=== PATIENT | female | born 1935 | race Caucasian/White ===

== ENCOUNTER 2016-05-26 21:18 | Emergency (ER) | payer MEDICARE, OTHER ==
--- NOTE | 2016-05-26 21:56 | ERPHSYRPT ---
- History of Present Illness Time Seen by Provider: 05/26/16 21:48 Exam Limitations: no limitations Patient Subjective Stated Complaint: pt states she has had a chest cold for a few ddays but has brgun feeling short of breath today. Triage Nursing Assessment: pt alert and oriented, answers questions approp. pt ambulatory with steady gait noted. respirations nonlaboed with lungscta. skin pink warm and dry Physician History: The patient is an 80-year-old female with her complaining of a cough for "some time now". Yesterday she was chilled. The cough brings up white and clear sputum. Today she has a "funny feeling in her chest" when she takes a deep breath. Her said she's had a cough for 3 or 4 years. She denies lightheadedness. She denies chest pain. Her past medical history is significant for hypertension. She denies tobacco use. Timing/Duration: yesterday Activities at Onset: none Severity of Dyspnea-Max: mild Severity of Dyspnea-Current: mild Possible Cause: occasional episodes Modifying Factors: Improves With: nothing Associated Symptoms: cough, productive cough Allergies/Adverse Reactions: No Known Drug Allergies Allergy (Verified 05/26/16 21:35) Home Medications: Verapamil HCl [Verapamil ER] 240 mg PO DAILY 07/27/13 [History] Hx Tetanus, Diphtheria Vaccination/Date Given: No Hx Influenza Vaccination/Date Given: Yes (2015) Hx Pneumococcal Vaccination/Date Given: No - Review of Systems Constitutional: Chills Eyes: No Symptoms Ears, Nose, & Throat: No Symptoms Respiratory: Cough Cardiac: No Chest Pain, No Edema, No Syncope Abdominal/Gastrointestinal: No Abdominal Pain, No Nausea, No Vomiting, No Diarrhea Genitourinary Symptoms: No Dysuria Musculoskeletal: No Back Pain, No Neck Pain Skin: No Rash Neurological: No Dizziness, No Focal Weakness, No Sensory Changes Psychological: No Symptoms Endocrine: No Symptoms Hematologic/Lymphatic: No Symptoms Immunological/Allergic: No Symptoms All Other Systems: Reviewed and Negative - Past Medical History Pertinent Past Medical History: Yes Neurological History: No Pertinent History ENT History: No Pertinent History Cardiac History: Hypertension Respiratory History: No Pertinent History Endocrine Medical History: No Pertinent History Musculoskeletal History: Degenerative Disk Disease, Osteoarthritis GI Medical History: No Pertinent History History: No Pertinent History Psycho-Social History: No Pertinent History Female Reproductive Disorders: No Pertinent History Other Medical History: LB FUSION ~6 YEARS AGO. - Past Surgical History Past Surgical History: Yes Neuro Surgical History: No Pertinent History Cardiac: No Pertinent History Respiratory: No Pertinent History Gastrointestinal: No Pertinent History Genitourinary: No Pertinent History Musculoskeletal: No Pertinent History Female Surgical History: No Pertinent History Other Surgical History: BACK SURGERY--LUMBAR - Social History Smoking Status: Never smoker Exposure to second hand smoke: No Drug Use: none Patient Lives Alone: No Significant Family History: heart disease - Female History Hx Last Menstrual Period: post Hx Now: No - Nursing Vital Signs Nursing Vital Signs: Initial Vital Signs Temperature 97.5 F Temperature Source Oral Pulse Rate 72 Respiratory Rate 22 Blood Pressure [Left Arm] 148/65 Pain Intensity 0 - Physical Exam General Appearance: no apparent distress, alert Eye Exam: PERRL/EOMI Ears, Nose, Throat Exam: hearing grossly normal Neck Exam: normal inspection, supple Respiratory Exam: normal breath sounds Cardiovascular/Chest Exam: normal heart sounds, regular rate/rhythm Abdominal/Gastrointestinal Exam: soft, No tenderness, No distention, No mass Rectal Exam: not done Extremity Exam: non-tender, normal range of motion, normal inspection, no calf tenderness, no pedal edema Neurologic Exam: alert, oriented x 3, cooperative, slipper maker II-XII nml as tested, sensation nml, No motor deficits Skin Exam: normal color, warm, No dry SpO2 Interpretation: normal SpO2: 99 Oxygen Delivery: Room Air - Course EKG Interpreted by Me: Sinus Rhythm, NORMAL INTERVALS, Right Bundle Branch Block , NORMAL ST-T - Radiology Exams Chest X-ray Interpretation: Interpreted by me, Negative, Other (multiple granulomas) Ordered Tests: Active Orders 24 hr Category Date Time Status CHEST 2 VIEWS (PA AND LAT) Stat Exams 05/26/16 22:00 Taken CBC W DIFF Stat Lab 05/26/16 22:01 Completed CMP Stat Lab 05/26/16 22:01 Completed NT PRO BNP Stat Lab 05/26/16 22:01 Completed Lab/Rad Data: Laboratory Result Diagrams 05/26/16 22:01 05/26/16 22:01 Laboratory Results 05/26/16 05/26/16 Range/Units 22:01 22:01 WBC 10.1 (4.0-10.5) K/mm3 RBC 4.16 (4.1-5.4) M/mm3 Hgb 13.3 (12.0-16.0) gm/dl Hct 40.1 (35-47) % MCV 96.4 (78-100) fl MCH 32.0 (26-32) pg MCHC 33.2 (32-36) g/dl RDW 13.4 (11.5-14.0) % Plt Count 210 (150-450) K/mm3 MPV 11.1 H (6-9.5) fl Gran % 61.4 (36.0-66.0) % Lymphocytes % 27.0 (24.0-44.0) % Monocytes % 10.5 (0.0-12.0) % Eosinophils % 1.0 (0.00-5.0) % Basophils % 0.1 (0.0-0.4) % Basophils # 0.01 (0-0.4) Sodium 142 (136-145) mEq/L Potassium 3.6 (3.5-5.1) mEq/L Chloride 104 (98-107) mEq/L Carbon Dioxide 26.8 (21-32) mEq/L Anion Gap 15.1 H (5-15) MEQ/L BUN 10 (9-20) mg/dL Creatinine 0.81 (0.55-1.30) mg/dl Estimated GFR > 60 ML/MIN Glucose 101 (70-110) MG/DL Calcium 8.8 (8.5-10.1) mg/dL Total Bilirubin 0.4 (0.2-1.0) mg/dL AST 13 L (15-37) U/L ALT 7 L (12-78) U/L Alkaline Phosphatase 77 (46-116) U/L NT-Pro-B Natriuret Pep 304 (0-450) pg/ml Serum Total Protein 6.5 (6.4-8.2) gm/dL Albumin 3.1 L (3.4-5.0) g/dL - Progress Progress: improved Air Movement: good Blood Culture(s) Obtained: No Antibiotics given: No Counseled pt/family regarding: lab results, diagnosis, rad results - Departure Time of Disposition: 22:58 Departure Disposition: Home Clinical Impression: Cough Condition: Stable Critical Care Time: No Additional Instructions: Take the azithromycin as directed. Tylenol and Ibuprofen as needed. Follow up in 2 to 3 days if no improvement. Prescriptions: Azithromycin [Azithromycin 250 mg Pack] 250 mg PO UD #6 tablet
[2016-05-26 22:12] LABS: BASOPHIL % 0.1 % (0.0-0.4); Granulocytes % 61.4 % (36.0-66.0); Mean Cell Volume 96.4 fl (78-100); Mean Platelet Volume 11.1 fl (6-9.5); Monocytes % 10.5 % (0.0-12.0); Platelet Count 210 K/mm3 (150-450); Red Blood Count 4.16 M/mm3 (4.1-5.4); Red Cell Distribution Width 13.4 % (11.5-14.0); White Blood Count 10.1 K/mm3 (4.0-10.5)
[2016-05-26 22:22] LABS: ALBUMIN 3.1 g/dL (3.4-5.0); ALKALINE PHOSPHATASE 77 U/L (46-116); ANION GAP 15.1 MEQ/L (5-15); BILIRUBIN,TOTAL 0.4 mg/dL (0.2-1.0); BLOOD UREA NITROGEN 10 mg/dL (9-20); CHLORIDE 104 mEq/L (98-107); Carbon Dioxide 26.8 mEq/L (21-32); Glucose 101 MG/DL (70-110); Potassium 3.6 mEq/L (3.5-5.1); SGOT/AST 13 U/L (15-37); SGPT/ALT 7 U/L (12-78); SODIUM 142 mEq/L (136-145); Total Protein 6.5 gm/dL (6.4-8.2)
[2016-05-26 23:17] VITALS: BP 145/68; PULSE 62; O2SAT 96
--- NOTE | 2016-05-27 08:34 | XRAY ---
Indication: Cough, congestion, chest pressure, fever, and chills. Comparison: May 15, 2012. AP/lateral chest again demonstrates normal heart and lungs with calcified granulomas. Bony thorax intact again with mild osteopenia and degenerative changes. No new/acute findings. Impression: Stable nonacute chest again with chronic features.
== END 2016-05-26 23:16 | disposition home or self-care (01) ==
LOC: ED 21:18
DX: R05 Cough (principal); I10 Essential (primary) hypertension
CPT/HCPCS: 36000; 36415; 71020; 80053; 83880; 85025; 93005; 99283

== ENCOUNTER 2016-11-26 09:15 | Day surgery (SDC) | payer MEDICARE, OTHER ==
[~2016-11-26 09:15] MED LIST: ACETAZOLAMIDE 250 MG TABLET PO ONE; Ak-Dilate OPHTHALMIC*** 0.71 ML, Cyclogyl 1% OPHTH SOL 5 ML 0.71 ML, GATIFLOXACIN 0.5% ... OP ONE; BETADINE 5% OPHTHALMIC 30 ML OP ONE; BSS 500 ML, Fortaz/Tazicef 1 GM** 0.2 G IO ONE; Epinephrine Preservative Free 1 MG/ML INTRAOP ONE; LIDOCAINE HCL 1% AMPUL 5 ML IJ ONE; Lactated Ringers 1,000 ML IV ONE; Lactated Ringers 1,000 ML IV SCH; TETRACAINE 0.5% STERI-UNIT SOL OP ONE; Zofran 4 MG/2 ML VIAL IV PRN
[2016-11-26] MEDS ORDERED: GARAMYCIN 0.3% OPHTH SOL OP ONE (09:16)
[2016-11-26] MEDS ORDERED: DIPRIVAN 200 MG/20 ML IV ONE (09:16)
--- NOTE | 2016-11-26 13:39 | OP ---
DATE/TIME OF OPERATION: 11/26/2016 1156 TIME DICTATED: 1312 PREOPERATIVE DIAGNOSIS: Senile cataract of right eye. POSTOPERATIVE DIAGNOSIS: Senile cataract of right eye. SURGEON: Cooper Penaloza MD LION TRAINER: None. OPERATION: Cataract extraction of right eye with an intraocular lens implant. STANDARD __X___ COMPLEX ANESTHESIA: MAC. ___X___ Monitored anesthesia care in combination with topical and intra-cameral anesthesia (because of the established specific risk of reflux, arrhythmias, or an anxiety attack associated with ocular manipulation as well as difficulty of the hair spinning machine operator to manage such potentially catastrophic events while simultaneously attempting to complete the surgical procedure, it was deemed necessary for the patient's safety to have an anesthesiologist or a nurse youth worker present during the procedure whenever possible. The anesthesiologist or the nurse youth worker was utilized to monitor and regulate the intravenous sedation of the patient, so the patient was cooperative, relaxed, and comfortable). Topical anesthesia using Tetracaine eye drops together with intra cameral anesthesia using Lidocaine 1% MPF. The nurse was utilized to monitor the patient. ANESTHESIA PROVIDER: Kvng Coburn CRNA. COMPLICATIONS: None. BLOOD LOSS: None. INDICATIONS: The patient is undergoing cataract surgery in the hopes of eliminating the visual complaints and difficulty. PROCEDURE: After arriving at the facility's outpatient surgery area, an IV was started; the patient was given 5 mg of p.o. Versed. (If an anesthesia provider was not monitoring the patient) The patient was then given topical anesthetic Tetracaine eye drops. A cotton pellet was soaked into a solution of a combination of Zymaxid 0.5%, Sharan-Synephrine 2.5% and Ocufen (other drops might have been substituted referenced in the patient's record). The pellet was inserted by the RN into the lower conjunctival cul-de-sac with a sterile forceps and left for 20 minutes. The pellet was then removed by the RN with a sterile forceps before taking the patient to the operating room. The preoperative area nurse identified the patient and marked the correct eye to be operated on. I identified the correct eye to be operated on and marked it appropriately in the outpatient surgery area. The patient was then taken into the operating room. Tetracaine eye drops were installed again in the correct eye. The eyelids and the lashes and the lid margins were scrubbed with Betadine solution. One drop of the diluted Betadine solution was placed in the conjunctival cul-de-sac for 45 seconds and then was irrigated. A drop of Tetracaine Gel was placed in the conjunctival cul-de-sac. The patient's forehead was taped to secure it during the procedure. The patient was monitored. The patient was then draped in the usual way for this procedure. An eye speculum was used to separate the eyelids. The eye was then fixated and a temporal 2.5 mm incision was made in the clear cornea temporally at the limbus. Through the incision, 0.25 cc of 1% non-preserved lidocaine was injected into the anterior chamber for intracameral anesthesia. The anterior chamber was then filled with viscoelastic. The pupil was small. I felt that it would be safer to mechanically dilate the pupil. A Malyugin ring was used at this point which dilated the pupil. That was removed at the end of the procedure prior to aspiration of the viscoelastic from the anterior chamber and posterior to the intraocular lens implant. The cataract had a great amount of cortical changes. That rendered seeing the anterior capsule difficult for a safe performance of an anterior capsulotomy. I injected an air bubble into the anterior chamber. I then injected 1 ML of vision blue solution into the anterior chamber. The vision blue solution was irrigated from the anterior chamber after 30 seconds. The anterior capsule was stained which facilitated performing the anterior capsulotomy safely. After that was completed, a cystotome was introduced into the anterior chamber and a round anterior capsulotomy was performed. The capsule was removed by a forceps. Hydrodissection was next carried utilizing a 25-gauge cannula and balanced salt solution to delineate the cortical material from the capsule and the nucleus from the cortical material. The nucleus was rotated freely into the capsular bag with no difficulty. The phaco tip of the Reese [employer] Phacoemulsifier was introduced into the anterior chamber and two grooves were made into the nucleus 90 degrees apart. Using two spatulas resulted into the nucleus being fractured into four quadrants. The phaco tip was then used to remove each quadrant of the nucleus. Viscoelastic was used during this process to protect the corneal endothelium. Once the entire nucleus was removed, the phaco tip then was removed and the irrigation tip was introduced into the eye and the cortex was removed. The posterior capsule was polished. It was noticed that there was a tear into the posterior capsule with few vitreous strands into the pupil plan. An anterior vitrectomy was performed. A 21.50 diopter, [id number] Symfony implant, was inspected and found to be grossly normal. The implant was inserted into the implant injector cartridge; Viscoelastic again was introduced into the anterior chamber, which filled the capsular bag. The implant injector's cartridge tip was placed at the limbal wound and the posterior chamber implant was released into the capsular bag and rotated appropriately. The implant was found to be into the capsular bag and it was centered. __X__ 0.2 ml of Tri-Moxi was introduced via 27 gauge cannula into the vitreous cavity through the ciliary processes. Viscoelastic was aspirated from the anterior chamber and posterior to the intraocular lens implant from the capsular bag using the irrigating tip. The anterior chamber was irrigated and filled with 5 cc antibiotic solution (500 cc of BSS plus 2 ml of Fortaz 100 mg/ml) ( if patient was not allergic to the medication). The lips of the corneal incision were hydrated using BSS solution. The anterior chamber was checked and found to be water tight. One drop each of antibiotic, steroid and NSAID drops (refer to chart for drops used) were placed in the conjunctival cul-de-sac of the operated eye. Patient tolerated the procedure quite well and left the operating room in satisfactory condition. NOTES: 1) Gentamicin eye solution was placed into the conjunctival cul-de-sac and for the patient to use four times a day for one week. 2) Two limbal relaxing incisions were made at the 177 degree meridian at the beginning of the procedure. DISCHARGE SUMMARY: The patient was released in stable condition. The patient and those with the patient were given an instruction sheet as of how to care for the eye after surgery as well as counseling on any abnormal laboratory studies by the postoperative RN. The patient was also given an appointment card for follow-up in the office and is to call immediately for any difficulties including but not limited to pain in the eye, decreased vision, discharge from the eye, headache and or fever. DISCHARGE DIAGNOSIS: Pseudophakia of right eye.
[2016-11-26 14:08] VITALS: O2SAT 97
[2016-11-26 14:09] VITALS: BP 122/59; PULSE 57
== END 2016-11-26 13:20 | disposition home or self-care (01) ==
LOC: SDC 09:15
PROVIDERS: ATTEND Ophthalmology
PROC: 08RJ3JZ Replacement of Right Lens with Synthetic Substitute, Percutaneous Approach (ICD-10-PCS; principal; 2016-11-26)
PROC: 08B43ZZ Excision of Right Vitreous, Percutaneous Approach (ICD-10-PCS; 2016-11-26)
DX: H25.9 Unspecified age-related cataract (principal); F03.90 Unspecified dementia, unspecified severity, without behavioral disturbance, psychotic disturbance, mood disturbance, and anxiety; F32.9 Major depressive disorder, single episode, unspecified; I10 Essential (primary) hypertension; H04.129 Dry eye syndrome of unspecified lacrimal gland
CPT/HCPCS: 00142; 99100; C1780; J0171; J2704; S0581; A9270-GY

== ENCOUNTER 2016-12-31 11:20 | Day surgery (SDC) | payer MEDICARE, OTHER ==
[~2016-12-31 11:20] MED LIST changes: -BETADINE 5% OPHTHALMIC 30 ML OP ONE; -BSS 500 ML, Fortaz/Tazicef 1 GM** 0.2 G IO ONE; -Epinephrine Preservative Free 1 MG/ML INTRAOP ONE; -LIDOCAINE HCL 1% AMPUL 5 ML IJ ONE
[2016-12-31] MEDS ORDERED: DIPRIVAN 200 MG/20 ML IV ONE (11:21)
[2016-12-31] MEDS ORDERED: LIDOCAINE HCL 1% AMPUL 5 ML IJ ONE (13:30)
[2016-12-31] MEDS ORDERED: BSS 500 ML, Fortaz/Tazicef 1 GM** 0.2 G IO ONE ×2 (13:30)
[2016-12-31] MEDS ORDERED: Epinephrine Preservative Free 1 MG/ML INTRAOP ONE (13:30)
[2016-12-31] MEDS ORDERED: BETADINE 5% OPHTHALMIC 30 ML OP ONE (13:30)
[2016-12-31 13:56] VITALS: PULSE 48
[2016-12-31 14:07] VITALS: BP 157/82; O2SAT 98
--- NOTE | 2017-01-01 08:31 | OP ---
DATE/TIME OF OPERATION: 12/31/2016 1257 TIME DICTATED: 1522 PREOPERATIVE DIAGNOSIS: Cataract left eye. POSTOPERATIVE DIAGNOSIS: Cataract left eye. SURGEON: Cooper Penaloza MD ELASTIC TAPE INSERTER: None. OPERATION: Cataract extraction of left eye with an intraocular lens implant. STANDARD __X___ COMPLEX ANESTHESIA: MAC. ___X___ Monitored anesthesia care in combination with topical and intra-cameral anesthesia (because of the established specific risk of reflux, arrhythmias, or an anxiety attack associated with ocular manipulation as well as difficulty of the balcony worker to manage such potentially catastrophic events while simultaneously attempting to complete the surgical procedure, it was deemed necessary for the patient's safety to have an anesthesiologist or a nurse piercing mill operator present during the procedure whenever possible. The anesthesiologist or the nurse piercing mill operator was utilized to monitor and regulate the intravenous sedation of the patient, so the patient was cooperative, relaxed, and comfortable). Topical anesthesia using Tetracaine eye drops together with intra cameral anesthesia using Lidocaine 1% MPF. The nurse was utilized to monitor the patient. ANESTHESIA PROVIDER: Kvng Coburn CRNA. COMPLICATIONS: None. BLOOD LOSS: None. INDICATIONS: The patient is undergoing cataract surgery in the hopes of eliminating the visual complaints and difficulty. PROCEDURE: After arriving at the facility's outpatient surgery area, an IV was started; the patient was given 5 mg of p.o. Versed. (If an anesthesia provider was not monitoring the patient) The patient was then given topical anesthetic Tetracaine eye drops. A cotton pellet was soaked into a solution of a combination of Zymaxid 0.5%, Sharan-Synephrine 2.5% and Ocufen (other drops might have been substituted referenced in the patient's record). The pellet was inserted by the RN into the lower conjunctival cul-de-sac with a sterile forceps and left for 20 minutes. The pellet was then removed by the RN with a sterile forceps before taking the patient to the operating room. The preoperative area nurse identified the patient and marked the correct eye to be operated on. I identified the correct eye to be operated on and marked it appropriately in the outpatient surgery area. The patient was then taken into the operating room. Tetracaine eye drops were installed again in the correct eye. The eyelids and the lashes and the lid margins were scrubbed with Betadine solution. One drop of the diluted Betadine solution was placed in the conjunctival cul-de-sac for 45 seconds and then was irrigated. A drop of Tetracaine Gel was placed in the conjunctival cul-de-sac. The patient's forehead was taped to secure it during the procedure. The patient was monitored. The patient was then draped in the usual way for this procedure. An eye speculum was used to separate the eyelids. The eye was then fixated and a temporal 2.5 mm incision was made in the clear cornea temporally at the limbus. Through the incision, 0.25 cc of 1% non-preserved lidocaine was injected into the anterior chamber for intracameral anesthesia. The anterior chamber was then filled with viscoelastic. The pupil was small. I felt that it would be safer to mechanically dilate the pupil. A Malyugin ring was used at this point which dilated the pupil. That was removed at the end of the procedure prior to aspiration of the viscoelastic from the anterior chamber and posterior to the intraocular lens implant. The cataract had a great amount of cortical changes. That rendered seeing the anterior capsule difficult for a safe performance of an anterior capsulotomy. I injected an air bubble into the anterior chamber. I then injected 1 ML of vision blue solution into the anterior chamber. The vision blue solution was irrigated from the anterior chamber after 30 seconds. The anterior capsule was stained which facilitated performing the anterior capsulotomy safely. After that was completed, a cystotome was introduced into the anterior chamber and a round anterior capsulotomy was performed. The capsule was removed by a forceps. Hydrodissection was next carried utilizing a 25-gauge cannula and balanced salt solution to delineate the cortical material from the capsule and the nucleus from the cortical material. The nucleus was rotated freely into the capsular bag with no difficulty. The phaco tip of the Reese [employer] Phacoemulsifier was introduced into the anterior chamber and two grooves were made into the nucleus 90 degrees apart. Using two spatulas resulted into the nucleus being fractured into four quadrants. The phaco tip was then used to remove each quadrant of the nucleus. Viscoelastic was used during this process to protect the corneal endothelium. Once the entire nucleus was removed, the phaco tip then was removed and the irrigation tip was introduced into the eye and the cortex was removed. The posterior capsule was polished. It was noticed that there was a tear into the posterior capsule with few vitreous strands into the pupil plan. An anterior vitrectomy was performed. A 22.00 diopter, [id number], Toric posterior chamber lens implant, was inspected and found to be grossly normal. The implant was inserted into the implant injector cartridge; Viscoelastic again was introduced into the anterior chamber, which filled the capsular bag. The implant injector's cartridge tip was placed at the limbal wound and the posterior chamber implant was released into the capsular bag and rotated appropriately. The implant was found to be into the capsular bag and it was centered. __X__ 0.2 ml of Tri-Moxi was introduced via 27 gauge cannula into the vitreous cavity through the ciliary processes. Viscoelastic was aspirated from the anterior chamber and posterior to the intraocular lens implant from the capsular bag using the irrigating tip. The anterior chamber was irrigated and filled with 5 cc antibiotic solution (500 cc of BSS plus 2 ml of Fortaz 100 mg/ml) ( if patient was not allergic to the medication). The lips of the corneal incision were hydrated using BSS solution. The anterior chamber was checked and found to be water tight. One drop each of antibiotic, steroid and NSAID drops (refer to chart for drops used) were placed in the conjunctival cul-de-sac of the operated eye. Patient tolerated the procedure quite well and left the operating room in satisfactory condition. NOTE: The axis of the Toric intraocular implant was lined up at 175 degrees meridian. DISCHARGE SUMMARY: The patient was released in stable condition. The patient and those with the patient were given an instruction sheet as of how to care for the eye after surgery as well as counseling on any abnormal laboratory studies by the postoperative RN. The patient was also given an appointment card for follow-up in the office and is to call immediately for any difficulties including but not limited to pain in the eye, decreased vision, discharge from the eye, headache and or fever. DISCHARGE DIAGNOSIS: Pseudophakia of left eye.
== END 2016-12-31 14:23 | disposition home or self-care (01) ==
LOC: SDC 11:20
PROVIDERS: ATTEND Ophthalmology
PROC: 08RK3JZ Replacement of Left Lens with Synthetic Substitute, Percutaneous Approach (ICD-10-PCS; principal; 2016-12-31)
PROC: 08B53ZZ Excision of Left Vitreous, Percutaneous Approach (ICD-10-PCS; 2016-12-31)
DX: H26.9 Unspecified cataract (principal); I10 Essential (primary) hypertension; H04.129 Dry eye syndrome of unspecified lacrimal gland; F03.90 Unspecified dementia, unspecified severity, without behavioral disturbance, psychotic disturbance, mood disturbance, and anxiety; F32.9 Major depressive disorder, single episode, unspecified; J45.909 Unspecified asthma, uncomplicated; Z79.899 Other long term (current) drug therapy
CPT/HCPCS: 66984; 67005; V2788; 00142; 66982; 99100; J0171; J2704; A9270-GY

== ENCOUNTER 2017-06-04 19:21 | Inpatient (IN) | payer MEDICARE, OTHER ==
[2017-06-04] MEDS ORDERED: TYLENOL 325 MG PO STA (19:35)
[2017-06-04] MEDS ORDERED: Sodium Chloride 0.9% 1000 ML 1,000 ML IV STA (19:35)
[2017-06-04] MEDS ORDERED: Sodium Chloride 0.9% 1000 ML 1,000 ML ONE ×2 (19:38→21:09)
[2017-06-04] MEDS ORDERED: TYLENOL 325 MG ONE (19:42)
--- NOTE | 2017-06-04 19:44 | ERPHSYRPT ---
- History of Present Illness Time Seen by Provider: 06/04/17 19:35 Source: patient, EMS Exam Limitations: no limitations Patient Subjective Stated Complaint: DROWSY. STATES HAS DIARRHEA AND VOMITING TODAY.. STARTED AND ANTIBIOTIC BUT UNSURE WHEN. IS ISCK AT HOME. Triage Nursing Assessment: AWAKE AND DROWSY. WARM TO TOUCH. SHE STATES NUASEA, VOMITING AND DIARRHEA TODAY.. UNSURE IF SHE HAS FEVER.SKIN WARM TO TOUCH. Physician History: Pt started c/o vomiting, diarrhea, generalized weakness today. Her was diagnosed with influenza,and she was given Tamiflu for prevention. She took one last night. She was given Zofran iv and fluids by EMS, denies pain, only generalized discomfort and weakness, chills. No abdominal pain, chest pain or SOB, she has been coughing for few days. Timing/Duration: today Fever Severity: moderate Fever Therapy DRYWALLER: none Associated Symptoms: cough, muscle aches, nausea/vomiting Allergies/Adverse Reactions: No Known Drug Allergies Allergy (Verified 12/25/16 13:38) Home Medications: Verapamil HCl [Verapamil ER] 240 mg PO DAILY 07/27/13 [History] Ibuprofen 200 mg [Motrin 200 mg] 200 mg PO UD 12/31/16 [History] Hx Tetanus, Diphtheria Vaccination/Date Given: No Hx Influenza Vaccination/Date Given: Yes (2015) Hx Pneumococcal Vaccination/Date Given: No - Review of Systems Constitutional: Fever, Chills, Fatigue Respiratory: Cough Abdominal/Gastrointestinal: Nausea, Vomiting, Diarrhea All Other Systems: Reviewed and Negative - Past Medical History Pertinent Past Medical History: Yes Neurological History: No Pertinent History ENT History: Cataracts Cardiac History: Hypertension Respiratory History: No Pertinent History Endocrine Medical History: No Pertinent History Musculoskeletal History: Degenerative Disk Disease, Osteoarthritis GI Medical History: No Pertinent History History: No Pertinent History Psycho-Social History: No Pertinent History Female Reproductive Disorders: No Pertinent History Other Medical History: LB FUSION ~6 YEARS AGO. - Past Surgical History Past Surgical History: Yes Neuro Surgical History: No Pertinent History Cardiac: No Pertinent History Respiratory: No Pertinent History Gastrointestinal: No Pertinent History Genitourinary: No Pertinent History Musculoskeletal: No Pertinent History Female Surgical History: No Pertinent History Other Surgical History: BACK SURGERY--LUMBAR - Social History Smoking Status: Never smoker Exposure to second hand smoke: No Drug Use: none Patient Lives Alone: No Significant Family History: heart disease - Nursing Vital Signs Nursing Vital Signs: Initial Vital Signs Temperature 102.4 F 06/04/17 19:30 Pulse Rate 116 H 06/04/17 19:30 Respiratory Rate 18 06/04/17 19:30 Blood Pressure 172/86 06/04/17 19:30 O2 Sat by Pulse Oximetry 93 L 06/04/17 19:30 Pain Scale Pain Intensity 0 - Physical Exam General Appearance: no apparent distress Eye Exam: PERRL/EOMI ENT Exam: normal ENT inspection, pharynx normal Neck Exam: normal inspection, non-tender, supple, trachea midline, No JVD, No lymphadenopathy (R), No lymphadenopathy (L) Respiratory Exam: normal breath sounds, chest non-tender, lungs clear, no respiratory distress, no accessory muscle use Cardiovascular/Chest Exam: normal heart sounds, normal peripheral pulses, tachycardia, No murmur, No edema, No JVD Gastrointestinal/Abdominal Exam: soft, non tender, no distention, no mass, no guarding, no organomegaly Extremity Exam: non-tender, no pedal edema, No no calf tenderness Neurologic Exam: alert, oriented x 3, cooperative, normal mood/affect Skin Exam: normal color, warm, dry, No rash Lymphatic: No adenopathy SpO2 Interpretation: normal SpO2: 93 Oxygen Delivery: Room Air - Course Nursing assessment & vital signs reviewed: Yes EKG Interpreted by Me: RATE, Sinus Tach, Left [place] Deviation, Right Bundle Branch Block, Non-specific ST Changes Ordered Tests: Active Orders 24 hr Category Date Time Status [place] Manager STAT Care 06/04/17 19:37 Active Catheter-[place] STAT Care 06/04/17 19:35 Active EKG-ER Only STAT Care 06/04/17 19:35 Active IV Insertion-2nd Peripheral STAT Care 06/04/17 19:35 Active Pulse Oximetry (ED) STAT Care 06/04/17 19:35 Active CHEST 1 VIEW (PORTABLE) Stat Exams 06/04/17 19:36 Taken BLOOD CULTURE Stat Lab 06/04/17 20:20 Received CBC W DIFF Stat Lab 06/04/17 19:45 Completed CMP Stat Lab 06/04/17 19:45 Completed CULTURE, THROAT Stat Lab 06/04/17 20:20 Received CULTURE,URINE Stat Lab 06/04/17 20:20 Received Lactic Acid Stat Lab 06/04/17 19:59 Results PROTIME WITH INR Stat Lab 06/04/17 19:45 Completed PTT Stat Lab 06/04/17 19:45 Completed STREP SCREEN-BETA A Stat Lab 06/04/17 20:20 Completed TROPONIN Q3H Lab 06/04/17 19:45 Completed TROPONIN Q3H Lab 06/04/17 22:45 Ordered UA W/ MICROSCOPIC Stat Lab 06/04/17 20:20 Results Medication Summary Discontinued Medications Generic Name Dose Route Start Last Admin Trade Name Joey PRN Reason Stop Dose Admin Acetaminophen 650 mg 06/04/17 19:35 06/04/17 19:43 Tylenol 325 Mg PO 06/04/17 19:36 650 mg STAT STA Administration Acetaminophen Confirm 06/04/17 19:42 Tylenol 325 Mg Administered 06/04/17 19:43 Dose 650 mg .ROUTE .STK-MED ONE Sodium Chloride 1,000 mls @ 999 mls/hr 06/04/17 19:35 06/04/17 19:41 Sodium Chloride 0.9% 1000 Ml IV 06/04/17 20:35 999 mls/hr .Q1H1M STA Administration Sodium Chloride Confirm 06/04/17 19:38 Sodium Chloride 0.9% 1000 Ml Administered 06/04/17 19:39 Dose 1,000 mls @ ud .ROUTE .STK-MED ONE Sodium Chloride Confirm 06/04/17 21:09 Sodium Chloride 0.9% 1000 Ml Administered 06/04/17 21:10 Dose 1,000 mls @ ud .ROUTE .STK-MED ONE Lab/Rad Data: Laboratory Result Diagrams 06/04/17 19:45 06/04/17 19:45 Laboratory Results 06/04/17 06/04/17 06/04/17 Range/Units 20:20 20:20 20:20 WBC (4.0-10.5) K/mm3 RBC (4.1-5.4) M/mm3 Hgb (12.0-16.0) gm/dl Hct (35-47) % MCV (78-100) fl MCH (26-32) pg MCHC (32-36) g/dl RDW (11.5-14.0) % Plt Count (150-450) K/mm3 MPV (6-9.5) fl Gran % (36.0-66.0) % Lymphocytes % (24.0-44.0) % Monocytes % (0.0-12.0) % Eosinophils % (0.00-5.0) % Basophils % (0.0-0.4) % Basophils # (0-0.4) INR (0.8-3.0) APTT (25.3-37.0) SECONDS Sodium (136-145) mEq/L Potassium (3.5-5.1) mEq/L Chloride (98-107) mEq/L Carbon Dioxide (21-32) mEq/L Anion Gap (5-15) MEQ/L BUN (9-20) mg/dL Creatinine (0.55-1.30) mg/dl Estimated GFR ML/MIN Glucose (70-110) MG/DL Lactic Acid (0.4-2.0) Calcium (8.5-10.1) mg/dL Total Bilirubin (0.2-1.0) mg/dL AST (15-37) U/L ALT (12-78) U/L Alkaline Phosphatase (46-116) U/L Troponin I (0.000-0.056) ng/ml Serum Total Protein (6.4-8.2) gm/dL Albumin (3.4-5.0) g/dL Ur Collection Type Pending Urine Color Pending Urine Appearance Pending Urine pH Pending Ur Specific [place] Pending Urine Protein Pending Urine Ketones Pending Urine Blood Pending Urine Nitrite Pending Urine Bilirubin Pending Urine Urobilinogen Pending Ur Leukocyte Esterase Pending Urine Glucose Pending Influenza Type A Ag NEGATIVE (NEGATIVE) Influenza Type B Ag NEGATIVE (NEGATIVE) RSV (PCR) NEGATIVE (Negative) Streptococcus Screen NEGATIVE (Negative) Specimen Received Pending 06/04/17 06/04/17 06/04/17 Range/Units 19:59 19:45 19:45 WBC (4.0-10.5) K/mm3 RBC (4.1-5.4) M/mm3 Hgb (12.0-16.0) gm/dl Hct (35-47) % MCV (78-100) fl MCH (26-32) pg MCHC (32-36) g/dl RDW (11.5-14.0) % Plt Count (150-450) K/mm3 MPV (6-9.5) fl Gran % (36.0-66.0) % Lymphocytes % (24.0-44.0) % Monocytes % (0.0-12.0) % Eosinophils % (0.00-5.0) % Basophils % (0.0-0.4) % Basophils # (0-0.4) INR 1.00 (0.8-3.0) APTT 29.1 (25.3-37.0) SECONDS Sodium (136-145) mEq/L Potassium (3.5-5.1) mEq/L Chloride (98-107) mEq/L Carbon Dioxide (21-32) mEq/L Anion Gap (5-15) MEQ/L BUN (9-20) mg/dL Creatinine (0.55-1.30) mg/dl Estimated GFR ML/MIN Glucose (70-110) MG/DL Lactic Acid 2.2 H (0.4-2.0) Calcium (8.5-10.1) mg/dL Total Bilirubin (0.2-1.0) mg/dL AST (15-37) U/L ALT (12-78) U/L Alkaline Phosphatase (46-116) U/L Troponin I < 0.017 (0.000-0.056) ng/ml Serum Total Protein (6.4-8.2) gm/dL Albumin (3.4-5.0) g/dL Ur Collection Type Urine Color Urine Appearance Urine pH Ur Specific [place] Urine Protein Urine Ketones Urine Blood Urine Nitrite Urine Bilirubin Urine Urobilinogen Ur Leukocyte Esterase Urine Glucose Influenza Type A Ag (NEGATIVE) Influenza Type B Ag (NEGATIVE) RSV (PCR) (Negative) Streptococcus Screen (Negative) Specimen Received 06/04/17 06/04/17 Range/Units 19:45 19:45 WBC 11.9 H (4.0-10.5) K/mm3 RBC 4.63 (4.1-5.4) M/mm3 Hgb 14.7 (12.0-16.0) gm/dl Hct 44.6 (35-47) % MCV 96.3 (78-100) fl MCH 31.7 (26-32) pg MCHC 33.0 (32-36) g/dl RDW 13.9 (11.5-14.0) % Plt Count 241 (150-450) K/mm3 MPV 11.0 H (6-9.5) fl Gran % 88.1 H (36.0-66.0) % Lymphocytes % 10.7 L (24.0-44.0) % Monocytes % 0.8 (0.0-12.0) % Eosinophils % 0.3 (0.00-5.0) % Basophils % 0.1 (0.0-0.4) % Basophils # 0.01 (0-0.4) INR (0.8-3.0) APTT (25.3-37.0) SECONDS Sodium 137 (136-145) mEq/L Potassium 3.5 (3.5-5.1) mEq/L Chloride 99 (98-107) mEq/L Carbon Dioxide 24.4 (21-32) mEq/L Anion Gap 16.6 H (5-15) MEQ/L BUN 11 (9-20) mg/dL Creatinine 1.16 (0.55-1.30) mg/dl Estimated GFR 47 ML/MIN Glucose 123 H (70-110) MG/DL Lactic Acid (0.4-2.0) Calcium 9.0 (8.5-10.1) mg/dL Total Bilirubin 0.40 (0.2-1.0) mg/dL AST 22 (15-37) U/L ALT 15 (12-78) U/L Alkaline Phosphatase 110 (46-116) U/L Troponin I (0.000-0.056) ng/ml Serum Total Protein 7.5 (6.4-8.2) gm/dL Albumin 3.8 (3.4-5.0) g/dL Ur Collection Type Urine Color Urine Appearance Urine pH Ur Specific [place] Urine Protein Urine Ketones Urine Blood Urine Nitrite Urine Bilirubin Urine Urobilinogen Ur Leukocyte Esterase Urine Glucose Influenza Type A Ag (NEGATIVE) Influenza Type B Ag (NEGATIVE) RSV (PCR) (Negative) Streptococcus Screen (Negative) Specimen Received - Progress Progress: improved Progress Note: 06/04/17 21:40 Pt and her family was informed about results, influenza negative, lactic acid 2.2, chest X ray: negative. She improved after iv fluids, not nauseated, afebrile, deneis chest pain or abdominal pain, abdomen is soft, nontender. I called Dr Sands, discussed her results and currebt condition, he agreed to admit her for further care, as regular admission to Telemetry, patient and her family informed, they agreed. Discussed with : Imelda Will see patient in: hospital (full admit) Counseled pt/family regarding: lab results, diagnosis - Departure Time of Disposition: 21:42 Departure Disposition: In-patient Admission Clinical Impression: Vomiting Qualifiers: Vomiting type: unspecified Vomiting Intractability: non-intractable Nausea presence: with nausea Qualified Code(s): R11.2 - Nausea with vomiting, unspecified Fever Qualifiers: Fever type: due to other condition Qualified Code(s): R50.81 - Fever presenting with conditions classified elsewhere Condition: Good Critical Care Time: No Referrals: CIRO SY [Primary Care Provider] -
[2017-06-04 20:06] LABS: BASOPHIL % 0.1 % (0.0-0.4); Basophil (Absolute #) 0.01 (0-0.4); Eosinophil % 0.3 % (0.00-5.0); Eosinophil (Absolute #) 0.03 (0-0.5); Granulocyte Absolute (ANC) 10.46 (1.4-6.9); Granulocytes % 88.1 % (36.0-66.0); Hematocrit 44.6 % (35-47); Hemoglobin 14.7 gm/dl (12.0-16.0); Lymphocyte (Absolute #) 1.27 (1.0-4.6); Lymphocytes % 10.7 % (24.0-44.0); Mean Cell Volume 96.3 fl (78-100); Mean Corpuscular Hemoglobin 31.7 pg (26-32); Monocyte (Absolute #) 0.09 (0.0-1.3); Monocytes % 0.8 % (0.0-12.0); Platelet Count 241 K/mm3 (150-450); Red Blood Count 4.63 M/mm3 (4.1-5.4); Red Cell Distribution Width 13.9 % (11.5-14.0); White Blood Count 11.9 K/mm3 (4.0-10.5)
[2017-06-04 20:10] LABS: Lactic Acid 2.2 (0.4-2.0)
[2017-06-04 20:21] LABS: PTT 29.1 SECONDS (25.3-37.0)
[2017-06-04 20:42] LABS: ALBUMIN 3.8 g/dL (3.4-5.0); ANION GAP 16.6 MEQ/L (5-15); BILIRUBIN,TOTAL 0.4 mg/dL (0.2-1.0); Carbon Dioxide 24.4 mEq/L (21-32); Creatinine 1 1.16 mg/dl (0.55-1.30); Potassium 3.5 mEq/L (3.5-5.1); Total Protein 7.5 gm/dL (6.4-8.2)
[2017-06-04 21:08] LABS: INFLUENZA A NEGATIVE (NEGATIVE); INFLUENZA B NEGATIVE (NEGATIVE); RESPIRATORY SYNCTIAL VIRUS NEGATIVE (Negative)
[2017-06-04 21:34] LABS: Appearance CLEAR (CLEAR); Bilirubin NEGATIVE (NEGATIVE); Blood 50 Ery/ul (0-5); Glucose NEGATIVE (NEGATIVE); Ketones SMALL (NEGATIVE); Leukocyte Esterase NEGATIVE (NEGATIVE); Nitrite NEGATIVE (NEGATIVE); Protein,Urine Dip NEGATIVE (Negative); Urobilinogen NORMAL mg/dL (0-1)
[2017-06-04] MEDS ORDERED: ROCEPHIN 1 Gm-D5w 50 ml Bag** 1 G/50 ML IVPB IV STA (21:36)
[2017-06-04] MEDS ORDERED: ROCEPHIN 1 Gm-D5w 50 ml Bag** 1 G/50 ML IVPB IV ONE (21:38)
[2017-06-04] MEDS ORDERED: Zofran 4 MG/2 ML VIAL IV ONE (21:43)
[2017-06-04] MEDS ORDERED: DUONEB 0.5-3 MG/3 ml Neb IH PRN (21:44)
[2017-06-04] MEDS ORDERED: TYLENOL 325 MG PO PRN (21:44)
[2017-06-04] MEDS ORDERED: Zofran 4 MG/2 ML VIAL ONE (21:46)
[2017-06-04] MEDS ORDERED: Zofran 4 MG/2 ML VIAL IV PRN (21:47)
[2017-06-04] MEDS ORDERED: Zithromax 500 MG/ 250 ML NaCl Premix 500 MG/250 ML IVPB IV ONE (21:52)
[2017-06-04 22:22] LABS: Mucus SLIGHT /HPF (NEGATIVE); WBC 0-2 /HPF (0-5)
[2017-06-05] MEDS: Pepcid 20 MG VIAL IV SCH ×3 (00:35→21:05)
[2017-06-05] MEDS: Sodium Chloride 0.9% 1000 ML 1,000 ML IV SCH ×2 (04:27→14:55)
[2017-06-05 06:24] LABS: BASOPHIL % 0.1 % (0.0-0.4); Basophil (Absolute #) 0.01 (0-0.4); Eosinophil % 0.1 % (0.00-5.0); Eosinophil (Absolute #) 0.01 (0-0.5); Granulocyte Absolute (ANC) 6.09 (1.4-6.9); Granulocytes % 77.4 % (36.0-66.0); Hematocrit 34.6 % (35-47); Hemoglobin 11.5 gm/dl (12.0-16.0); Lymphocyte (Absolute #) 1.03 (1.0-4.6); Lymphocytes % 13.1 % (24.0-44.0); Mean Cell Volume 96.1 fl (78-100); Mean Corpuscular Hemoglobin 31.9 pg (26-32); Mean Corpuscular Hgb Concent. 33.2 g/dl (32-36); Mean Platelet Volume 10.5 fl (6-9.5); Monocyte (Absolute #) 0.73 (0.0-1.3); Monocytes % 9.3 % (0.0-12.0); Platelet Count 190 K/mm3 (150-450); Red Cell Distribution Width 13.9 % (11.5-14.0); White Blood Count 7.9 K/mm3 (4.0-10.5)
[2017-06-05 06:28] LABS: ANION GAP 11.1 MEQ/L (5-15); BLOOD UREA NITROGEN 7 mg/dL (9-20); CHLORIDE 105 mEq/L (98-107); Carbon Dioxide 24.2 mEq/L (21-32); Creatinine 1 0.75 mg/dl (0.55-1.30); EST GLOMERULAR FILTRATION RATE > 60 ML/MIN; Glucose 105 MG/DL (70-110); Potassium 3.5 mEq/L (3.5-5.1); SODIUM 137 mEq/L (136-145)
[2017-06-05] MEDS ORDERED: NORCO 5/325 MG PO PRN (08:20)
--- NOTE | 2017-06-05 08:44 | XRAY ---
Indication: Possible sepsis. Comparison: May 26, 2016. Portable chest demonstrates new left base infiltrate/atelectasis without consolidation or large effusion. Stable right lung calcified granulomas. Heart is not enlarged. Bony thorax intact. Comment: Left lung findings not reported on preliminary interpretation by interpreting ER clinician. Telephone report given to Dr. Thapa in the ER at 0840 hrs. on June 05, 2017.
--- NOTE | 2017-06-05 08:49 | PCM.HP ---
History of Present Illness - Chief Complaint Chief Complaint: Fever, Vomiting, Nausea Date: 06/05/17 History of Present Illness: is a 81 year old female. Her recently had influenza B and she had some soup delivered in the morning but then developed mucous bloody diarrhea and vomiting that was severe and after several hours her family had her taken to the ED. She was found to be febrile and with bloody mucous like stools and the vomiting was relieved with iv zofran. This am she is feeling better no abdominal pain right now no vomiting tolerating clears was afebrile since original fever. She is feeling weak and tired. She does have mild dementia her daughter helps supplement the history. - Review of Systems Constitutional: Fever, Chills, Fatigue Eyes: No Symptoms Ears, Nose, & Throat: No Symptoms Respiratory: No Cough, No Short Of Breath Cardiac: No Chest Pain, No Edema, No Syncope Abdominal/Gastrointestinal: Nausea, Vomiting, Diarrhea, No Abdominal Pain Genitourinary Symptoms: No Dysuria Musculoskeletal: No Back Pain, No Neck Pain Skin: No Rash Neurological: No Dizziness, No Focal Weakness, No Sensory Changes Psychological: No Symptoms Endocrine: No Symptoms Hematologic/Lymphatic: No Symptoms Immunological/Allergic: No Symptoms Medications & Allergies Home Medications: Home Medication List Lisinopril 10 mg [Zestril 10 MG] 10 mg PO DAILY 06/04/17 [History Confirmed 06/04/17] Omeprazole 20 MG [Prilosec 20 mg] 20 mg PO DAILY 06/04/17 [History Confirmed ] Oseltamivir Phosphate 75 mg PO DAILY 06/04/17 [History Confirmed 06/04/17] Allergies/Adverse Reactions: Allergies Allergy/AdvReac Type Severity Reaction Status Date / Time No Known Drug Allergies Allergy Verified 12/25/16 13:38 - Past Medical History Past Medical History: Yes Neurological History: No Pertinent History ENT History: Cataracts Cardiac History: Hypertension Respiratory History: No Pertinent History Endocrine Medical History: No Pertinent History Musculoskelatal History: Degenerative Disk Disease, Osteoarthritis GI Medical History: No Pertinent History History: No Pertinent History Pyscho-Social History: No Pertinent History Reproductive Disorders: No Pertinent History Comment: LB FUSION ~6 YEARS AGO. - Female History Are you now?: No - Past Surgical History Past Surgical History: Yes Neuro Surgical History: No Pertinent History Cardiac History: No Pertinent History Respiratory Surgery: No Pertinent History GI Surgical History: No Pertinent History Genitourinary Surgical Hx: No Pertinent History Musculskeletal Surgical Hx: No Pertinent History Female Surgical History: No Pertinent History Other Surgical History: BACK SURGERY--LUMBAR - Social History Smoking Status: Never smoker Exposure to second hand smoke: No Alcohol: None Drug Use: none Significant Family History: heart disease - Physical Exam Vital Signs: Vital Signs - 24 hr Temp Pulse Resp BP Pulse Ox 06/05/17 07:32 98.1 F 80 18 130/62 97 06/05/17 04:00 98.4 F 67 20 132/58 98 06/04/17 22:46 99.4 F 104 H 18 130/61 06/04/17 22:29 113 H 18 141/66 95 06/04/17 21:43 93 L 06/04/17 21:43 115 H 18 152/60 95 06/04/17 20:58 107 H 18 159/67 96 06/04/17 20:07 102.4 F 105 H 18 159/67 95 06/04/17 20:06 95 06/04/17 19:30 102.4 F 116 H 18 172/86 93 L General Appearance: no apparent distress, alert Neurologic Exam: alert, cooperative, normal mood/affect, nml cerebellar function , nml station & gait, sensation nml, No motor deficits Eye Exam: PERRL/EOMI, eyes nml inspection, No scleral icterus Ears, Nose, Throat Exam: normal ENT inspection, pharynx normal, moist mucous membranes Neck Exam: normal inspection, non-tender, supple, full range of motion Respiratory Exam: normal breath sounds, lungs clear, No respiratory distress Cardiovascular Exam: regular rate/rhythm, normal heart sounds, normal peripheral pulses Gastrointestinal/Abdomen Exam: soft, normal bowel sounds, No tenderness, No mass Back Exam: normal inspection, normal range of motion, No CVA tenderness, No vertebral tenderness Extremity Exam: normal inspection, normal range of motion, pelvis stable Skin Exam: normal color, warm, dry, No rash Lymphatic Exam: No adenopathy Results - Labs Lab/Micro Results: Lab Results-Last 24 Hours 06/04/17 06/05/17 06/05/17 Range/Units 22:55 05:40 05:40 WBC 7.9 (4.0-10.5) K/mm3 RBC 3.60 L (4.1-5.4) M/mm3 Hgb 11.5 L (12.0-16.0) gm/dl Hct 34.6 L (35-47) % MCV 96.1 (78-100) fl MCH 31.9 (26-32) pg MCHC 33.2 (32-36) g/dl RDW 13.9 (11.5-14.0) % Plt Count 190 (150-450) K/mm3 MPV 10.5 H (6-9.5) fl Gran % 77.4 H (36.0-66.0) % Lymphocytes % 13.1 L (24.0-44.0) % Monocytes % 9.3 (0.0-12.0) % Eosinophils % 0.1 (0.00-5.0) % Basophils % 0.1 (0.0-0.4) % Basophils # 0.01 (0-0.4) Sodium 137 (136-145) mEq/L Potassium 3.5 (3.5-5.1) mEq/L Chloride 105 (98-107) mEq/L Carbon Dioxide 24.2 (21-32) mEq/L Anion Gap 11.1 (5-15) MEQ/L BUN 7 L (9-20) mg/dL Creatinine 0.75 (0.55-1.30) mg/dl Estimated GFR > 60 ML/MIN Glucose 105 (70-110) MG/DL Calcium 8.0 L (8.5-10.1) mg/dL Troponin I 0.053 (0.000-0.056) ng/ml Assessment/Plan (1) Pneumonia Current Visit: Yes Status: Acute Qualifiers: Laterality: left Lung location: lower lobe of lung Assessment & Plan: on rocephin and azithromycin improving Code(s): J18.9 - PNEUMONIA, UNSPECIFIED ORGANISM (2) Bloody diarrhea Current Visit: Yes Status: Acute Assessment & Plan: checking stool culture / c. diff continue slow iv fluids advance diet as tolerated Code(s): R19.7 - DIARRHEA, UNSPECIFIED (3) Gastroenteritis Current Visit: Yes Status: Acute Code(s): K52.9 - NONINFECTIVE GASTROENTERITIS AND COLITIS, UNSPECIFIED (4) Mild dementia Current Visit: Yes Status: Chronic Code(s): F03.90 - UNSPECIFIED DEMENTIA WITHOUT BEHAVIORAL DISTURBANCE (5) Essential hypertension Current Visit: Yes Status: Chronic Code(s): I10 - ESSENTIAL (PRIMARY) HYPERTENSION (6) GERD (gastroesophageal reflux disease) Current Visit: Yes Status: Chronic Code(s): K21.9 - GASTRO-ESOPHAGEAL REFLUX DISEASE WITHOUT ESOPHAGITIS
[2017-06-05] MEDS ORDERED: Zithromax 500 MG/ 250 ML NaCl Premix 500 MG/250 ML IVPB IV SCH ×3 (10:00→22:00)
[2017-06-05] MEDS: Zestril 10 MG PO SCH (10:22)
[2017-06-05] MEDS: Protonix 40MG Tablet PO SCH (10:22)
[2017-06-05] MEDS ORDERED: ROCEPHIN 1 Gm-D5w 50 ml Bag** 1 G/50 ML IVPB IV SCH (22:00)
[2017-06-06 05:40] LABS: BASOPHIL % 0.2 % (0.0-0.4); Basophil (Absolute #) 0.01 (0-0.4); Eosinophil % 0.6 % (0.00-5.0); Eosinophil (Absolute #) 0.04 (0-0.5); Granulocyte Absolute (ANC) 4.27 (1.4-6.9); Granulocytes % 65.2 % (36.0-66.0); Hematocrit 37.9 % (35-47); Hemoglobin 12.3 gm/dl (12.0-16.0); Lymphocyte (Absolute #) 1.56 (1.0-4.6); Lymphocytes % 23.9 % (24.0-44.0); Mean Cell Volume 96.4 fl (78-100); Mean Corpuscular Hgb Concent. 32.5 g/dl (32-36); Mean Platelet Volume 10.4 fl (6-9.5); Monocyte (Absolute #) 0.66 (0.0-1.3); Monocytes % 10.1 % (0.0-12.0); Platelet Count 180 K/mm3 (150-450); Red Blood Count 3.93 M/mm3 (4.1-5.4); Red Cell Distribution Width 14.1 % (11.5-14.0); White Blood Count 6.5 K/mm3 (4.0-10.5)
[2017-06-06 05:50] LABS: Mean Corpuscular Hemoglobin 31.2 pg (26-32)
[2017-06-06 05:55] LABS: ANION GAP 10.3 MEQ/L (5-15); BLOOD UREA NITROGEN 6 mg/dL (9-20); CHLORIDE 106 mEq/L (98-107); Carbon Dioxide 26.5 mEq/L (21-32); Creatinine 1 0.77 mg/dl (0.55-1.30); EST GLOMERULAR FILTRATION RATE > 60 ML/MIN; Glucose 89 MG/DL (70-110); Potassium 3.3 mEq/L (3.5-5.1); SODIUM 140 mEq/L (136-145)
--- NOTE | 2017-06-06 07:55 | PCM.NOTE ---
Date and Time: 06/06/17 0752 Subjective Assessment: some mild cramping across the low abdomen no vomiting tolerating po diarrhea has slowed down significantly but every time she urinates she passes a very small amount of bloody mucous stool. She is not coughing. Objective Exam General Appearance: no apparent distress, alert Neurologic Exam: alert, cooperative, normal mood/affect, nml cerebellar function , sensation nml, No motor deficits Skin Exam: normal color, warm, dry Eye Exam: PERRL, EOMI, eyes nml inspection Ears, Nose, Throat Exam: normal ENT inspection, pharynx normal, moist mucous membranes Neck Exam: normal inspection, non-tender, supple, full range of motion Respiratory Exam: normal breath sounds, lungs clear, No respiratory distress Cardiovascular Exam: regular rate/rhythm, normal heart sounds Gastrointestinal/Abdomen Exam: soft, normal bowel sounds, tenderness (mild worst in left lower quadrant), No mass Extremity Exam: normal inspection, normal range of motion Back Exam: normal inspection, normal range of motion, No CVA tenderness, No vertebral tenderness Pelvic Exam: deferred Rectal Exam: deferred OBJECTIVE DATA Vital Signs: Vital Signs - 24 hr Temp Pulse Resp BP Pulse Ox 06/06/17 07:17 98.2 F 72 18 144/70 97 06/06/17 04:00 98.7 F 67 18 156/69 95 06/06/17 00:00 18 06/05/17 20:00 98.3 F 63 18 163/74 96 06/05/17 15:55 18 06/05/17 11:29 98.2 F 63 18 153/67 96 Pain Assessment - Last Documented Pain Intensity 3 Pain Scale Used 0-10 Pain Scale Intake and Output: Intake & Output 06/03/17 06/04/17 06/05/17 06/06/17 11:59 11:59 11:59 11:59 Intake Total 1185 2637 Output Total 1100 1100 Balance 85 1537 Weight 58.4 kg 58.4 kg Lab Results: Lab Results-Last 24 Hours 06/06/17 06/06/17 Range/Units 05:22 05:31 WBC 6.5 (4.0-10.5) K/mm3 RBC 3.93 L (4.1-5.4) M/mm3 Hgb 12.3 (12.0-16.0) gm/dl Hct 37.9 (35-47) % MCV 96.4 (78-100) fl MCH 31.2 (26-32) pg MCHC 32.5 (32-36) g/dl RDW 14.1 H (11.5-14.0) % Plt Count 180 (150-450) K/mm3 MPV 10.4 H (6-9.5) fl Gran % 65.2 (36.0-66.0) % Lymphocytes % 23.9 L (24.0-44.0) % Monocytes % 10.1 (0.0-12.0) % Eosinophils % 0.6 (0.00-5.0) % Basophils % 0.2 (0.0-0.4) % Basophils # 0.01 (0-0.4) Lactic Acid 0.6 (0.4-2.0) Multi-Disciplinary Progress Notes: Multi-Disciplinary Progress Notes 06/06/17 01:37 Respiratory Note by Bhavesh Myers PLACED AN ORDER FOR A LACTIC ACID TEST TO BE DRAWN W/ A.M. LABS SINCE THE REPEAT WAS CANCELLED. Initialized on 06/06/17 01:37 - END OF NOTE Assessment/Plan (1) Bloody diarrhea Current Visit: Yes Status: Acute Assessment & Plan: improved significantly They have not been able to collect a stool sample due to sampling difficulty would really like to check for shigella with stool culture will attempt and monitor a little longer with the bloody stool if improving possibly home this afternoon with outpatient f/u for colonoscopy consideration. Code(s): R19.7 - DIARRHEA, UNSPECIFIED (2) Colitis Current Visit: Yes Status: Acute Code(s): K52.9 - NONINFECTIVE GASTROENTERITIS AND COLITIS, UNSPECIFIED (3) Pneumonia Current Visit: Yes Status: Acute Qualifiers: Laterality: left Lung location: lower lobe of lung Assessment & Plan: on rocephin and azithromycin Code(s): J18.9 - PNEUMONIA, UNSPECIFIED ORGANISM (4) Gastroenteritis Current Visit: Yes Status: Acute Code(s): K52.9 - NONINFECTIVE GASTROENTERITIS AND COLITIS, UNSPECIFIED (5) Mild dementia Current Visit: Yes Status: Chronic Code(s): F03.90 - UNSPECIFIED DEMENTIA WITHOUT BEHAVIORAL DISTURBANCE (6) Essential hypertension Current Visit: Yes Status: Chronic Code(s): I10 - ESSENTIAL (PRIMARY) HYPERTENSION (7) GERD (gastroesophageal reflux disease) Current Visit: Yes Status: Chronic Code(s): K21.9 - GASTRO-ESOPHAGEAL REFLUX DISEASE WITHOUT ESOPHAGITIS
[2017-06-06] MEDS: Pepcid 20 MG VIAL IV SCH (09:19)
[2017-06-06] MEDS: Protonix 40MG Tablet PO SCH (09:19)
[2017-06-06] MEDS: Zestril 10 MG PO SCH (09:19)
[2017-06-06] MEDS: Sodium Chloride 0.9% 1000 ML 1,000 ML IV SCH (11:32)
[2017-06-06 16:25] VITALS: BP 158/67; PULSE 66; O2SAT 96
[2017-06-06] MEDS ORDERED: Zithromax 250 MG TABLET PO ONE (17:54)
--- NOTE | 2017-06-06 17:57 | PCM.DS ---
Discharge Summary Date of Admission: 06/04/17 22:15 Date of Discharge: 06/06/2017 Admitting Physician: CIRO SY Primary Care Provider: CIRO SY Allergies Allergies No Known Drug Allergies Allergy (Verified 12/25/16 13:38) Hospital Summary - Hospital Course Hospital Course: She presented with fever and chill, vomiting and bloody diarrhea. She was found to have evidence of pneumonia and was treated with ceftriaxone and azithromycin and zofran with fluid bolus the vomiting subsided but was having some small bloody mucous stools but was not able to collect stool sample after missing multiple times. This stopped on and she did not have any further bleeding and the abdominal pain was significantly improved. She was not having any further bleeding and her vital signs were stable and she was tolerating po well. There was no significant change in her hemoglobin and she was discharged to complete the coarse of azithromycin at home. - Vitals & Intake/Output Vital Signs: Vital Signs Temperature 98 F 06/06/17 16:24 Pulse Rate 66 06/06/17 16:24 Respiratory Rate 18 06/06/17 16:24 Blood Pressure 158/67 06/06/17 16:24 O2 Sat by Pulse Oximetry 96 06/06/17 16:24 Intake & Output: Intake & Output 06/04/17 06/05/17 06/06/17 06/07/17 11:59 11:59 11:59 11:59 Intake Total 1185 2637 879 Output Total 1100 1300 550 Balance 85 1337 329 Weight 58.4 kg 58.4 kg - Lab Result Diagrams: 06/06/17 05:22 06/06/17 05:22 Lab Results-Last 24 Hrs: Lab Results-Last 24 Hours 06/06/17 06/06/17 06/06/17 Range/Units 05:22 05:22 05:31 WBC 6.5 (4.0-10.5) K/mm3 RBC 3.93 L (4.1-5.4) M/mm3 Hgb 12.3 (12.0-16.0) gm/dl Hct 37.9 (35-47) % MCV 96.4 (78-100) fl MCH 31.2 (26-32) pg MCHC 32.5 (32-36) g/dl RDW 14.1 H (11.5-14.0) % Plt Count 180 (150-450) K/mm3 MPV 10.4 H (6-9.5) fl Gran % 65.2 (36.0-66.0) % Lymphocytes % 23.9 L (24.0-44.0) % Monocytes % 10.1 (0.0-12.0) % Eosinophils % 0.6 (0.00-5.0) % Basophils % 0.2 (0.0-0.4) % Basophils # 0.01 (0-0.4) Sodium 140 (136-145) mEq/L Potassium 3.3 L (3.5-5.1) mEq/L Chloride 106 (98-107) mEq/L Carbon Dioxide 26.5 (21-32) mEq/L Anion Gap 10.3 (5-15) MEQ/L BUN 6 L (9-20) mg/dL Creatinine 0.77 (0.55-1.30) mg/dl Estimated GFR > 60 ML/MIN Glucose 89 (70-110) MG/DL Lactic Acid 0.6 (0.4-2.0) Calcium 8.0 L (8.5-10.1) mg/dL Discharge Exam General Appearance: no apparent distress, alert Neurologic Exam: alert, oriented x 3, cooperative, normal mood/affect, nml cerebellar function, sensation nml, No motor deficits Skin Exam: normal color, warm, dry Eye Exam: PERRL, EOMI, eyes nml inspection Ears, Nose, Throat Exam: normal ENT inspection, pharynx normal, moist mucous membranes Neck Exam: normal inspection, non-tender, supple, full range of motion Respiratory Exam: normal breath sounds, lungs clear, No respiratory distress Cardiovascular Exam: regular rate/rhythm, normal heart sounds Gastrointestinal/Abdomen Exam: soft, No tenderness, No mass Extremity Exam: normal inspection, normal range of motion Back Exam: normal inspection, normal range of motion, No CVA tenderness, No vertebral tenderness Pelvic Exam: deferred Rectal Exam: deferred Final Diagnosis/Problem List - Final Discharge Diagnosis/Problem (1) Pneumonia Status: Acute (2) Bloody diarrhea Status: Acute (3) Colitis Status: Acute Assessment & Plan: with hematochezia resolved (4) Gastroenteritis Status: Acute (5) Mild dementia Status: Chronic (6) Essential hypertension Status: Chronic (7) GERD (gastroesophageal reflux disease) Status: Chronic - Discharge Discharge Date: 06/06/17 Disposition: Home, Self-Care Condition: Good Prescriptions: New Azithromycin 250 mg [Zithromax 250 MG TABLET] 250 mg PO DAILY 2 Days # 2 tablet Ondansetron ODT 4 MG [Zofran Odt 4 mg] 4 mg PO Q6H PRN PRN #10 tab.rapdis PRN Reason: Nausea Continue Omeprazole 20 MG [Prilosec 20 mg] 20 mg PO DAILY Lisinopril 10 mg [Zestril 10 MG] 10 mg PO DAILY Discontinued Oseltamivir Phosphate 75 mg PO DAILY Instructions: Pneumonia, Adult (DC) Follow up with: CIRO SY [Primary Care Provider] - 1 Week Forms: Discharge Instructions
[2017-06-06] MEDS ORDERED: Zithromax 250 MG TABLET ONE (18:05)
== END 2017-06-06 18:30 | disposition home or self-care (01) | DRG 195 ==
LOC: ED 19:21 → MED SURG 22:15
PROVIDERS: ADMIT Family Medicine; ATTEND Family Medicine
DX: R11.2 Nausea with vomiting, unspecified (principal); R50.81 Fever presenting with conditions classified elsewhere; J18.9 Pneumonia, unspecified organism; R19.7 Diarrhea, unspecified; K52.9 Noninfective gastroenteritis and colitis, unspecified; F03.90 Unspecified dementia, unspecified severity, without behavioral disturbance, psychotic disturbance, mood disturbance, and anxiety; I10 Essential (primary) hypertension; M19.90 Unspecified osteoarthritis, unspecified site; K21.9 Gastro-esophageal reflux disease without esophagitis; Z79.899 Other long term (current) drug therapy
CPT/HCPCS: 36000; 36415; 51702; 71045; 80048; 80053; 81000; 82270; 83605; 84484; 85025; 85610; 85730; 87040; 87045; 87046; 87070; 87086; 87335; 87430; 87631; 93005; 93041; 96360; 96361; 96366; 96367; 96374; 99285; J0456; J0696; J2405; A9270-GY

== ENCOUNTER 2019-12-16 14:05 | Observation (INO) | payer MEDICARE, OTHER ==
[2019-12-16 15:07] LABS: Absolute Neutrophil Ct (ANC) 4.28 (1.4-6.9); BASOPHIL % 0.2 % (0.0-0.4); Basophil (Absolute #) 0.01 (0-0.4); Eosinophil % 1.1 % (0.00-5.0); Eosinophil (Absolute #) 0.07 (0-0.5); Hematocrit 35.2 % (35-47); Hemoglobin 11.6 gm/dl (12.0-16.0); Lymphocyte (Absolute #) 1.27 (1.0-4.6); Lymphocytes % 20.4 % (24.0-44.0); Mean Cell Volume 97.2 fl (78-100); Mean Platelet Volume 9.9 fl (7.5-11.0); Monocyte (Absolute #) 0.61 (0.0-1.3); Monocytes % 9.8 % (0.0-12.0); Neutrophil % 68.5 % (36.0-66.0); Platelet Count 258 K/mm3 (150-450); Red Blood Count 3.62 M/mm3 (4.1-5.4); Red Cell Distribution Width 13.3 % (11.5-14.0); White Blood Count 6.2 K/mm3 (4.0-10.5)
[2019-12-16 15:28] LABS: ALBUMIN 3.5 g/dL (3.5-5.0); ALKALINE PHOSPHATASE 68 U/L (38-126); ANION GAP 8.9 MEQ/L (5-15); BLOOD UREA NITROGEN 14 mg/dL (7-17); CHLORIDE 95 mmol/L (98-107); Calcium 8.9 mg/dL (8.4-10.2); Carbon Dioxide 27 mmol/L (22-30); Creatinine 1 0.75 mg/dL (0.52-1.04); EST GLOMERULAR FILTRATION RATE > 60.0 ML/MIN; Glucose 128 mg/dL (74-106); LIPASE 134 U/L (23-300); MAGNESIUM 2.1 mg/dL (1.6-2.3); NT PRO BNP 307 pg/mL (0-1800); Potassium 3.5 mmol/L (3.5-5.1); SGOT/AST 22 U/L (14-36); SGPT/ALT 11 U/L (0-35); SODIUM 127 mmol/L (137-145); Total Protein 6.7 g/dL (6.3-8.2)
--- NOTE | 2019-12-16 15:59 | ERPHSYRPT ---
- History of Present Illness Time Seen by Provider: 12/16/19 14:20 Source: patient Exam Limitations: other Patient Subjective Stated Complaint: N&V, diarrhea, generalized weakness for the past couple of days Triage Nursing Assessment: Pt brought in by EMS, bradycardic, hypertensive, denies pain at this time, edema to veronica lower ext, pulses normal, denies pain to abdomen with palpatation, skin normal, cool and dry Physician History: Patient is an 84-year-old female presents to our ED via EMS for evaluation of nausea vomiting and diarrhea. Family reports that patient was found unresponsive. They report issues regarding control of patient's blood pressure. Patient has history of dementia and is a poor historian. The details surrounding situation prior to arrival is sketchy. Patient denies pain at this time. No chest pain or shortness of breath. No nausea or vomiting at this time. Patient voices no other complaints concerns at this time. Timing/Duration: today Severity: moderate Modifying Factors: Improves With: nothing Associated Symptoms: nausea, vomiting, syncope, No abdominal pain, No shortness of breath, No heartburn, No diaphoresis, No cough, No chills, No chest pain, No fever, No headaches, No loss of appetite, No malaise Allergies/Adverse Reactions: No Known Drug Allergies Allergy (Verified 12/16/19 14:18) Home Medications: No Reportable Medications [No Reported Medications] 12/16/19 [History] Hx Tetanus, Diphtheria Vaccination/Date Given: No Hx Influenza Vaccination/Date Given: Yes (2015) Hx Pneumococcal Vaccination/Date Given: No Travel Risk - International Travel Have you traveled outside of the country in past 3 weeks: No - Coronavirus Screening Are you exhibiting any of the following symptoms?: Yes Symptoms: Vomiting/Diarrhea Close contact with a COVID-19 positive Pt in past 14-21 Days: No - Review of Systems All Other Systems: Unable due to dementia - Past Medical History Pertinent Past Medical History: Yes Neurological History: Migraines ENT History: Cataracts Cardiac History: Hypertension Respiratory History: No Pertinent History Endocrine Medical History: No Pertinent History Musculoskeletal History: Osteoarthritis GI Medical History: No Pertinent History History: No Pertinent History Psycho-Social History: No Pertinent History Female Reproductive Disorders: No Pertinent History Other Medical History: Pt had back surgery, possible fusion, 6-7 years ago. - Past Surgical History Past Surgical History: Yes Neuro Surgical History: No Pertinent History Cardiac: No Pertinent History Respiratory: No Pertinent History Gastrointestinal: No Pertinent History Genitourinary: No Pertinent History Musculoskeletal: No Pertinent History Female Surgical History: No Pertinent History Other Surgical History: BACK SURGERY--LUMBAR - Social History Smoking Status: Never smoker Exposure to second hand smoke: No Drug Use: none Patient Lives Alone: No Significant Family History: heart disease - Nursing Vital Signs Nursing Vital Signs: Initial Vital Signs Temperature 97.7 F 12/16/19 14:07 Pulse Rate 50 L 12/16/19 14:07 Respiratory Rate 18 12/16/19 14:07 Blood Pressure 179/107 12/16/19 14:07 O2 Sat by Pulse Oximetry 95 12/16/19 14:07 Pain Scale Pain Intensity 0 - Physical Exam General Appearance: no apparent distress, alert Eye Exam: PERRL/EOMI, eyes nml inspection Ears, Nose, Throat Exam: normal ENT inspection, TMs normal, pharynx normal, moist mucous membranes Neck Exam: normal inspection, non-tender, supple, full range of motion Respiratory Exam: normal breath sounds, lungs clear, No respiratory distress Cardiovascular Exam: regular rate/rhythm, normal heart sounds, normal peripheral pulses Gastrointestinal/Abdomen Exam: soft, normal bowel sounds, No tenderness, No mass Back Exam: normal inspection, normal range of motion, No CVA tenderness, No vertebral tenderness Extremity Exam: normal inspection, normal range of motion, pelvis stable Neurologic Exam: alert, oriented x 3, cooperative, normal mood/affect, nml cerebellar function, sensation nml, No motor deficits Skin Exam: normal color, warm, dry, No rash Lymphatic Exam: No adenopathy SpO2 Interpretation: normal SpO2: 98 O2 Delivery: Room Air - Course Nursing assessment & vital signs reviewed: Yes - CT Exams Head CT Interpretation: Tele-radiologist Report (Senile brain, hyperostosis frontalis, chronic sinusitis old lacunar infarct) Ordered Tests: Active Orders 24 hr Category Date Time Status Greaser Operator STAT Care 12/16/19 14:20 Active EKG-ER Only STAT Care 12/16/19 14:19 Active IV Insertion STAT Care 12/16/19 14:19 Active Pulse Oximetry (ED) STAT Care 12/16/19 14:19 Active HEAD WITHOUT CONTRAST [CT] Stat Exams 12/16/19 15:50 Completed CBC W DIFF Stat Lab 12/16/19 14:30 Completed CMP Stat Lab 12/16/19 14:30 Completed LIPASE Stat Lab 12/16/19 14:30 Completed MAGNESIUM Stat Lab 12/16/19 14:30 Completed NT PRO BNP Stat Lab 12/16/19 14:30 Completed TROPONIN Q3H Lab 12/16/19 14:30 Completed TROPONIN Q3H Lab 12/16/19 17:46 Completed TROPONIN Q3H Lab 12/16/19 20:30 Ordered TROPONIN Q3H Lab 12/16/19 23:30 Ordered TROPONIN Q3H Lab 12/17/19 02:30 Ordered UA W/RFX UR CULTURE Stat Lab 12/16/19 Completed Lab/Rad Data: Laboratory Result Diagrams 12/16/19 14:30 12/16/19 14:30 Laboratory Results 12/16/19 12/16/19 12/16/19 Range/Units Unknown 18:25 17:46 WBC (4.0-10.5) K/mm3 RBC (4.1-5.4) M/mm3 Hgb (12.0-16.0) gm/dl Hct (35-47) % MCV (78-100) fl MCH (26-32) pg MCHC (32-36) g/dl RDW (11.5-14.0) % Plt Count (150-450) K/mm3 MPV (7.5-11.0) fl Gran % (36.0-66.0) % Eos # (Auto) (0-0.5) Absolute Lymphs (auto) (1.0-4.6) Absolute Monos (auto) (0.0-1.3) Lymphocytes % (24.0-44.0) % Monocytes % (0.0-12.0) % Eosinophils % (0.00-5.0) % Basophils % (0.0-0.4) % Absolute Granulocytes (1.4-6.9) Basophils # (0-0.4) Sodium (137-145) mmol/L Potassium (3.5-5.1) mmol/L Chloride (98-107) mmol/L Carbon Dioxide (22-30) mmol/L Anion Gap (5-15) MEQ/L BUN (7-17) mg/dL Creatinine (0.52-1.04) mg/dL Estimated GFR ML/MIN Glucose (74-106) mg/dL Calcium (8.4-10.2) mg/dL Magnesium (1.6-2.3) mg/dL Total Bilirubin (0.2-1.3) mg/dL AST (14-36) U/L ALT (0-35) U/L Alkaline Phosphatase (38-126) U/L Troponin I < 0.012 (0.000-0.034) ng/mL NT-Pro-B Natriuret Pep (0-1800) pg/mL Serum Total Protein (6.3-8.2) g/dL Albumin (3.5-5.0) g/dL Lipase (23-300) U/L Urine Color STRAW (YELLOW) Urine Appearance CLEAR (CLEAR) Urine pH 7.0 (5-6) Ur Specific [place] 1.003 (1.005-1.025) Urine Protein NEGATIVE (Negative) Urine Ketones NEGATIVE (NEGATIVE) Urine Blood LARGE (0-5) Lee/ul Urine Nitrite NEGATIVE (NEGATIVE) Urine Bilirubin NEGATIVE (NEGATIVE) Urine Urobilinogen NEGATIVE (0-1) mg/dL Ur Leukocyte Esterase TRACE (NEGATIVE) Urine WBC (Auto) 0-2 (0-5) /HPF Urine RBC (Auto) 0-2 (0-2) /HPF U Hyaline Cast (Auto) 0-2 (0-2) /LPF U Epithel Cells (Auto) NONE (FEW) /HPF Urine Bacteria (Auto) NONE (NEGATIVE) /HPF Urine Mucus (Auto) SLIGHT (NEGATIVE) /HPF Urine Culture Reflexed NO (NO) Urine Glucose NEGATIVE (NEGATIVE) mg/dL SARS-CoV-2 (PCR) NEGATIVE (NEGATIVE) 12/16/19 12/16/19 12/16/19 Range/Units 14:30 14:30 14:30 WBC 6.2 (4.0-10.5) K/mm3 RBC 3.62 L (4.1-5.4) M/mm3 Hgb 11.6 L (12.0-16.0) gm/dl Hct 35.2 (35-47) % MCV 97.2 (78-100) fl MCH 32.0 (26-32) pg MCHC 33.0 (32-36) g/dl RDW 13.3 (11.5-14.0) % Plt Count 258 (150-450) K/mm3 MPV 9.9 (7.5-11.0) fl Gran % 68.5 H (36.0-66.0) % Eos # (Auto) 0.07 (0-0.5) Absolute Lymphs (auto) 1.27 (1.0-4.6) Absolute Monos (auto) 0.61 (0.0-1.3) Lymphocytes % 20.4 L (24.0-44.0) % Monocytes % 9.8 (0.0-12.0) % Eosinophils % 1.1 (0.00-5.0) % Basophils % 0.2 (0.0-0.4) % Absolute Granulocytes 4.28 (1.4-6.9) Basophils # 0.01 (0-0.4) Sodium 127 L (137-145) mmol/L Potassium 3.5 (3.5-5.1) mmol/L Chloride 95 L (98-107) mmol/L Carbon Dioxide 27 (22-30) mmol/L Anion Gap 8.9 (5-15) MEQ/L BUN 14 (7-17) mg/dL Creatinine 0.75 (0.52-1.04) mg/dL Estimated GFR > 60.0 ML/MIN Glucose 128 H (74-106) mg/dL Calcium 8.9 (8.4-10.2) mg/dL Magnesium 2.1 (1.6-2.3) mg/dL Total Bilirubin 0.40 (0.2-1.3) mg/dL AST 22 (14-36) U/L ALT 11 (0-35) U/L Alkaline Phosphatase 68 (38-126) U/L Troponin I < 0.012 (0.000-0.034) ng/mL NT-Pro-B Natriuret Pep 307 (0-1800) pg/mL Serum Total Protein 6.7 (6.3-8.2) g/dL Albumin 3.5 (3.5-5.0) g/dL Lipase 134 (23-300) U/L Urine Color (YELLOW) Urine Appearance (CLEAR) Urine pH (5-6) Ur Specific [place] (1.005-1.025) Urine Protein (Negative) Urine Ketones (NEGATIVE) Urine Blood (0-5) Lee/ul Urine Nitrite (NEGATIVE) Urine Bilirubin (NEGATIVE) Urine Urobilinogen (0-1) mg/dL Ur Leukocyte Esterase (NEGATIVE) Urine WBC (Auto) (0-5) /HPF Urine RBC (Auto) (0-2) /HPF U Hyaline Cast (Auto) (0-2) /LPF U Epithel Cells (Auto) (FEW) /HPF Urine Bacteria (Auto) (NEGATIVE) /HPF Urine Mucus (Auto) (NEGATIVE) /HPF Urine Culture Reflexed (NO) Urine Glucose (NEGATIVE) mg/dL SARS-CoV-2 (PCR) (NEGATIVE) - Progress Progress: improved Progress Note: 12/16/19 19:38 Patient reassessed. Symptoms improved. Case discussed with Dr. Kohler who accepts admission to observation. COVID negative. Order for stool pathogen panel entered however patient has not had a bowel movement in our ED. Discussed with : Bonifacio Will see patient in: hospital (observation) Counseled pt/family regarding: lab results, diagnosis, rad results - Departure Departure Disposition: Observation Clinical Impression: Syncope, Nausea & vomiting, Diarrhea, Hyponatremia, Chronic sinusitis, Hyperostosis frontalis interna Condition: Stable Critical Care Time: No Referrals: SOO KOHLER [Primary Care Provider] -
--- NOTE | 2019-12-16 16:53 | XRAY ---
Exam: CT of the head without IV contrast from 12/16/2019. CTDI: 53.92 mGy Comparison: MRI of the brain without IV contrast from 05/09/2017. Indication: Syncope. Technique: Non-IV contrast axial images were obtained through the brain. Reconstructed coronal and sagittal images were created and reviewed. Findings: The ventricles are within normal limits of size for age. No focal mass effect or midline shift is seen. Subtle bilateral periventricular and subcortical white matter changes are seen consistent with chronic small vessel ischemic disease. There is a 5.5 mm low-attenuation density just to the left of the anterior aspect of the third ventricle on axial image #26 which may represent a lacunar infarct. This may be seen on the prior MRI study, but is better seen on today's CT study than that noted on 05/09/2017. No peripheral low attenuation cortical infarct is seen. The cortical sulci and basilar cisterns appear unremarkable. Hyperostosis frontalis interna is again seen. The visualized portion of the left maxillary sinus is again noted be small with some chronic partial opacification suggesting findings of chronic sinusitis. I also note some mild mucoperiosteal thickening within the anterior left ethmoid sinus representing no change. However, there is some apparent new focal parenchymal density at the posterior lateral aspect of the right ethmoid sinus, and to a lesser extent, the posterior aspect of the left ethmoid sinus. This could be due to worsening chronic sinus disease, or acute ethmoid sinus disease. I see no air-fluid levels. The mastoids are clear without effusion. The middle ear cavities appear grossly unremarkable. Impression: 1. I see no acute intracranial bleed, focal mass effect, or midline shift. 2. I again see mild degenerative periventricular microvascular ischemia. There may be a small lacunar infarct just to the left of the anterior aspect of the third ventricle. 3. Paranasal sinus disease, as described above. 4. Hyperostosis frontalis interna.
[2019-12-16 17:55] LABS: Appearance CLEAR (CLEAR); Bilirubin NEGATIVE (NEGATIVE); Blood LARGE Ery/ul (0-5); Glucose NEGATIVE (NEGATIVE); Hyaline Casts 0-2 /LPF (0-2); Ketones NEGATIVE (NEGATIVE); Leukocyte Esterase TRACE (NEGATIVE); Mucus SLIGHT /HPF (NEGATIVE); Nitrite NEGATIVE (NEGATIVE); Protein,Urine Dip NEGATIVE (Negative); RBC 0-2 /HPF (0-2); Specific Gravity 1.003 (1.005-1.025); Urobilinogen NEGATIVE mg/dL (0-1); WBC 0-2 /HPF (0-5)
[2019-12-16] MEDS ORDERED: MORPHINE SULFATE 2 MG INJ IV PRN (20:54)
[2019-12-16] MEDS: Sodium Chloride 0.9% 1000 ML 1,000 ML IV SCH (22:22)
[2019-12-17 06:56] LABS: Absolute Neutrophil Ct (ANC) 4.92 (1.4-6.9); BASOPHIL % 0.1 % (0.0-0.4); Basophil (Absolute #) 0.01 (0-0.4); Eosinophil % 0.4 % (0.00-5.0); Eosinophil (Absolute #) 0.03 (0-0.5); Hematocrit 40.4 % (35-47); Hemoglobin 12.9 gm/dl (12.0-16.0); Lymphocyte (Absolute #) 1.57 (1.0-4.6); Lymphocytes % 21.6 % (24.0-44.0); Mean Corpuscular Hemoglobin 31.6 pg (26-32); Mean Corpuscular Hgb Concent. 31.9 g/dl (32-36); Mean Platelet Volume 10.4 fl (7.5-11.0); Monocyte (Absolute #) 0.73 (0.0-1.3); Monocytes % 10.1 % (0.0-12.0); Neutrophil % 67.8 % (36.0-66.0); Platelet Count 272 K/mm3 (150-450); Red Blood Count 4.08 M/mm3 (4.1-5.4); Red Cell Distribution Width 13.7 % (11.5-14.0); White Blood Count 7.3 K/mm3 (4.0-10.5)
[2019-12-17 07:17] VITALS: BP 189/78; PULSE 85; O2SAT 95
[2019-12-17] MEDS: Sodium Chloride 0.9% 1000 ML 1,000 ML IV SCH (07:26)
[2019-12-17] MEDS ORDERED: APRESOLINE 20 MG/ML INJ IV PRN (07:36)
--- NOTE | 2019-12-17 09:00 | PCM.SSS ---
History of Present Illness - Chief Complaint Chief Complaint: syncope History of Present Illness: is a 84 year old female pt of mine from [facility] with mild dementia who came in to ER with syncope. She was found to have HR in the 30s and 40s overnight. I spoke with pt's [id number], who helps her with her meds at home (pt lives at home with ); pt has been quite weak for the past few weeks. Yesterday she was doing well, had gone to pain management for an injection. When daughter in law left her at home, pt's called about 10 minutes later and pt was unresponsive. Was a bit confused when she awoke. Pt had some nausea and diarrhea at home but Pt's BP has been elevated at home over the past few weeks, into the 170s/90s. She has never seen a reducing salon attendant. Apparently she got a low score on her MMSE four years ago with Dr. Keena Cosme. Discussed with Dr. Luna who recommended calling Dr. Thrasher for pacemaker placement and transfer. I am awaiting a call back. Family agrees with transfer and pacemaker. - Review of Systems Neurological: Other (syncope) All Other Systems: Unable due to dementia (per [id number], D yesterday, back pain, decreased appetite, fatigue) Medications & Allergies Home Medications: Home Medication List Lisinopril 5 mg [Zestril 5 MG] 2.5 mg PO BID 12/17/19 [History Confirmed 12/17/19] Allergies/Adverse Reactions: Allergies Allergy/AdvReac Type Severity Reaction Status Date / Time No Known Drug Allergies Allergy Verified 12/16/19 14:18 - Past Medical History Past Medical History: Yes Neurological History: Migraines ENT History: Cataracts Cardiac History: Hypertension Respiratory History: No Pertinent History Endocrine Medical History: No Pertinent History Musculoskelatal History: Osteoarthritis GI Medical History: No Pertinent History History: No Pertinent History Pyscho-Social History: No Pertinent History Reproductive Disorders: No Pertinent History Comment: Pt had back surgery, possible fusion, 6-7 years ago. - Female History Are you now?: No - Past Surgical History Past Surgical History: Yes Neuro Surgical History: No Pertinent History Cardiac History: No Pertinent History Respiratory Surgery: No Pertinent History GI Surgical History: No Pertinent History Genitourinary Surgical Hx: No Pertinent History Musculskeletal Surgical Hx: No Pertinent History Female Surgical History: No Pertinent History Other Surgical History: BACK SURGERY--LUMBAR - Social History Smoking Status: Never smoker Exposure to second hand smoke: No Alcohol: None Drug Use: none Significant Family History: heart disease - Physical Exam Vital Signs: Vital Signs - 24 hr Temp Pulse Resp BP Pulse Ox 12/17/19 07:45 14 12/17/19 07:16 98.6 F 85 13 189/78 95 12/17/19 04:00 99.1 F 39 L 16 182/75 96 12/16/19 23:48 98.2 F 40 L 16 115/60 97 12/16/19 23:47 18 12/16/19 21:02 99.3 F 41 L 18 198/81 96 12/16/19 21:00 98 12/16/19 20:00 68 16 176/62 95 12/16/19 19:39 98 12/16/19 16:58 67 18 191/76 98 12/16/19 16:17 67 18 191/76 98 12/16/19 15:40 57 L 194/102 98 12/16/19 15:39 98 12/16/19 14:07 97.7 F 50 L 18 179/107 95 General Appearance: no apparent distress, alert Neurologic Exam: cooperative, disoriented (year is "19....") Eye Exam: eyes nml inspection Ears, Nose, Throat Exam: moist mucous membranes Neck Exam: normal inspection, non-tender, No lymphadenopathy Respiratory Exam: normal breath sounds, lungs clear, No crackles/rales, No rhonchi, No wheezing Cardiovascular Exam: regular rate/rhythm, normal heart sounds, No murmur Gastrointestinal/Abdomen Exam: soft, normal bowel sounds, No tenderness, No distention, No mass, No guarding, No rebound Back Exam: normal inspection, No rash Extremity Exam: normal inspection, No pedal edema, No swelling Skin Exam: normal color, warm, dry, No rash Results - Labs Lab/Micro Results: Accuchecks Date 12/17/19 Time 07:30 Accucheck Value: 91 Lab Results-Last 24 Hours 12/16/19 12/16/19 12/16/19 Range/Units 00:00 14:30 14:30 WBC 6.2 (4.0-10.5) K/mm3 RBC 3.62 L (4.1-5.4) M/mm3 Hgb 11.6 L (12.0-16.0) gm/dl Hct 35.2 (35-47) % MCV 97.2 (78-100) fl MCH 32.0 (26-32) pg MCHC 33.0 (32-36) g/dl RDW 13.3 (11.5-14.0) % Plt Count 258 (150-450) K/mm3 MPV 9.9 (7.5-11.0) fl Gran % 68.5 H (36.0-66.0) % Eos # (Auto) 0.07 (0-0.5) Absolute Lymphs (auto) 1.27 (1.0-4.6) Absolute Monos (auto) 0.61 (0.0-1.3) Lymphocytes % 20.4 L (24.0-44.0) % Monocytes % 9.8 (0.0-12.0) % Eosinophils % 1.1 (0.00-5.0) % Basophils % 0.2 (0.0-0.4) % Absolute Granulocytes 4.28 (1.4-6.9) Basophils # 0.01 (0-0.4) Sodium 127 L (137-145) mmol/L Potassium 3.5 (3.5-5.1) mmol/L Chloride 95 L (98-107) mmol/L Carbon Dioxide 27 (22-30) mmol/L Anion Gap 8.9 (5-15) MEQ/L BUN 14 (7-17) mg/dL Creatinine 0.75 (0.52-1.04) mg/dL Estimated GFR > 60.0 ML/MIN Glucose 128 H (74-106) mg/dL POC Glucometer (74 to 106) mg/dL Calcium 8.9 (8.4-10.2) mg/dL Magnesium 2.1 (1.6-2.3) mg/dL Total Bilirubin 0.40 (0.2-1.3) mg/dL AST 22 (14-36) U/L ALT 11 (0-35) U/L Alkaline Phosphatase 68 (38-126) U/L Troponin I < 0.012 (0.000-0.034) ng/mL NT-Pro-B Natriuret Pep 307 (0-1800) pg/mL Serum Total Protein 6.7 (6.3-8.2) g/dL Albumin 3.5 (3.5-5.0) g/dL Lipase 134 (23-300) U/L Urine Color (YELLOW) Urine Appearance (CLEAR) Urine pH (5-6) Ur Specific [place] (1.005-1.025) Urine Protein (Negative) Urine Ketones (NEGATIVE) Urine Blood (0-5) Lee/ul Urine Nitrite (NEGATIVE) Urine Bilirubin (NEGATIVE) Urine Urobilinogen (0-1) mg/dL Ur Leukocyte Esterase (NEGATIVE) Urine WBC (Auto) (0-5) /HPF Urine RBC (Auto) (0-2) /HPF U Hyaline Cast (Auto) (0-2) /LPF U Epithel Cells (Auto) (FEW) /HPF Urine Bacteria (Auto) (NEGATIVE) /HPF Urine Mucus (Auto) (NEGATIVE) /HPF Urine Culture Reflexed (NO) Urine Glucose (NEGATIVE) mg/dL SARS-CoV-2 (PCR) (NEGATIVE) 12/16/19 12/16/19 12/16/19 Range/Units 14:30 17:46 18:25 WBC (4.0-10.5) K/mm3 RBC (4.1-5.4) M/mm3 Hgb (12.0-16.0) gm/dl Hct (35-47) % MCV (78-100) fl MCH (26-32) pg MCHC (32-36) g/dl RDW (11.5-14.0) % Plt Count (150-450) K/mm3 MPV (7.5-11.0) fl Gran % (36.0-66.0) % Eos # (Auto) (0-0.5) Absolute Lymphs (auto) (1.0-4.6) Absolute Monos (auto) (0.0-1.3) Lymphocytes % (24.0-44.0) % Monocytes % (0.0-12.0) % Eosinophils % (0.00-5.0) % Basophils % (0.0-0.4) % Absolute Granulocytes (1.4-6.9) Basophils # (0-0.4) Sodium (137-145) mmol/L Potassium (3.5-5.1) mmol/L Chloride (98-107) mmol/L Carbon Dioxide (22-30) mmol/L Anion Gap (5-15) MEQ/L BUN (7-17) mg/dL Creatinine (0.52-1.04) mg/dL Estimated GFR ML/MIN Glucose (74-106) mg/dL POC Glucometer (74 to 106) mg/dL Calcium (8.4-10.2) mg/dL Magnesium (1.6-2.3) mg/dL Total Bilirubin (0.2-1.3) mg/dL AST (14-36) U/L ALT (0-35) U/L Alkaline Phosphatase (38-126) U/L Troponin I < 0.012 < 0.012 (0.000-0.034) ng/mL NT-Pro-B Natriuret Pep (0-1800) pg/mL Serum Total Protein (6.3-8.2) g/dL Albumin (3.5-5.0) g/dL Lipase (23-300) U/L Urine Color (YELLOW) Urine Appearance (CLEAR) Urine pH (5-6) Ur Specific [place] (1.005-1.025) Urine Protein (Negative) Urine Ketones (NEGATIVE) Urine Blood (0-5) Lee/ul Urine Nitrite (NEGATIVE) Urine Bilirubin (NEGATIVE) Urine Urobilinogen (0-1) mg/dL Ur Leukocyte Esterase (NEGATIVE) Urine WBC (Auto) (0-5) /HPF Urine RBC (Auto) (0-2) /HPF U Hyaline Cast (Auto) (0-2) /LPF U Epithel Cells (Auto) (FEW) /HPF Urine Bacteria (Auto) (NEGATIVE) /HPF Urine Mucus (Auto) (NEGATIVE) /HPF Urine Culture Reflexed (NO) Urine Glucose (NEGATIVE) mg/dL SARS-CoV-2 (PCR) NEGATIVE (NEGATIVE) 12/16/19 12/16/19 12/17/19 Range/Units 21:10 Unknown 04:15 WBC 7.3 (4.0-10.5) K/mm3 RBC 4.08 L (4.1-5.4) M/mm3 Hgb 12.9 (12.0-16.0) gm/dl Hct 40.4 (35-47) % MCV 99.0 (78-100) fl MCH 31.6 (26-32) pg MCHC 31.9 L (32-36) g/dl RDW 13.7 (11.5-14.0) % Plt Count 272 (150-450) K/mm3 MPV 10.4 (7.5-11.0) fl Gran % 67.8 H (36.0-66.0) % Eos # (Auto) 0.03 (0-0.5) Absolute Lymphs (auto) 1.57 (1.0-4.6) Absolute Monos (auto) 0.73 (0.0-1.3) Lymphocytes % 21.6 L (24.0-44.0) % Monocytes % 10.1 (0.0-12.0) % Eosinophils % 0.4 (0.00-5.0) % Basophils % 0.1 (0.0-0.4) % Absolute Granulocytes 4.92 (1.4-6.9) Basophils # 0.01 (0-0.4) Sodium (137-145) mmol/L Potassium (3.5-5.1) mmol/L Chloride (98-107) mmol/L Carbon Dioxide (22-30) mmol/L Anion Gap (5-15) MEQ/L BUN (7-17) mg/dL Creatinine (0.52-1.04) mg/dL Estimated GFR ML/MIN Glucose (74-106) mg/dL POC Glucometer (74 to 106) mg/dL Calcium (8.4-10.2) mg/dL Magnesium (1.6-2.3) mg/dL Total Bilirubin (0.2-1.3) mg/dL AST (14-36) U/L ALT (0-35) U/L Alkaline Phosphatase (38-126) U/L Troponin I < 0.012 (0.000-0.034) ng/mL NT-Pro-B Natriuret Pep (0-1800) pg/mL Serum Total Protein (6.3-8.2) g/dL Albumin (3.5-5.0) g/dL Lipase (23-300) U/L Urine Color STRAW (YELLOW) Urine Appearance CLEAR (CLEAR) Urine pH 7.0 (5-6) Ur Specific [place] 1.003 (1.005-1.025) Urine Protein NEGATIVE (Negative) Urine Ketones NEGATIVE (NEGATIVE) Urine Blood LARGE (0-5) Lee/ul Urine Nitrite NEGATIVE (NEGATIVE) Urine Bilirubin NEGATIVE (NEGATIVE) Urine Urobilinogen NEGATIVE (0-1) mg/dL Ur Leukocyte Esterase TRACE (NEGATIVE) Urine WBC (Auto) 0-2 (0-5) /HPF Urine RBC (Auto) 0-2 (0-2) /HPF U Hyaline Cast (Auto) 0-2 (0-2) /LPF U Epithel Cells (Auto) NONE (FEW) /HPF Urine Bacteria (Auto) NONE (NEGATIVE) /HPF Urine Mucus (Auto) SLIGHT (NEGATIVE) /HPF Urine Culture Reflexed NO (NO) Urine Glucose NEGATIVE (NEGATIVE) mg/dL SARS-CoV-2 (PCR) (NEGATIVE) 12/17/19 12/17/19 Range/Units 06:00 07:28 WBC (4.0-10.5) K/mm3 RBC (4.1-5.4) M/mm3 Hgb (12.0-16.0) gm/dl Hct (35-47) % MCV (78-100) fl MCH (26-32) pg MCHC (32-36) g/dl RDW (11.5-14.0) % Plt Count (150-450) K/mm3 MPV (7.5-11.0) fl Gran % (36.0-66.0) % Eos # (Auto) (0-0.5) Absolute Lymphs (auto) (1.0-4.6) Absolute Monos (auto) (0.0-1.3) Lymphocytes % (24.0-44.0) % Monocytes % (0.0-12.0) % Eosinophils % (0.00-5.0) % Basophils % (0.0-0.4) % Absolute Granulocytes (1.4-6.9) Basophils # (0-0.4) Sodium (137-145) mmol/L Potassium (3.5-5.1) mmol/L Chloride (98-107) mmol/L Carbon Dioxide (22-30) mmol/L Anion Gap (5-15) MEQ/L BUN (7-17) mg/dL Creatinine (0.52-1.04) mg/dL Estimated GFR ML/MIN Glucose (74-106) mg/dL POC Glucometer 91 (74 to 106) mg/dL Calcium (8.4-10.2) mg/dL Magnesium (1.6-2.3) mg/dL Total Bilirubin (0.2-1.3) mg/dL AST (14-36) U/L ALT (0-35) U/L Alkaline Phosphatase (38-126) U/L Troponin I < 0.012 (0.000-0.034) ng/mL NT-Pro-B Natriuret Pep (0-1800) pg/mL Serum Total Protein (6.3-8.2) g/dL Albumin (3.5-5.0) g/dL Lipase (23-300) U/L Urine Color (YELLOW) Urine Appearance (CLEAR) Urine pH (5-6) Ur Specific [place] (1.005-1.025) Urine Protein (Negative) Urine Ketones (NEGATIVE) Urine Blood (0-5) Lee/ul Urine Nitrite (NEGATIVE) Urine Bilirubin (NEGATIVE) Urine Urobilinogen (0-1) mg/dL Ur Leukocyte Esterase (NEGATIVE) Urine WBC (Auto) (0-5) /HPF Urine RBC (Auto) (0-2) /HPF U Hyaline Cast (Auto) (0-2) /LPF U Epithel Cells (Auto) (FEW) /HPF Urine Bacteria (Auto) (NEGATIVE) /HPF Urine Mucus (Auto) (NEGATIVE) /HPF Urine Culture Reflexed (NO) Urine Glucose (NEGATIVE) mg/dL SARS-CoV-2 (PCR) (NEGATIVE) Accuchecks Date 12/17/19 Time 07:30 Accucheck Value: 91 - Radiology Impressions Radiology Exams & Impressions: Radiology Procedures Category Date Time Status HEAD WITHOUT CONTRAST [CT] Stat Exams 12/16/19 15:50 Completed Assessment/Plan (1) Syncope Current Visit: Yes Status: Acute Qualifiers: Syncope type: carotid sinus syncope Qualified Code(s): G90.01 - Carotid sinus syncope Code(s): R55 - SYNCOPE AND COLLAPSE (2) Bradycardia Current Visit: Yes Status: Acute Assessment & Plan: Likely transfer for likely pacemaker placement today. Code(s): R00.1 - BRADYCARDIA, UNSPECIFIED (3) Essential hypertension Current Visit: No Status: Chronic Code(s): I10 - ESSENTIAL (PRIMARY) HY PERTENSION (4) Mild dementia Current Visit: No Status: Chronic Code(s): F03.90 - UNSPECIFIED DEMENTIA WI THOUT BEHAVIORAL DISTURBANCE Hospital Summary - Hospital Course Hospital Course: Pt is 84 yo female with mild dementia and HTN admitted with syncope and diarrhea; no diarrhea today. HR in the 30s overnight, so call is pending to cardiology for pacemaker placement and transfer. - Vitals & Intake/Output Vital Signs: Vital Signs Temperature 98.6 F 12/17/19 07:16 Pulse Rate 85 12/17/19 07:16 Respiratory Rate 14 12/17/19 07:45 Blood Pressure 189/78 12/17/19 07:16 O2 Sat by Pulse Oximetry 95 12/17/19 07:16 Intake & Output: Intake & Output 12/14/19 12/15/19 12/16/19 12/17/19 11:59 11:59 11:59 11:59 Intake Total 833 Output Total 300 Balance 533 Weight 57.2 kg - Lab Result Diagrams: 12/17/19 04:15 12/16/19 14:30 Lab Results-Last 24 Hrs: Accuchecks Date 12/17/19 Time 07:30 Accucheck Value: 91 Lab Results-Last 24 Hours 12/16/19 12/16/19 12/16/19 Range/Units 00:00 14:30 14:30 WBC 6.2 (4.0-10.5) K/mm3 RBC 3.62 L (4.1-5.4) M/mm3 Hgb 11.6 L (12.0-16.0) gm/dl Hct 35.2 (35-47) % MCV 97.2 (78-100) fl MCH 32.0 (26-32) pg MCHC 33.0 (32-36) g/dl RDW 13.3 (11.5-14.0) % Plt Count 258 (150-450) K/mm3 MPV 9.9 (7.5-11.0) fl Gran % 68.5 H (36.0-66.0) % Eos # (Auto) 0.07 (0-0.5) Absolute Lymphs (auto) 1.27 (1.0-4.6) Absolute Monos (auto) 0.61 (0.0-1.3) Lymphocytes % 20.4 L (24.0-44.0) % Monocytes % 9.8 (0.0-12.0) % Eosinophils % 1.1 (0.00-5.0) % Basophils % 0.2 (0.0-0.4) % Absolute Granulocytes 4.28 (1.4-6.9) Basophils # 0.01 (0-0.4) Sodium 127 L (137-145) mmol/L Potassium 3.5 (3.5-5.1) mmol/L Chloride 95 L (98-107) mmol/L Carbon Dioxide 27 (22-30) mmol/L Anion Gap 8.9 (5-15) MEQ/L BUN 14 (7-17) mg/dL Creatinine 0.75 (0.52-1.04) mg/dL Estimated GFR > 60.0 ML/MIN Glucose 128 H (74-106) mg/dL POC Glucometer (74 to 106) mg/dL Calcium 8.9 (8.4-10.2) mg/dL Magnesium 2.1 (1.6-2.3) mg/dL Total Bilirubin 0.40 (0.2-1.3) mg/dL AST 22 (14-36) U/L ALT 11 (0-35) U/L Alkaline Phosphatase 68 (38-126) U/L Troponin I < 0.012 (0.000-0.034) ng/mL NT-Pro-B Natriuret Pep 307 (0-1800) pg/mL Serum Total Protein 6.7 (6.3-8.2) g/dL Albumin 3.5 (3.5-5.0) g/dL Lipase 134 (23-300) U/L Urine Color (YELLOW) Urine Appearance (CLEAR) Urine pH (5-6) Ur Specific [place] (1.005-1.025) Urine Protein (Negative) Urine Ketones (NEGATIVE) Urine Blood (0-5) Lee/ul Urine Nitrite (NEGATIVE) Urine Bilirubin (NEGATIVE) Urine Urobilinogen (0-1) mg/dL Ur Leukocyte Esterase (NEGATIVE) Urine WBC (Auto) (0-5) /HPF Urine RBC (Auto) (0-2) /HPF U Hyaline Cast (Auto) (0-2) /LPF U Epithel Cells (Auto) (FEW) /HPF Urine Bacteria (Auto) (NEGATIVE) /HPF Urine Mucus (Auto) (NEGATIVE) /HPF Urine Culture Reflexed (NO) Urine Glucose (NEGATIVE) mg/dL SARS-CoV-2 (PCR) (NEGATIVE) 12/16/19 12/16/19 12/16/19 Range/Units 14:30 17:46 18:25 WBC (4.0-10.5) K/mm3 RBC (4.1-5.4) M/mm3 Hgb (12.0-16.0) gm/dl Hct (35-47) % MCV (78-100) fl MCH (26-32) pg MCHC (32-36) g/dl RDW (11.5-14.0) % Plt Count (150-450) K/mm3 MPV (7.5-11.0) fl Gran % (36.0-66.0) % Eos # (Auto) (0-0.5) Absolute Lymphs (auto) (1.0-4.6) Absolute Monos (auto) (0.0-1.3) Lymphocytes % (24.0-44.0) % Monocytes % (0.0-12.0) % Eosinophils % (0.00-5.0) % Basophils % (0.0-0.4) % Absolute Granulocytes (1.4-6.9) Basophils # (0-0.4) Sodium (137-145) mmol/L Potassium (3.5-5.1) mmol/L Chloride (98-107) mmol/L Carbon Dioxide (22-30) mmol/L Anion Gap (5-15) MEQ/L BUN (7-17) mg/dL Creatinine (0.52-1.04) mg/dL Estimated GFR ML/MIN Glucose (74-106) mg/dL POC Glucometer (74 to 106) mg/dL Calcium (8.4-10.2) mg/dL Magnesium (1.6-2.3) mg/dL Total Bilirubin (0.2-1.3) mg/dL AST (14-36) U/L ALT (0-35) U/L Alkaline Phosphatase (38-126) U/L Troponin I < 0.012 < 0.012 (0.000-0.034) ng/mL NT-Pro-B Natriuret Pep (0-1800) pg/mL Serum Total Protein (6.3-8.2) g/dL Albumin (3.5-5.0) g/dL Lipase (23-300) U/L Urine Color (YELLOW) Urine Appearance (CLEAR) Urine pH (5-6) Ur Specific [place] (1.005-1.025) Urine Protein (Negative) Urine Ketones (NEGATIVE) Urine Blood (0-5) Lee/ul Urine Nitrite (NEGATIVE) Urine Bilirubin (NEGATIVE) Urine Urobilinogen (0-1) mg/dL Ur Leukocyte Esterase (NEGATIVE) Urine WBC (Auto) (0-5) /HPF Urine RBC (Auto) (0-2) /HPF U Hyaline Cast (Auto) (0-2) /LPF U Epithel Cells (Auto) (FEW) /HPF Urine Bacteria (Auto) (NEGATIVE) /HPF Urine Mucus (Auto) (NEGATIVE) /HPF Urine Culture Reflexed (NO) Urine Glucose (NEGATIVE) mg/dL SARS-CoV-2 (PCR) NEGATIVE (NEGATIVE) 12/16/19 12/16/19 12/17/19 Range/Units 21:10 Unknown 04:15 WBC 7.3 (4.0-10.5) K/mm3 RBC 4.08 L (4.1-5.4) M/mm3 Hgb 12.9 (12.0-16.0) gm/dl Hct 40.4 (35-47) % MCV 99.0 (78-100) fl MCH 31.6 (26-32) pg MCHC 31.9 L (32-36) g/dl RDW 13.7 (11.5-14.0) % Plt Count 272 (150-450) K/mm3 MPV 10.4 (7.5-11.0) fl Gran % 67.8 H (36.0-66.0) % Eos # (Auto) 0.03 (0-0.5) Absolute Lymphs (auto) 1.57 (1.0-4.6) Absolute Monos (auto) 0.73 (0.0-1.3) Lymphocytes % 21.6 L (24.0-44.0) % Monocytes % 10.1 (0.0-12.0) % Eosinophils % 0.4 (0.00-5.0) % Basophils % 0.1 (0.0-0.4) % Absolute Granulocytes 4.92 (1.4-6.9) Basophils # 0.01 (0-0.4) Sodium (137-145) mmol/L Potassium (3.5-5.1) mmol/L Chloride (98-107) mmol/L Carbon Dioxide (22-30) mmol/L Anion Gap (5-15) MEQ/L BUN (7-17) mg/dL Creatinine (0.52-1.04) mg/dL Estimated GFR ML/MIN Glucose (74-106) mg/dL POC Glucometer (74 to 106) mg/dL Calcium (8.4-10.2) mg/dL Magnesium (1.6-2.3) mg/dL Total Bilirubin (0.2-1.3) mg/dL AST (14-36) U/L ALT (0-35) U/L Alkaline Phosphatase (38-126) U/L Troponin I < 0.012 (0.000-0.034) ng/mL NT-Pro-B Natriuret Pep (0-1800) pg/mL Serum Total Protein (6.3-8.2) g/dL Albumin (3.5-5.0) g/dL Lipase (23-300) U/L Urine Color STRAW (YELLOW) Urine Appearance CLEAR (CLEAR) Urine pH 7.0 (5-6) Ur Specific [place] 1.003 (1.005-1.025) Urine Protein NEGATIVE (Negative) Urine Ketones NEGATIVE (NEGATIVE) Urine Blood LARGE (0-5) Lee/ul Urine Nitrite NEGATIVE (NEGATIVE) Urine Bilirubin NEGATIVE (NEGATIVE) Urine Urobilinogen NEGATIVE (0-1) mg/dL Ur Leukocyte Esterase TRACE (NEGATIVE) Urine WBC (Auto) 0-2 (0-5) /HPF Urine RBC (Auto) 0-2 (0-2) /HPF U Hyaline Cast (Auto) 0-2 (0-2) /LPF U Epithel Cells (Auto) NONE (FEW) /HPF Urine Bacteria (Auto) NONE (NEGATIVE) /HPF Urine Mucus (Auto) SLIGHT (NEGATIVE) /HPF Urine Culture Reflexed NO (NO) Urine Glucose NEGATIVE (NEGATIVE) mg/dL SARS-CoV-2 (PCR) (NEGATIVE) 12/17/19 12/17/19 Range/Units 06:00 07:28 WBC (4.0-10.5) K/mm3 RBC (4.1-5.4) M/mm3 Hgb (12.0-16.0) gm/dl Hct (35-47) % MCV (78-100) fl MCH (26-32) pg MCHC (32-36) g/dl RDW (11.5-14.0) % Plt Count (150-450) K/mm3 MPV (7.5-11.0) fl Gran % (36.0-66.0) % Eos # (Auto) (0-0.5) Absolute Lymphs (auto) (1.0-4.6) Absolute Monos (auto) (0.0-1.3) Lymphocytes % (24.0-44.0) % Monocytes % (0.0-12.0) % Eosinophils % (0.00-5.0) % Basophils % (0.0-0.4) % Absolute Granulocytes (1.4-6.9) Basophils # (0-0.4) Sodium (137-145) mmol/L Potassium (3.5-5.1) mmol/L Chloride (98-107) mmol/L Carbon Dioxide (22-30) mmol/L Anion Gap (5-15) MEQ/L BUN (7-17) mg/dL Creatinine (0.52-1.04) mg/dL Estimated GFR ML/MIN Glucose (74-106) mg/dL POC Glucometer 91 (74 to 106) mg/dL Calcium (8.4-10.2) mg/dL Magnesium (1.6-2.3) mg/dL Total Bilirubin (0.2-1.3) mg/dL AST (14-36) U/L ALT (0-35) U/L Alkaline Phosphatase (38-126) U/L Troponin I < 0.012 (0.000-0.034) ng/mL NT-Pro-B Natriuret Pep (0-1800) pg/mL Serum Total Protein (6.3-8.2) g/dL Albumin (3.5-5.0) g/dL Lipase (23-300) U/L Urine Color (YELLOW) Urine Appearance (CLEAR) Urine pH (5-6) Ur Specific [place] (1.005-1.025) Urine Protein (Negative) Urine Ketones (NEGATIVE) Urine Blood (0-5) Lee/ul Urine Nitrite (NEGATIVE) Urine Bilirubin (NEGATIVE) Urine Urobilinogen (0-1) mg/dL Ur Leukocyte Esterase (NEGATIVE) Urine WBC (Auto) (0-5) /HPF Urine RBC (Auto) (0-2) /HPF U Hyaline Cast (Auto) (0-2) /LPF U Epithel Cells (Auto) (FEW) /HPF Urine Bacteria (Auto) (NEGATIVE) /HPF Urine Mucus (Auto) (NEGATIVE) /HPF Urine Culture Reflexed (NO) Urine Glucose (NEGATIVE) mg/dL SARS-CoV-2 (PCR) (NEGATIVE) Micro Results-Entire Visit: Accuchecks Date 12/17/19 Time 07:30 Accucheck Value: 91 - Radiology Exams Ordered Rad Exams-Entire Visit: Radiology Procedures Category Date Time Status HEAD WITHOUT CONTRAST [CT] Stat Exams 12/16/19 15:50 Completed - Discharge Disposition: Home, Self-Care Condition: Stable Prescriptions: No Action Lisinopril 5 mg [Zestril 5 MG] 2.5 mg PO BID Follow up with: SOO CALERO [Primary Care Provider] - 1 Week
[2019-12-17] MEDS ORDERED: Zestril 5 MG PO SCH (10:45)
[2019-12-17 11:58] LABS: BLOOD UREA NITROGEN 24 mg/dL (7-17); Creatinine 1 0.92 mg/dL (0.52-1.04); EST GLOMERULAR FILTRATION RATE > 60.0 ML/MIN; Glucose 107 mg/dL (74-106)
[2019-12-17 11:59] LABS: ANION GAP 6.6 MEQ/L (5-15); CHLORIDE 104 mmol/L (98-107); Calcium 7.4 mg/dL (8.4-10.2); Carbon Dioxide 28 mmol/L (22-30); Potassium 3.6 mmol/L (3.5-5.1); SODIUM 135 mmol/L (137-145)
--- NOTE | 2019-12-17 22:15 | XRAY ---
Exam: Bilateral duplex Doppler carotid ultrasound examination from 12/17/2019. Comparison: None. Indication: Syncope. Technique: Robb scale images, color flow images, and Doppler tracings were obtained of both carotid arteries. Findings: On the right side, there is a small focal calcified plaque at the anterior margin of the common carotid artery bifurcation. Peak systolic flow velocities in centimeters per second measure 87 and 96 within the proximal and distal common carotid artery, 94 and 106 within the proximal and distal internal carotid artery, and 143 within the external carotid artery. The peak ICA to CCA systolic velocity ratio is 1.1 which is not significantly elevated. The right vertebral artery reveals antegrade flow with a peak systolic flow velocity of 61 cm/s. On the left side, there is a tiny intimal calcification within the posterior aspect of the distal common carotid artery. I also note mild anterior and posterior fibrous plaque at the carotid bifurcation. Peak systolic flow velocities in centimeters per second measure 101 and 95 within the proximal and distal common carotid artery, 82 and 68 within the proximal and distal internal carotid artery, and 127 within the external carotid artery. The peak systolic flow velocity ratio between the ICA and CCA is 0.9 which is not elevated. The left vertebral artery reveals antegrade flow with a peak systolic flow velocity of 52 cm/s. Impression: 1. The Doppler data do not reveal any evidence of a hemodynamically significant stenosis of 50% or greater diameter reduction within either carotid artery. Minor atherosclerosis is seen within both carotid arteries. 2. Both vertebral arteries reveal antegrade flow.
== END 2019-12-17 10:48 | disposition home or self-care (01) ==
LOC: ED 14:05 → MED SURG 20:48
PROVIDERS: ADMIT Family Medicine; ATTEND Family Medicine
DX: R55 Syncope and collapse (principal); R11.0 Nausea; R19.7 Diarrhea, unspecified; I10 Essential (primary) hypertension; R00.1 Bradycardia, unspecified; F03.90 Unspecified dementia, unspecified severity, without behavioral disturbance, psychotic disturbance, mood disturbance, and anxiety; Z79.899 Other long term (current) drug therapy
CPT/HCPCS: 36415; 70450; 80048; 80053; 81001; 82962; 83690; 83735; 83880; 84443; 84484; 85025; 93005; 93041; 93306; 93880; 94760; 99285; U0003; 93268; J0360; G0378

== ENCOUNTER 2019-12-29 09:03 | Day surgery (SDC) | payer MEDICARE, OTHER ==
[~2019-12-29 09:03] MED LIST changes: -ACETAZOLAMIDE 250 MG TABLET PO ONE; -Ak-Dilate OPHTHALMIC*** 0.71 ML, Cyclogyl 1% OPHTH SOL 5 ML 0.71 ML, GATIFLOXACIN 0.5% ... OP ONE; +DIPRIVAN 200 MG/20 ML IV ONE; +Ketamine HCl 50 MG/ML ONE; -Lactated Ringers 1,000 ML IV ONE; -Lactated Ringers 1,000 ML IV SCH; -TETRACAINE 0.5% STERI-UNIT SOL OP ONE; -Zofran 4 MG/2 ML VIAL IV PRN
[2019-12-29] MEDS ORDERED: BUPIVACAINE 0.5% VIAL IJ ONE (09:04)
[2019-12-29] MEDS ORDERED: Depo-Medrol 40 MG/ML IM ONE (09:04)
--- NOTE | 2019-12-29 13:29 | XRAY ---
Indication: Right SI joint injection. Intraoperative fluoroscopy was provided for 13 seconds. 2 digital spot images submitted for interpretation demonstrates posterior needle tip projecting over the inferior right SI joint. Correlate with intraoperative findings/report.
--- NOTE | 2019-12-29 13:32 | XRAY ---
13 seconds of fluoroscopy was used in surgery for a right SI joint injection.
[2019-12-29] MEDS ORDERED: Lactated Ringers 1,000 ML IV ONE (15:49)
== END 2019-12-29 11:10 | disposition home or self-care (01) ==
LOC: SDC-PAIN 09:03
PROVIDERS: ATTEND Psychiatry & Neurology Pain Medicine
DX: M46.1 Sacroiliitis, not elsewhere classified (principal); Z79.899 Other long term (current) drug therapy
CPT/HCPCS: 72020; 77002; J1030; J2704

== ENCOUNTER 2020-01-12 09:07 | Day surgery (SDC) | payer MEDICARE, OTHER ==
[2020-01-12] MEDS ORDERED: Lactated Ringers 1,000 ML IV ONE (09:08)
[2020-01-12] MEDS ORDERED: Depo-Medrol 40 MG/ML IM ONE (09:08)
[2020-01-12] MEDS ORDERED: BUPIVACAINE 0.5% VIAL IJ ONE (09:08)
--- NOTE | 2020-01-12 11:43 | XRAY ---
Indication: Right SI joint injection. Intraoperative fluoroscopy was provided for 10 seconds. 2 digital spot images submitted for interpretation demonstrates posterior needle tip projecting over the inferior right SI joint. Correlate with intraoperative findings/report.
--- NOTE | 2020-01-12 11:43 | XRAY ---
22 seconds fluoroscopy time in surgery for right hip intra-articular injection.
--- NOTE | 2020-01-12 11:53 | XRAY ---
10 seconds fluoroscopy time in surgery for right SI joint injection.
--- NOTE | 2020-01-12 11:53 | XRAY ---
Indication: Right hip injection. Intraoperative fluoroscopy was provided for 9 seconds. Single digital spot image obtained prone demonstrates needle tip projecting just lateral to the right femur neck. Small amount of contrast injected for needle tip placement. Correlate with intraoperative findings/report.
== END 2020-01-12 11:16 | disposition home or self-care (01) ==
LOC: SDC-PAIN 09:07
PROVIDERS: ATTEND Psychiatry & Neurology Pain Medicine
DX: M16.11 Unilateral primary osteoarthritis, right hip (principal); M46.1 Sacroiliitis, not elsewhere classified; Z79.899 Other long term (current) drug therapy; Z95.0 Presence of cardiac pacemaker
CPT/HCPCS: 20610; 64451; 72020; 73501; 77002; J1030; J2704; Q9966

== ENCOUNTER 2020-02-09 11:30 | Day surgery (SDC) | payer MEDICARE, OTHER ==
[2020-02-09] MEDS ORDERED: Depo-Medrol 40 MG/ML IM ONE (11:31)
[2020-02-09] MEDS ORDERED: Sodium Chloride 0.9(Preservative Free) 10 ML IJ ONE (11:31)
--- NOTE | 2020-02-09 13:27 | XRAY ---
47 seconds fluoroscopy time in surgery for right L3-L5 transforaminal ELIEZER.
[2020-02-09] MEDS ORDERED: Lactated Ringers 1,000 ML IV ONE (16:49)
--- NOTE | 2020-02-10 16:35 | XRAY ---
Indication: Right L3-L5 transforaminal ELIEZER. Intraoperative fluoroscopy was provided for 47 seconds. 4 digital spot images submitted for interpretation demonstrates posterior needle tips projecting over the right L3 and L4 nerve roots. Small amount of contrast injected for needle tip placement. Correlate with intraoperative findings/report. Incidental L2-L3 posterior spinous process fusion hardware.
== END 2020-02-09 13:27 | disposition home or self-care (01) ==
LOC: SDC-PAIN 11:30
PROVIDERS: ATTEND Psychiatry & Neurology Pain Medicine
DX: M54.16 Radiculopathy, lumbar region (principal); Z79.899 Other long term (current) drug therapy
CPT/HCPCS: 64483; 64484; 72100; 77003; 99100; J1030; J2704; Q9966

== ENCOUNTER 2020-03-29 12:52 | Day surgery (SDC) | payer MEDICARE, OTHER ==
[2020-03-29] MEDS ORDERED: Depo-Medrol 40 MG/ML IM ONE (12:53)
[2020-03-29] MEDS ORDERED: Sodium Chloride 0.9(Preservative Free) 10 ML IJ ONE (12:53)
[2020-03-29] MEDS ORDERED: Ketamine HCl 50 MG/ML ONE (14:01)
[2020-03-29] MEDS ORDERED: DIPRIVAN 200 MG/20 ML IV ONE (14:01)
--- NOTE | 2020-03-29 15:02 | XRAY ---
Indication: Right L2-L4 transforaminal ELIEZER. Intraoperative fluoroscopy was provided for 28 seconds. 5 digital spot images submitted for interpretation demonstrates posterior needle tips projecting over the expected right L2 and L3 nerve roots. Small amount of contrast injected for needle tip placement. Correlate with intraoperative findings/report. Incidental L2-L3 posterior spinous process fusion hardware.
--- NOTE | 2020-03-29 15:21 | XRAY ---
28 seconds fluoroscopy time in surgery for right L2-L4 transforaminal ELIEZER.
[2020-03-29] MEDS ORDERED: Lactated Ringers 1,000 ML IV ONE (16:06)
== END 2020-03-29 14:34 | disposition home or self-care (01) ==
LOC: SDC-PAIN 12:52
PROVIDERS: ATTEND Psychiatry & Neurology Pain Medicine
DX: M54.16 Radiculopathy, lumbar region (principal); Z79.899 Other long term (current) drug therapy
CPT/HCPCS: 64483; 64484; 72100; 77003; 99100; J1030; J2704; Q9966

== ENCOUNTER 2020-07-17 13:16 | Emergency (ER) | payer MEDICARE, OTHER ==
--- NOTE | 2020-07-17 13:19 | ERPHSYRPT ---
- History of Present Illness Time Seen by Provider: 07/17/20 13:19 Source: patient, family Exam Limitations: no limitations Physician History: This is an 84-year-old white female with history of hypertension who stood up on her porch and slowly fell to the ground hitting her head. Patient is not on any anticoagulation therapy. Patient does state that she has been getting dizzy more frequently. She is taking lisinopril for hypertension. Patient states that she did not lose consciousness. Patient has no other pain complaints. Occurred: just prior to arrival Reason for Fall: fell from standing pos Injuries/Pain Location: head Loss of Consciousness: no loss of consciousness Quality: aching Severity of Pain-Max: mild Severity of Pain-Current: mild Associated Symptoms (Fall): dizziness, headache, No confusion, No chest pain, No extremity injury, No shortness of breath Allergies/Adverse Reactions: No Known Drug Allergies Allergy (Verified 07/17/20 13:30) Home Medications: Lisinopril 5 mg [Zestril 5 MG] 2.5 mg PO BID 12/17/19 [History] Fluoxetine HCl 10 mg [Prozac 10 mg] 1 ea DAILY 07/17/20 [History] Hydrocodone/Acetaminophen [Hydrocodone-Acetamin 5-325 mg ] 1 ea BID 07/17/20 [History] Hx Tetanus, Diphtheria Vaccination/Date Given: No Hx Influenza Vaccination/Date Given: Yes (2015) Hx Pneumococcal Vaccination/Date Given: No Travel Risk - International Travel Have you traveled outside of the country in past 3 weeks: No - Coronavirus Screening Are you exhibiting any of the following symptoms?: No Close contact with a COVID-19 positive Pt in past 14-21 Days: No - Vaccine Status Have you recieved a Covid-19 vaccination: No - Review of Systems Constitutional: No Symptoms Eyes: No Symptoms Ears, Nose, & Throat: No Symptoms Respiratory: No Symptoms Cardiac: No Symptoms Abdominal/Gastrointestinal: No Symptoms Genitourinary Symptoms: No Symptoms Musculoskeletal: No Symptoms Skin: Other (Contusion right forehead) Neurological: Dizziness, Headache Psychological: No Symptoms Endocrine: No Symptoms Hematologic/Lymphatic: No Symptoms Immunological/Allergic: No Symptoms All Other Systems: Reviewed and Negative - Past Medical History Pertinent Past Medical History: Yes Neurological History: No Pertinent History ENT History: Cataracts Cardiac History: Arrhythmia, Hypertension Respiratory History: No Pertinent History Endocrine Medical History: Other Musculoskeletal History: Osteoarthritis GI Medical History: No Pertinent History History: No Pertinent History Psycho-Social History: No Pertinent History Female Reproductive Disorders: No Pertinent History Other Medical History: bradycardia, Pacemaker, UTI, - Past Surgical History Past Surgical History: Yes Neuro Surgical History: No Pertinent History Cardiac: No Pertinent History Respiratory: No Pertinent History Gastrointestinal: No Pertinent History Genitourinary: No Pertinent History Musculoskeletal: No Pertinent History Female Surgical History: No Pertinent History Other Surgical History: BACK SURGERY--LUMBAR - Social History Smoking Status: Never smoker Exposure to second hand smoke: No Drug Use: none Patient Lives Alone: No Significant Family History: heart disease - Nursing Vital Signs Nursing Vital Signs: Initial Vital Signs Temperature 97.2 F 07/17/20 13:33 Pulse Rate 70 07/17/20 13:33 Respiratory Rate 16 07/17/20 13:33 Blood Pressure 195/78 07/17/20 13:33 O2 Sat by Pulse Oximetry 99 07/17/20 13:33 Pain Scale Pain Intensity 8 - [place] Coma Score Best Eye Response ([place]): (4) open spontaneously Best Verbal Response ([place]): (5) oriented Best Motor Response ([place]): (6) obeys commands [place] Total: 15 - Physical Exam General Appearance: no apparent distress, alert, anxiety, thin Head Injury: contusions, swelling, tenderness (Right forehead) Eye Exam: PERRL/EOMI, eyes nml inspection ENT Exam: airway nml, nml ext.inspection, No evidence of ENT injury, No dental injury Neck Exam: supple, trachea midline, full range of motion, normal alignment, normal inspection Respiratory/Chest Exam: normal breath sounds, No chest tenderness, No respira tory distress, No ecchymosis, No crepitus Cardiovascular Exam: normal heart sounds, regular rate/rhythm, No murmur Gastrointestinal Exam: soft, normal bowel sounds, No tenderness Rectal Exam: not done Back Exam: normal inspection, normal range of motion, No CVA tenderness, No vertebral tenderness Extremity Exam: normal inspection, normal range of motion, capillary refill <3 sec, pelvis stable Neurologic Exam: alert, oriented x 3, cooperative, community arts officer II-XII nml as tested, normal mood/affect, nml cerebellar function, nml station & gait, sensation nml Skin Exam: abrasion (Right forehead), ecchymosis (Right forehead) SpO2 Interpretation: normal O2 Delivery: Room Air Ordered Tests: Active Orders 24 hr Category Date Time Status EKG-ER Only STAT Care 07/17/20 13:47 Active IV Insertion STAT Care 07/17/20 13:47 Active Pulse Oximetry (ED) STAT Care 07/17/20 13:47 Active HEAD WITHOUT CONTRAST [CT] Stat Exams 07/17/20 13:48 Completed CBC W DIFF Stat Lab 07/17/20 14:00 Completed CMP Stat Lab 07/17/20 14:00 Completed CULTURE,URINE Stat Lab 07/17/20 13:47 Received UA W/RFX UR CULTURE Stat Lab 07/17/20 13:47 Completed Medication Summary Discontinued Medications Generic Name Dose Route Start Last Admin Trade Name Freq PRN Reason Stop Dose Admin Sodium Chloride 500 mls @ 500 mls/hr 07/17/20 13:49 07/17/20 13:53 Sodium Chloride 0.9% 500 Ml IV 07/17/20 14:48 500 mls/hr .Q1H ONE Administration Sodium Chloride Confirm 07/17/20 13:52 Sodium Chloride 0.9% 500 Ml Administered 07/17/20 13:53 Dose 500 mls @ ud IV .STK-MED ONE Lab/Rad Data: Laboratory Result Diagrams 07/17/20 14:00 07/17/20 14:00 Laboratory Results 07/17/20 07/17/20 07/17/20 Range/Units 14:00 14:00 13:47 WBC 5.8 (4.0-10.5) K/mm3 RBC 3.68 L (4.1-5.4) M/mm3 Hgb 11.7 L (12.0-16.0) gm/dl Hct 36.5 (35-47) % MCV 99.2 (78-100) fl MCH 31.8 (26-32) pg MCHC 32.1 (32-36) g/dl RDW 13.3 (11.5-14.0) % Plt Count 213 (150-450) K/mm3 MPV 9.8 (7.5-11.0) fl Gran % 62.8 (36.0-66.0) % Eos # (Auto) 0.07 (0-0.5) Absolute Lymphs (auto) 1.49 (1.0-4.6) Absolute Monos (auto) 0.60 (0.0-1.3) Lymphocytes % 25.5 (24.0-44.0) % Monocytes % 10.3 (0.0-12.0) % Eosinophils % 1.2 (0.00-5.0) % Basophils % 0.2 (0.0-0.4) % Absolute Granulocytes 3.67 (1.4-6.9) Basophils # 0.01 (0-0.4) Sodium 133 L (137-145) mmol/L Potassium 3.8 (3.5-5.1) mmol/L Chloride 96 L (98-107) mmol/L Carbon Dioxide 29 (22-30) mmol/L Anion Gap 11.6 (5-15) MEQ/L BUN 16 (7-17) mg/dL Creatinine 0.73 (0.52-1.04) mg/dL Estimated GFR > 60.0 ML/MIN Glucose 111 H (74-106) mg/dL Calcium 9.3 (8.4-10.2) mg/dL Total Bilirubin 0.20 (0.2-1.3) mg/dL AST 28 (14-36) U/L ALT 11 (0-35) U/L Alkaline Phosphatase 48 (38-126) U/L Serum Total Protein 6.5 (6.3-8.2) g/dL Albumin 3.7 (3.5-5.0) g/dL Urine Color YELLOW (YELLOW) Urine Appearance CLOUDY (CLEAR) Urine pH 8.0 (5-6) Ur Specific [place] 1.010 (1.005-1.025) Urine Protein NEGATIVE (Negative) Urine Ketones NEGATIVE (NEGATIVE) Urine Blood SMALL (0-5) Lee/ul Urine Nitrite POSITIVE (NEGATIVE) Urine Bilirubin NEGATIVE (NEGATIVE) Urine Urobilinogen NEGATIVE (0-1) mg/dL Ur Leukocyte Esterase LARGE (NEGATIVE) Urine WBC (Auto) >100 (0-5) /HPF Urine RBC (Auto) 6-10 (0-2) /HPF U Hyaline Cast (Auto) 3-5 (0-2) /LPF U Epithel Cells (Auto) RARE (FEW) /HPF Urine Bacteria (Auto) RARE (NEGATIVE) /HPF Urine Culture Reflexed YES (NO) Urine Glucose NEGATIVE (NEGATIVE) mg/dL - Progress Progress: improved, re-examined Progress Note: 07/17/20 15:27 CAT scan of the head without contrast shows a right frontal subcutaneous hematoma. No skull fractures. No intracranial acute process. Counseled pt/family regarding: lab results, diagnosis, need for follow-up, rad results - Departure Departure Disposition: Home Clinical Impression: UTI (urinary tract infection), Fall with injury, Scalp hematoma Condition: Stable Critical Care Time: No Referrals: SOO CALERO [Primary Care Provider] - Additional Instructions: Drink plenty of fluids. Take your medication as prescribed. Follow-up with your primary care physician Prescriptions: Ciprofloxacin [Cipro 500 MG] 500 mg PO BID #14 tablet
[2020-07-17] MEDS ORDERED: Sodium Chloride 0.9% 500 ML 500 ML IV ONE ×2 (13:49→13:52)
[2020-07-17 14:10] LABS: Absolute Neutrophil Ct (ANC) 3.67 (1.4-6.9); BASOPHIL % 0.2 % (0.0-0.4); Basophil (Absolute #) 0.01 (0-0.4); Eosinophil % 1.2 % (0.00-5.0); Eosinophil (Absolute #) 0.07 (0-0.5); Hematocrit 36.5 % (35-47); Hemoglobin 11.7 gm/dl (12.0-16.0); Lymphocyte (Absolute #) 1.49 (1.0-4.6); Lymphocytes % 25.5 % (24.0-44.0); Mean Cell Volume 99.2 fl (78-100); Mean Corpuscular Hemoglobin 31.8 pg (26-32); Mean Corpuscular Hgb Concent. 32.1 g/dl (32-36); Mean Platelet Volume 9.8 fl (7.5-11.0); Monocytes % 10.3 % (0.0-12.0); Neutrophil % 62.8 % (36.0-66.0); Platelet Count 213 K/mm3 (150-450); Red Blood Count 3.68 M/mm3 (4.1-5.4); Red Cell Distribution Width 13.3 % (11.5-14.0); White Blood Count 5.8 K/mm3 (4.0-10.5)
[2020-07-17 14:24] LABS: ALBUMIN 3.7 g/dL (3.5-5.0); ALKALINE PHOSPHATASE 48 U/L (38-126); ANION GAP 11.6 MEQ/L (5-15); BLOOD UREA NITROGEN 16 mg/dL (7-17); CHLORIDE 96 mmol/L (98-107); Calcium 9.3 mg/dL (8.4-10.2); Carbon Dioxide 29 mmol/L (22-30); Creatinine 1 0.73 mg/dL (0.52-1.04); EST GLOMERULAR FILTRATION RATE > 60.0 ML/MIN; Glucose 111 mg/dL (74-106); Potassium 3.8 mmol/L (3.5-5.1); SGOT/AST 28 U/L (14-36); SGPT/ALT 11 U/L (0-35); SODIUM 133 mmol/L (137-145); Total Protein 6.5 g/dL (6.3-8.2)
[2020-07-17 14:30] LABS: Appearance CLOUDY (CLEAR); Bacteria RARE /HPF (NEGATIVE); Bilirubin NEGATIVE (NEGATIVE); Blood SMALL Ery/ul (0-5); Epithelial Cells RARE /HPF (FEW); Glucose NEGATIVE (NEGATIVE); Ketones NEGATIVE (NEGATIVE); Leukocyte Esterase LARGE (NEGATIVE); Nitrite POSITIVE (NEGATIVE); Protein,Urine Dip NEGATIVE (Negative); Urobilinogen NEGATIVE mg/dL (0-1); WBC >100 /HPF (0-5)
--- NOTE | 2020-07-17 14:39 | XRAY ---
Indication: Right frontal temporal bruising and swelling following fall. Headache. Multiple contiguous axial images obtained through the head without contrast. Comparison: December 16, 2019. Stable age-appropriate global atrophy and mild periventricular degenerative micro-ischemia bilaterally. No acute intracranial hemorrhage, abnormal extra-axial fluid collection, or mass effect. Fourth ventricle is midline without hydrocephalus. New large right frontal scalp hematoma. Bony calvarium intact again with hyperostosis frontalis interna. Again chronic left maxillary sinus mucoperiosteal thickening. Remaining visualized paranasal sinuses and mastoid air cells are clear. Impression: 1. New right frontal scalp hematoma. No underlying fracture or acute intracranial abnormalities. 2. Stable aging brain including atrophy and degenerative micro-ischemia. 3. Again incidental chronic left maxillary sinus disease.
[2020-07-17 15:12] VITALS: BP 156/66; PULSE 71; O2SAT 99
[2020-07-17] MEDS ORDERED: ROCEPHIN 1 Gm-D5w 50 ml Bag** 1 G/50 ML IVPB IV STA (15:29)
[2020-07-17] MEDS ORDERED: ROCEPHIN 1 Gm-D5w 50 ml Bag** 1 G/50 ML IVPB IV ONE (15:32)
== END 2020-07-17 16:10 | disposition home or self-care (01) ==
LOC: ED 13:16
DX: N39.0 Urinary tract infection, site not specified (principal); S00.03XA Contusion of scalp, initial encounter; W18.39XA Other fall on same level, initial encounter; R42 Dizziness and giddiness; Y93.89 Activity, other specified; Y92.89 Other specified places as the place of occurrence of the external cause; I10 Essential (primary) hypertension; Z79.899 Other long term (current) drug therapy
CPT/HCPCS: 36000; 36415; 70450; 80053; 81001; 85025; 87077; 87086; 87186; 93005; 94760; 96360; 96361; 96365; 99284; J0696

== ENCOUNTER 2020-12-20 10:24 | Observation (INO) | payer MEDICARE, OTHER ==
[2020-12-20 10:43] LABS: Absolute Neutrophil Ct (ANC) 3.21 (1.4-6.9); BASOPHIL % 0.3 % (0.0-0.4); Basophil (Absolute #) 0.02 (0-0.4); Eosinophil % 0.9 % (0.00-5.0); Eosinophil (Absolute #) 0.06 (0-0.5); Hematocrit 36.4 % (35-47); Hemoglobin 11.6 gm/dl (12.0-16.0); Lymphocyte (Absolute #) 2.53 (1.0-4.6); Mean Cell Volume 99.7 fl (78-100); Mean Corpuscular Hemoglobin 31.8 pg (26-32); Mean Corpuscular Hgb Concent. 31.9 g/dl (32-36); Mean Platelet Volume 9.3 fl (7.5-11.0); Monocyte (Absolute #) 0.67 (0.0-1.3); Monocytes % 10.3 % (0.0-12.0); Neutrophil % 49.5 % (36.0-66.0); Platelet Count 256 K/mm3 (150-450); Red Blood Count 3.65 M/mm3 (4.1-5.4); Red Cell Distribution Width 13.1 % (11.5-14.0); White Blood Count 6.5 K/mm3 (4.0-10.5)
[2020-12-20 10:53] LABS: ALKALINE PHOSPHATASE 60 U/L (38-126); ANION GAP 12.7 MEQ/L (5-15); BLOOD UREA NITROGEN 15 mg/dL (7-17); CHLORIDE 97 mmol/L (98-107); Calcium 9.2 mg/dL (8.4-10.2); Carbon Dioxide 26 mmol/L (22-30); EST GLOMERULAR FILTRATION RATE > 60.0 ML/MIN; Glucose 81 mg/dL (74-106); Potassium 4.2 mmol/L (3.5-5.1); SGOT/AST 26 U/L (14-36); SGPT/ALT 13 U/L (0-35); SODIUM 132 mmol/L (137-145)
--- NOTE | 2020-12-20 10:58 | XRAY ---
Indication: Chest pain. Comparison: July 03, 2017. Portable chest remains hyperinflated and clear with incidental pulmonary/hilar calcified granulomas. Heart not enlarged with new left dual-lead pacemaker. Bony thorax intact again with mild osteopenia and degenerative changes. Impression: Nonacute hyperinflated chest with chronic features.
--- NOTE | 2020-12-20 11:19 | ERPHSYRPT ---
- History of Present Illness Time Seen by Provider: 12/20/20 10:30 Historian: patient Patient Subjective Stated Complaint: " I started having chest pains on my way home from [place] so I figured I would come in to be seen ". Triage Nursing Assessment: Pt presents to ER with complaints of mid sternal chest pains x30 min PHARMACISTS. States pains radiate up the middle of her neck. Rates pain a 4/10 scale, denies shortness of breath. Denies cough. Respirations are unlabored at this time. Pt does have swelling to left lower extremity and slight swelling to right lower extremity. Pt denies dizziness, lightheadness, nausea, vomiting, or diarrhea. Pt skin is pink, warm, and dry. Pt is alert and oriented. Physician History: Patient is a 85-year-old female presents for emergency department with complaints of substernal chest pain. Chest pain started approximately 30 minutes prior to arrival as she was a passenger in her 's vehicle. There was no activity during the onset of pain. Patient states the pain radiates to her neck. No nausea or vomiting. Pain was significant at the time however upon arrival pain improved to 4 out of 10. No associated cough. No trauma. No fever. Patient states her left lower extremity is mildly swollen. No shortness of breath. Symptoms are mild to moderate in intensity no specific worsening or improving factors. Daughter at bedside. They voiced no other complaints or concerns at this time. Timing/Duration: today Activities at Onset: none Quality: aching Location: substernal Chest Pain Radiation: neck Severity of Pain-Max: moderate Severity of Pain-Current: mild Modifying Factors: Improves With: nothing Associated Symptoms: denies symptoms Prior Chest Pain/Cardiac Workup: no prior chest pain Nitro Today/Relief: no nitro taken today Aspirin Treatment Today: no aspirin today Allergies/Adverse Reactions: No Known Drug Allergies Allergy (Verified 07/17/20 13:30) Home Medications: No Reportable Medications [No Reported Medications] 12/20/20 [History] Hx Tetanus, Diphtheria Vaccination/Date Given: No Hx Influenza Vaccination/Date Given: No Hx Pneumococcal Vaccination/Date Given: No Immunizations Up to Date: No Travel Risk - International Travel Have you traveled outside of the country in past 3 weeks: No - Coronavirus Screening Are you exhibiting any of the following symptoms?: No Close contact with a COVID-19 positive Pt in past 14-21 Days: No - Vaccine Status Have you recieved a Covid-19 vaccination: No Spiritual Counselor: Moderna - Vaccination Dates Date of 2cond Vaccination (if applicable): july - Review of Systems Constitutional: No Symptoms, No Fever, No Chills Eyes: No Symptoms Ears, Nose, & Throat: No Symptoms Respiratory: No Symptoms, No Cough, No Dyspnea Cardiac: No Symptoms, No Chest Pain, No Edema, No Syncope Abdominal/Gastrointestinal: No Symptoms, No Abdominal Pain, No Nausea, No Vomiting, No Diarrhea Genitourinary Symptoms: No Symptoms, No Dysuria Musculoskeletal: No Symptoms, No Back Pain, No Neck Pain Skin: No Symptoms, No Rash Neurological: No Symptoms, No Dizziness, No Focal Weakness, No Sensory Changes Psychological: No Symptoms Endocrine: No Symptoms Hematologic/Lymphatic: No Symptoms Immunological/Allergic: No Symptoms All Other Systems: Reviewed and Negative - Past Medical History Pertinent Past Medical History: Yes Neurological History: No Pertinent History ENT History: Cataracts Cardiac History: Arrhythmia, Hypertension Respiratory History: No Pertinent History Endocrine Medical History: Other Musculoskeletal History: Osteoarthritis GI Medical History: No Pertinent History History: No Pertinent History Psycho-Social History: No Pertinent History Female Reproductive Disorders: No Pertinent History Other Medical History: bradycardia, Pacemaker, UTI, - Past Surgical History Past Surgical History: Yes Neuro Surgical History: No Pertinent History Cardiac: Pacemaker Respiratory: No Pertinent History Gastrointestinal: No Pertinent History Genitourinary: No Pertinent History Musculoskeletal: No Pertinent History Female Surgical History: No Pertinent History Other Surgical History: BACK SURGERY--LUMBAR - Social History Smoking Status: Never smoker Exposure to second hand smoke: No Drug Use: none Patient Lives Alone: No Significant Family History: heart disease - Nursing Vital Signs Nursing Vital Signs: Initial Vital Signs Temperature 96.1 F 12/20/20 10:28 Pulse Rate 70 12/20/20 10:28 Respiratory Rate 16 12/20/20 10:28 Blood Pressure 173/83 12/20/20 10:28 O2 Sat by Pulse Oximetry 100 12/20/20 10:28 Pain Scale Pain Intensity 0 - Physical Exam General Appearance: no apparent distress, alert Eye Exam: PERRL/EOMI, eyes nml inspection Ears, Nose, Throat Exam: normal ENT inspection, moist mucous membranes Neck Exam: normal inspection, non-tender, supple, full range of motion Respiratory Exam: normal breath sounds, lungs clear, No respiratory distress Cardiovascular Exam: regular rate/rhythm, normal heart sounds Gastrointestinal/Abdomen Exam: soft, No tenderness, No mass Back Exam: normal inspection, No CVA tenderness, No vertebral tenderness Extremity Exam: normal inspection, normal range of motion, other (Left lower extremity minimally more swollen than the right. Will obtain an ultrasound to rule out DVT.) Neurologic Exam: alert, oriented x 3, cooperative, normal mood/affect, sensation nml, No motor deficits Skin Exam: normal color, warm, dry SpO2: 100 - Course Nursing assessment & vital signs reviewed: Yes EKG Interpreted by Me: RATE (63, paced rhythm. Left ventricular hypertrophy.), NORMAL AXIS, NORMAL INTERVALS - Radiology Exams Chest X-ray Interpretation: Teleradiologist Report (Hyperinflated and clear with incidental pulmonary/hilar calcified granuloma. Heart not enlarged with new left dual-lead pacemaker. Bony thorax intact mild osteopenia degenerative changes.) - Radiology Ultrasound Exam Venous Lower Extremity Ultrasound: tele radiology report (No thrombus seen and examined deep vessels of the left leg. Negative DVT.) Ordered Tests: Active Orders 24 hr Category Date Time Status Publications Manager STAT Care 12/20/20 10:29 Active EKG-ER Only STAT Care 12/20/20 10:29 Active IV Insertion STAT Care 12/20/20 10:29 Active Pulse Oximetry (ED) STAT Care 12/20/20 10:29 Active CHEST 1 VIEW (PORTABLE) Stat Exams 12/20/20 10:29 Completed VENOUS UNILAT/LIMITED EXTREMIT [US] Stat Exams 12/20/20 12:10 Completed BNP [NT PRO BNP] Stat Lab 12/20/20 12:13 Completed CBC W DIFF Stat Lab 12/20/20 10:35 Completed CMP Stat Lab 12/20/20 10:35 Completed CULTURE,URINE Stat Lab 12/20/20 10:44 Received TROPONIN Q3H Lab 12/20/20 10:35 Completed TROPONIN Q3H Lab 12/20/20 13:40 Completed TROPONIN Q3H Lab 12/20/20 16:30 Ordered TROPONIN Q3H Lab 12/20/20 19:30 Ordered TROPONIN Q3H Lab 12/20/20 22:30 Ordered UA W/RFX UR CULTURE Stat Lab 12/20/20 10:44 Completed Medication Summary Discontinued Medications Generic Name Dose Route Start Last Admin Trade Name Freq PRN Reason Stop Dose Admin Aspirin 324 mg 12/20/20 12:08 12/20/20 12:25 Baby Aspirin 81 Mg Chew PO 12/20/20 12:09 324 mg STAT ONE Administration Aspirin Confirm 12/20/20 12:12 Baby Aspirin 81 Mg Chew Administered 12/20/20 12:13 Dose 324 mg .ROUTE .STK-MED ONE Ceftriaxone Sodium/Dextrose 1 g in 50 mls @ 100 mls/hr 12/20/20 11:49 12/20/20 13:38 Rocephin 1 Gm-D5w 50 Ml Bag IV 12/20/20 12:18 Infused STAT ONE Infusion Ceftriaxone Sodium/Dextrose Confirm 12/20/20 12:12 Rocephin 1 Gm-D5w 50 Ml Bag Administered 12/20/20 12:13 Dose 1 g in 50 mls @ ud IV .STK-MED ONE Nitroglycerin 1 gm 12/20/20 12:09 12/20/20 12:25 Nitro-Bid 2% Ud Packets TOP 12/20/20 12:10 1 gm STAT ONE Administration Nitroglycerin Confirm 12/20/20 12:12 Nitro-Bid 2% Ud Packets Administered 12/20/20 12:13 Dose 1 gm .ROUTE .STK-MED ONE Lab/Rad Data: Laboratory Result Diagrams 12/20/20 10:35 12/20/20 10:35 Laboratory Results 12/20/20 12/20/20 12/20/20 Range/Units 13:40 12:50 12:13 WBC (4.0-10.5) K/mm3 RBC (4.1-5.4) M/mm3 Hgb (12.0-16.0) gm/dl Hct (35-47) % MCV (78-100) fl MCH (26-32) pg MCHC (32-36) g/dl RDW (11.5-14.0) % Plt Count (150-450) K/mm3 MPV (7.5-11.0) fl Gran % (36.0-66.0) % Eos # (Auto) (0-0.5) Absolute Lymphs (auto) (1.0-4.6) Absolute Monos (auto) (0.0-1.3) Lymphocytes % (24.0-44.0) % Monocytes % (0.0-12.0) % Eosinophils % (0.00-5.0) % Basophils % (0.0-0.4) % Absolute Granulocytes (1.4-6.9) Basophils # (0-0.4) Sodium (137-145) mmol/L Potassium (3.5-5.1) mmol/L Chloride (98-107) mmol/L Carbon Dioxide (22-30) mmol/L Anion Gap (5-15) MEQ/L BUN (7-17) mg/dL Creatinine (0.52-1.04) mg/dL Estimated GFR ML/MIN Glucose (74-106) mg/dL Calcium (8.4-10.2) mg/dL Total Bilirubin (0.2-1.3) mg/dL AST (14-36) U/L ALT (0-35) U/L Alkaline Phosphatase (38-126) U/L Troponin I < 0.012 (0.000-0.034) ng/mL NT-Pro-B Natriuret Pep 628 (0-1800) pg/mL Serum Total Protein (6.3-8.2) g/dL Albumin (3.5-5.0) g/dL Urine Color (YELLOW) Urine Appearance (CLEAR) Urine pH (5-6) Ur Specific [place] (1.005-1.025) Urine Protein (Negative) Urine Ketones (NEGATIVE) Urine Blood (0-5) Lee/ul Urine Nitrite (NEGATIVE) Urine Bilirubin (NEGATIVE) Urine Urobilinogen (0-1) mg/dL Ur Leukocyte Esterase (NEGATIVE) Urine WBC (Auto) (0-5) /HPF Urine RBC (Auto) (0-2) /HPF U Epithel Cells (Auto) (FEW) /HPF Urine Bacteria (Auto) (NEGATIVE) /HPF Urine Mucus (Auto) (NEGATIVE) /HPF Urine Culture Reflexed (NO) Urine Glucose (NEGATIVE) mg/dL SARS-CoV-2 (PCR) NEGATIVE (NEGATIVE) 12/20/20 12/20/20 12/20/20 Range/Units 10:44 10:35 10:35 WBC (4.0-10.5) K/mm3 RBC (4.1-5.4) M/mm3 Hgb (12.0-16.0) gm/dl Hct (35-47) % MCV (78-100) fl MCH (26-32) pg MCHC (32-36) g/dl RDW (11.5-14.0) % Plt Count (150-450) K/mm3 MPV (7.5-11.0) fl Gran % (36.0-66.0) % Eos # (Auto) (0-0.5) Absolute Lymphs (auto) (1.0-4.6) Absolute Monos (auto) (0.0-1.3) Lymphocytes % (24.0-44.0) % Monocytes % (0.0-12.0) % Eosinophils % (0.00-5.0) % Basophils % (0.0-0.4) % Absolute Granulocytes (1.4-6.9) Basophils # (0-0.4) Sodium 132 L (137-145) mmol/L Potassium 4.2 (3.5-5.1) mmol/L Chloride 97 L (98-107) mmol/L Carbon Dioxide 26 (22-30) mmol/L Anion Gap 12.7 (5-15) MEQ/L BUN 15 (7-17) mg/dL Creatinine 0.70 (0.52-1.04) mg/dL Estimated GFR > 60.0 ML/MIN Glucose 81 (74-106) mg/dL Calcium 9.2 (8.4-10.2) mg/dL Total Bilirubin 0.60 (0.2-1.3) mg/dL AST 26 (14-36) U/L ALT 13 (0-35) U/L Alkaline Phosphatase 60 (38-126) U/L Troponin I < 0.012 (0.000-0.034) ng/mL NT-Pro-B Natriuret Pep (0-1800) pg/mL Serum Total Protein 7.0 (6.3-8.2) g/dL Albumin 4.0 (3.5-5.0) g/dL Urine Color YELLOW (YELLOW) Urine Appearance SLIGHTLY CLOUDY (CLEAR) Urine pH 7.0 (5-6) Ur Specific [place] 1.010 (1.005-1.025) Urine Protein NEGATIVE (Negative) Urine Ketones NEGATIVE (NEGATIVE) Urine Blood SMALL (0-5) Lee/ul Urine Nitrite POSITIVE (NEGATIVE) Urine Bilirubin NEGATIVE (NEGATIVE) Urine Urobilinogen NEGATIVE (0-1) mg/dL Ur Leukocyte Esterase LARGE (NEGATIVE) Urine WBC (Auto) >100 (0-5) /HPF Urine RBC (Auto) 3-5 (0-2) /HPF U Epithel Cells (Auto) NONE (FEW) /HPF Urine Bacteria (Auto) MODERATE (NEGATIVE) /HPF Urine Mucus (Auto) SLIGHT (NEGATIVE) /HPF Urine Culture Reflexed YES (NO) Urine Glucose NEGATIVE (NEGATIVE) mg/dL SARS-CoV-2 (PCR) (NEGATIVE) 12/20/20 Range/Units 10:35 WBC 6.5 (4.0-10.5) K/mm3 RBC 3.65 L (4.1-5.4) M/mm3 Hgb 11.6 L (12.0-16.0) gm/dl Hct 36.4 (35-47) % MCV 99.7 (78-100) fl MCH 31.8 (26-32) pg MCHC 31.9 L (32-36) g/dl RDW 13.1 (11.5-14.0) % Plt Count 256 (150-450) K/mm3 MPV 9.3 (7.5-11.0) fl Gran % 49.5 (36.0-66.0) % Eos # (Auto) 0.06 (0-0.5) Absolute Lymphs (auto) 2.53 (1.0-4.6) Absolute Monos (auto) 0.67 (0.0-1.3) Lymphocytes % 39.0 (24.0-44.0) % Monocytes % 10.3 (0.0-12.0) % Eosinophils % 0.9 (0.00-5.0) % Basophils % 0.3 (0.0-0.4) % Absolute Granulocytes 3.21 (1.4-6.9) Basophils # 0.02 (0-0.4) Sodium (137-145) mmol/L Potassium (3.5-5.1) mmol/L Chloride (98-107) mmol/L Carbon Dioxide (22-30) mmol/L Anion Gap (5-15) MEQ/L BUN (7-17) mg/dL Creatinine (0.52-1.04) mg/dL Estimated GFR ML/MIN Glucose (74-106) mg/dL Calcium (8.4-10.2) mg/dL Total Bilirubin (0.2-1.3) mg/dL AST (14-36) U/L ALT (0-35) U/L Alkaline Phosphatase (38-126) U/L Troponin I (0.000-0.034) ng/mL NT-Pro-B Natriuret Pep (0-1800) pg/mL Serum Total Protein (6.3-8.2) g/dL Albumin (3.5-5.0) g/dL Urine Color (YELLOW) Urine Appearance (CLEAR) Urine pH (5-6) Ur Specific [place] (1.005-1.025) Urine Protein (Negative) Urine Ketones (NEGATIVE) Urine Blood (0-5) Lee/ul Urine Nitrite (NEGATIVE) Urine Bilirubin (NEGATIVE) Urine Urobilinogen (0-1) mg/dL Ur Leukocyte Esterase (NEGATIVE) Urine WBC (Auto) (0-5) /HPF Urine RBC (Auto) (0-2) /HPF U Epithel Cells (Auto) (FEW) /HPF Urine Bacteria (Auto) (NEGATIVE) /HPF Urine Mucus (Auto) (NEGATIVE) /HPF Urine Culture Reflexed (NO) Urine Glucose (NEGATIVE) mg/dL SARS-CoV-2 (PCR) (NEGATIVE) - Progress Progress: improved Air Movement: good Progress Note: Dr. Thrasher review the EKG and states that it is likely artifact and not a true ST elevation. 12/20/20 12:06 12/20/20 14:29 Covid negative. Will admit to Dr. Kohler Blood Culture(s) Obtained: No Antibiotics given: No Discussed with : Jill Will see patient in: hospital (observation) Counseled pt/family regarding: lab results, diagnosis, rad results - Departure Clinical Impression: ACS (acute coronary syndrome), Osteopenia, Arthritis of spine, UTI (urinary tract infection) Condition: Stable Critical Care Time: No Referrals: SOO DOWNEY [Primary Care Provider] -
[2020-12-20 11:34] LABS: Appearance SLIGHTLY CLOUDY (CLEAR); Bacteria MODERATE /HPF (NEGATIVE); Bilirubin NEGATIVE (NEGATIVE); Blood SMALL Ery/ul (0-5); Glucose NEGATIVE (NEGATIVE); Ketones NEGATIVE (NEGATIVE); Leukocyte Esterase LARGE (NEGATIVE); Mucus SLIGHT /HPF (NEGATIVE); Nitrite POSITIVE (NEGATIVE); Protein,Urine Dip NEGATIVE (Negative); Urobilinogen NEGATIVE mg/dL (0-1); WBC >100 /HPF (0-5)
[2020-12-20] MEDS ORDERED: ROCEPHIN 1 Gm-D5w 50 ml Bag** 1 G/50 ML IVPB IV ONE ×2 (11:49→12:12)
[2020-12-20] MEDS ORDERED: BABY ASPIRIN 81 MG CHEW PO ONE (12:08)
[2020-12-20] MEDS ORDERED: NITRO-BID 2% UD PACKETS TOP ONE (12:09)
[2020-12-20] MEDS ORDERED: BABY ASPIRIN 81 MG CHEW ONE (12:12)
[2020-12-20] MEDS ORDERED: NITRO-BID 2% UD PACKETS ONE (12:12)
--- NOTE | 2020-12-20 12:54 | XRAY ---
Indication: Chest pain. DVT. Two-dimensional sonogram and color Doppler imaging of the major venous vessels of the left leg performed. Comparison: None No thrombus seen in the examined deep venous vessels of the left leg including greater saphenous vein. Veins demonstrate normal compressibility. Venous waveforms are normal with and without augmentation. Impression: Left leg negative for DVT.
[2020-12-20] MEDS ORDERED: MAALOX ES 30 ML UNIT DOSE PO PRN (14:45)
[2020-12-20] MEDS ORDERED: MILK OF MAGNESIA 30 ML PO PRN (14:45)
[2020-12-20] MEDS ORDERED: Senokot-S Tablet PO PRN (14:45)
[2020-12-20] MEDS: TYLENOL 325 MG PO PRN (20:43)
[2020-12-21] MEDS: TYLENOL 325 MG PO PRN ×2 (01:01→06:48)
[2020-12-21] MEDS ORDERED: HYDROCODONE-ACETAMIN 10-325 MG PO PRN (05:27)
[2020-12-21 06:01] LABS: Risk Ratio 3.6
[2020-12-21 06:55] VITALS: PULSE 72
--- NOTE | 2020-12-21 08:47 | PCM.SSS ---
History of Present Illness - Chief Complaint Chief Complaint: R/O chest pain History of Present Illness: is a 85 year old female pt of mine from [facility] with GERD, migraines, and Alzheimer's dementia who was admitted through ER with chest pain yesterday. She was in the car as a passenger and c/o substernal cp per ER note (pt does not remember this). In ER the pain had decreased to 4/10. Her EKG had slight ST elevations but nothing new, and Dr. Thrasher agreed that they were nonacute. Pt also found to have UTI with + nitrites on UA. Medications & Allergies Home Medications: Home Medication List Fluoxetine HCl 10 mg [Prozac 10 mg] 10 mg PO DAILY 12/20/20 [History Confirmed 12/20/20] Hydrocodone/Acetaminophen [Hydrocodone-Acetamin 10-325 mg] 0.5 tablet PO Q8HPRN PRN 12/20/20 [History Confirmed 12/20/20] lisinopriL [Zestril] 2.5 mg PO BID 12/20/20 [History Confirmed 12/20/20] Ceftriaxone Sod 1000 mg Inj [Rocephin 1000 MG INJ] 1 g IM DAILY #1 12/21/20 [Rx] Allergies/Adverse Reactions: Allergies Allergy/AdvReac Type Severity Reaction Status Date / Time No Known Drug Allergies Allergy Verified 12/20/20 14:45 - Past Medical History Past Medical History: Yes Neurological History: No Pertinent History ENT History: Cataracts Cardiac History: Arrhythmia, Hypertension Respiratory History: No Pertinent History Endocrine Medical History: Other Musculoskelatal History: Osteoarthritis GI Medical History: No Pertinent History History: No Pertinent History Pyscho-Social History: No Pertinent History Reproductive Disorders: No Pertinent History Comment: bradycardia, Pacemaker, UTI, - Female History Hx Last Menstrual Period: postmenopausal Are you now?: No - Past Surgical History Past Surgical History: Yes Neuro Surgical History: No Pertinent History Cardiac History: Pacemaker Respiratory Surgery: No Pertinent History GI Surgical History: No Pertinent History Genitourinary Surgical Hx: No Pertinent History Musculskeletal Surgical Hx: No Pertinent History Female Surgical History: No Pertinent History Other Surgical History: BACK SURGERY--LUMBAR - Social History Smoking Status: Former smoker Exposure to second hand smoke: No Alcohol: None Drug Use: none Significant Family History: heart disease - Physical Exam Vital Signs: Vital Signs - 24 hr Temp Pulse Pulse Resp BP Pulse Ox 12/21/20 08:29 161/85 12/21/20 06:54 98.4 F 72 16 177/83 98 12/21/20 04:00 98.4 F 65 18 169/77 97 12/21/20 00:00 98.5 F 69 17 169/70 94 L 12/20/20 19:54 98.2 F 71 17 147/61 96 12/20/20 14:54 98.5 F 66 18 161/88 100 12/20/20 14:30 100 12/20/20 14:06 70 16 173/77 99 12/20/20 13:42 62 16 157/61 100 12/20/20 12:14 60 13 169/77 96 12/20/20 11:47 70 18 168/60 98 12/20/20 10:37 100 12/20/20 10:28 96.1 F 65 70 16 173/83 100 General Appearance: no apparent distress, alert Neurologic Exam: cooperative, normal mood/affect Eye Exam: eyes nml inspection Ears, Nose, Throat Exam: moist mucous membranes Neck Exam: normal inspection Respiratory Exam: normal breath sounds, lungs clear, No crackles/rales, No rhonchi, No wheezing Cardiovascular Exam: regular rate/rhythm, normal heart sounds, No murmur Gastrointestinal/Abdomen Exam: soft, normal bowel sounds, tenderness (G eneralized mild ttp), No distention, No mass, No guarding, No rebound Extremity Exam: swelling (1+ edema LLE) Skin Exam: normal color, warm, dry, No rash Results - Labs Lab/Micro Results: Lab Results-Last 24 Hours 12/20/20 12/20/20 12/20/20 Range/Units 10:35 10:35 10:35 WBC 6.5 (4.0-10.5) K/mm3 RBC 3.65 L (4.1-5.4) M/mm3 Hgb 11.6 L (12.0-16.0) gm/dl Hct 36.4 (35-47) % MCV 99.7 (78-100) fl MCH 31.8 (26-32) pg MCHC 31.9 L (32-36) g/dl RDW 13.1 (11.5-14.0) % Plt Count 256 (150-450) K/mm3 MPV 9.3 (7.5-11.0) fl Gran % 49.5 (36.0-66.0) % Eos # (Auto) 0.06 (0-0.5) Absolute Lymphs (auto) 2.53 (1.0-4.6) Absolute Monos (auto) 0.67 (0.0-1.3) Lymphocytes % 39.0 (24.0-44.0) % Monocytes % 10.3 (0.0-12.0) % Eosinophils % 0.9 (0.00-5.0) % Basophils % 0.3 (0.0-0.4) % Absolute Granulocytes 3.21 (1.4-6.9) Basophils # 0.02 (0-0.4) Sodium 132 L (137-145) mmol/L Potassium 4.2 (3.5-5.1) mmol/L Chloride 97 L (98-107) mmol/L Carbon Dioxide 26 (22-30) mmol/L Anion Gap 12.7 (5-15) MEQ/L BUN 15 (7-17) mg/dL Creatinine 0.70 (0.52-1.04) mg/dL Estimated GFR > 60.0 ML/MIN Glucose 81 (74-106) mg/dL Calcium 9.2 (8.4-10.2) mg/dL Total Bilirubin 0.60 (0.2-1.3) mg/dL AST 26 (14-36) U/L ALT 13 (0-35) U/L Alkaline Phosphatase 60 (38-126) U/L Troponin I < 0.012 (0.000-0.034) ng/mL NT-Pro-B Natriuret Pep (0-1800) pg/mL Serum Total Protein 7.0 (6.3-8.2) g/dL Albumin 4.0 (3.5-5.0) g/dL Triglycerides (30-150) mg/dL Cholesterol (50-200) mg/dL LDL Cholesterol (30-100) mg/dL HDL Cholesterol (40-60) mg/dL Heart Disease Risk Ratio Urine Color (YELLOW) Urine Appearance (CLEAR) Urine pH (5-6) Ur Specific [place] (1.005-1.025) Urine Protein (Negative) Urine Ketones (NEGATIVE) Urine Blood (0-5) Lee/ul Urine Nitrite (NEGATIVE) Urine Bilirubin (NEGATIVE) Urine Urobilinogen (0-1) mg/dL Ur Leukocyte Esterase (NEGATIVE) Urine WBC (Auto) (0-5) /HPF Urine RBC (Auto) (0-2) /HPF U Epithel Cells (Auto) (FEW) /HPF Urine Bacteria (Auto) (NEGATIVE) /HPF Urine Mucus (Auto) (NEGATIVE) /HPF Urine Culture Reflexed (NO) Urine Glucose (NEGATIVE) mg/dL SARS-CoV-2 (PCR) (NEGATIVE) 12/20/20 12/20/20 12/20/20 Range/Units 10:44 12:13 12:50 WBC (4.0-10.5) K/mm3 RBC (4.1-5.4) M/mm3 Hgb (12.0-16.0) gm/dl Hct (35-47) % MCV (78-100) fl MCH (26-32) pg MCHC (32-36) g/dl RDW (11.5-14.0) % Plt Count (150-450) K/mm3 MPV (7.5-11.0) fl Gran % (36.0-66.0) % Eos # (Auto) (0-0.5) Absolute Lymphs (auto) (1.0-4.6) Absolute Monos (auto) (0.0-1.3) Lymphocytes % (24.0-44.0) % Monocytes % (0.0-12.0) % Eosinophils % (0.00-5.0) % Basophils % (0.0-0.4) % Absolute Granulocytes (1.4-6.9) Basophils # (0-0.4) Sodium (137-145) mmol/L Potassium (3.5-5.1) mmol/L Chloride (98-107) mmol/L Carbon Dioxide (22-30) mmol/L Anion Gap (5-15) MEQ/L BUN (7-17) mg/dL Creatinine (0.52-1.04) mg/dL Estimated GFR ML/MIN Glucose (74-106) mg/dL Calcium (8.4-10.2) mg/dL Total Bilirubin (0.2-1.3) mg/dL AST (14-36) U/L ALT (0-35) U/L Alkaline Phosphatase (38-126) U/L Troponin I (0.000-0.034) ng/mL NT-Pro-B Natriuret Pep 628 (0-1800) pg/mL Serum Total Protein (6.3-8.2) g/dL Albumin (3.5-5.0) g/dL Triglycerides (30-150) mg/dL Cholesterol (50-200) mg/dL LDL Cholesterol (30-100) mg/dL HDL Cholesterol (40-60) mg/dL Heart Disease Risk Ratio Urine Color YELLOW (YELLOW) Urine Appearance SLIGHTLY CLOUDY (CLEAR) Urine pH 7.0 (5-6) Ur Specific [place] 1.010 (1.005-1.025) Urine Protein NEGATIVE (Negative) Urine Ketones NEGATIVE (NEGATIVE) Urine Blood SMALL (0-5) Lee/ul Urine Nitrite POSITIVE (NEGATIVE) Urine Bilirubin NEGATIVE (NEGATIVE) Urine Urobilinogen NEGATIVE (0-1) mg/dL Ur Leukocyte Esterase LARGE (NEGATIVE) Urine WBC (Auto) >100 (0-5) /HPF Urine RBC (Auto) 3-5 (0-2) /HPF U Epithel Cells (Auto) NONE (FEW) /HPF Urine Bacteria (Auto) MODERATE (NEGATIVE) /HPF Urine Mucus (Auto) SLIGHT (NEGATIVE) /HPF Urine Culture Reflexed YES (NO) Urine Glucose NEGATIVE (NEGATIVE) mg/dL SARS-CoV-2 (PCR) NEGATIVE (NEGATIVE) 12/20/20 12/20/20 12/20/20 Range/Units 13:40 16:30 19:30 WBC (4.0-10.5) K/mm3 RBC (4.1-5.4) M/mm3 Hgb (12.0-16.0) gm/dl Hct (35-47) % MCV (78-100) fl MCH (26-32) pg MCHC (32-36) g/dl RDW (11.5-14.0) % Plt Count (150-450) K/mm3 MPV (7.5-11.0) fl Gran % (36.0-66.0) % Eos # (Auto) (0-0.5) Absolute Lymphs (auto) (1.0-4.6) Absolute Monos (auto) (0.0-1.3) Lymphocytes % (24.0-44.0) % Monocytes % (0.0-12.0) % Eosinophils % (0.00-5.0) % Basophils % (0.0-0.4) % Absolute Granulocytes (1.4-6.9) Basophils # (0-0.4) Sodium (137-145) mmol/L Potassium (3.5-5.1) mmol/L Chloride (98-107) mmol/L Carbon Dioxide (22-30) mmol/L Anion Gap (5-15) MEQ/L BUN (7-17) mg/dL Creatinine (0.52-1.04) mg/dL Estimated GFR ML/MIN Glucose (74-106) mg/dL Calcium (8.4-10.2) mg/dL Total Bilirubin (0.2-1.3) mg/dL AST (14-36) U/L ALT (0-35) U/L Alkaline Phosphatase (38-126) U/L Troponin I < 0.012 < 0.012 < 0.012 (0.000-0.034) ng/mL NT-Pro-B Natriuret Pep (0-1800) pg/mL Serum Total Protein (6.3-8.2) g/dL Albumin (3.5-5.0) g/dL Triglycerides (30-150) mg/dL Cholesterol (50-200) mg/dL LDL Cholesterol (30-100) mg/dL HDL Cholesterol (40-60) mg/dL Heart Disease Risk Ratio Urine Color (YELLOW) Urine Appearance (CLEAR) Urine pH (5-6) Ur Specific [place] (1.005-1.025) Urine Protein (Negative) Urine Ketones (NEGATIVE) Urine Blood (0-5) Lee/ul Urine Nitrite (NEGATIVE) Urine Bilirubin (NEGATIVE) Urine Urobilinogen (0-1) mg/dL Ur Leukocyte Esterase (NEGATIVE) Urine WBC (Auto) (0-5) /HPF Urine RBC (Auto) (0-2) /HPF U Epithel Cells (Auto) (FEW) /HPF Urine Bacteria (Auto) (NEGATIVE) /HPF Urine Mucus (Auto) (NEGATIVE) /HPF Urine Culture Reflexed (NO) Urine Glucose (NEGATIVE) mg/dL SARS-CoV-2 (PCR) (NEGATIVE) 12/20/20 12/21/20 Range/Units 22:45 05:00 WBC (4.0-10.5) K/mm3 RBC (4.1-5.4) M/mm3 Hgb (12.0-16.0) gm/dl Hct (35-47) % MCV (78-100) fl MCH (26-32) pg MCHC (32-36) g/dl RDW (11.5-14.0) % Plt Count (150-450) K/mm3 MPV (7.5-11.0) fl Gran % (36.0-66.0) % Eos # (Auto) (0-0.5) Absolute Lymphs (auto) (1.0-4.6) Absolute Monos (auto) (0.0-1.3) Lymphocytes % (24.0-44.0) % Monocytes % (0.0-12.0) % Eosinophils % (0.00-5.0) % Basophils % (0.0-0.4) % Absolute Granulocytes (1.4-6.9) Basophils # (0-0.4) Sodium (137-145) mmol/L Potassium (3.5-5.1) mmol/L Chloride (98-107) mmol/L Carbon Dioxide (22-30) mmol/L Anion Gap (5-15) MEQ/L BUN (7-17) mg/dL Creatinine (0.52-1.04) mg/dL Estimated GFR ML/MIN Glucose (74-106) mg/dL Calcium (8.4-10.2) mg/dL Total Bilirubin (0.2-1.3) mg/dL AST (14-36) U/L ALT (0-35) U/L Alkaline Phosphatase (38-126) U/L Troponin I < 0.012 (0.000-0.034) ng/mL NT-Pro-B Natriuret Pep (0-1800) pg/mL Serum Total Protein (6.3-8.2) g/dL Albumin (3.5-5.0) g/dL Triglycerides 115 (30-150) mg/dL Cholesterol 241 H (50-200) mg/dL LDL Cholesterol 142 H (30-100) mg/dL HDL Cholesterol 67 H (40-60) mg/dL Heart Disease Risk Ratio 3.6 Urine Color (YELLOW) Urine Appearance (CLEAR) Urine pH (5-6) Ur Specific [place] (1.005-1.025) Urine Protein (Negative) Urine Ketones (NEGATIVE) Urine Blood (0-5) Lee/ul Urine Nitrite (NEGATIVE) Urine Bilirubin (NEGATIVE) Urine Urobilinogen (0-1) mg/dL Ur Leukocyte Esterase (NEGATIVE) Urine WBC (Auto) (0-5) /HPF Urine RBC (Auto) (0-2) /HPF U Epithel Cells (Auto) (FEW) /HPF Urine Bacteria (Auto) (NEGATIVE) /HPF Urine Mucus (Auto) (NEGATIVE) /HPF Urine Culture Reflexed (NO) Urine Glucose (NEGATIVE) mg/dL SARS-CoV-2 (PCR) (NEGATIVE) - Radiology Impressions Radiology Exams & Impressions: Radiology Procedures Category Date Time Status CHEST 1 VIEW (PORTABLE) Stat Exams 12/20/20 10:29 Completed VENOUS UNILAT/LIMITED EXTREMIT [US] Stat Exams 12/20/20 12:10 Completed - Other Procedures and Tests Respiratory Therapy 12/22/20 05:00 EKG ONCE 12/23/20 05:00 EKG ONCE Assessment/Plan (1) Chest pain Current Visit: Yes Status: Acute Qualifiers: Chest pain type: other chest pain Qualified Code(s): R07.89 - Other chest pain; R07.8 - Other chest pain Assessment & Plan: Troponin neg x 5. F/u outpatient. Code(s): R07.9 - CHEST PAIN, UNSPECIFIED (2) HTN (hypertension) Current Visit: Yes Status: Acute Qualifiers: Hypertension type: primary hypertension Qualified Code(s): I10 - Essential (primary) hypertension Assessment & Plan: Elevated here; to 147-169 systolic. Code(s): I10 - ESSENTIAL (PRIMARY) HYPERTENSION (3) UTI (urinary tract infection) Current Visit: Yes Status: Acute Qualifiers: Urinary tract infection type: acute cystitis Hematuria presence: without hematuria Qualified Code(s): N30.00 - Acute cystitis without hematuria Assessment & Plan: Culture is pending. Home today after rocephin; will order 1g IM rocephin in office or infusion tomorrow. Code(s): N39.0 - URINARY TRACT INFECTION, SITE NOT SPECIFIED Hospital Summary - Hospital Course Hospital Course: Pt is 85 yo female with dementia admitted through ER with CP. EKG nonacute and troponins neg x 5. UTI present; received 2 doses of IV rocephin here, and will go to office or infusion for 1 dose of IM rocephin tomorrow. Her UCx is still pending, but due to large amounts of Covid patients in the hospital, will go ahead and discharge to home. - Vitals & Intake/Output Vital Signs: Vital Signs Temperature 98.4 F 12/21/20 06:54 Pulse Rate 72 12/21/20 06:54 Respiratory Rate 16 12/21/20 06:54 Blood Pressure 161/85 12/21/20 08:29 O2 Sat by Pulse Oximetry 98 12/21/20 06:54 Intake & Output: Intake & Output 12/18/20 12/19/20 12/20/20 12/21/20 11:59 11:59 11:59 11:59 Intake Total 440 Balance 440 Weight 57.425 kg 54.6 kg - Lab Result Diagrams: 12/20/20 10:35 12/20/20 10:35 Lab Results-Last 24 Hrs: Lab Results-Last 24 Hours 12/20/20 12/20/20 12/20/20 Range/Units 10:35 10:35 10:35 WBC 6.5 (4.0-10.5) K/mm3 RBC 3.65 L (4.1-5.4) M/mm3 Hgb 11.6 L (12.0-16.0) gm/dl Hct 36.4 (35-47) % MCV 99.7 (78-100) fl MCH 31.8 (26-32) pg MCHC 31.9 L (32-36) g/dl RDW 13.1 (11.5-14.0) % Plt Count 256 (150-450) K/mm3 MPV 9.3 (7.5-11.0) fl Gran % 49.5 (36.0-66.0) % Eos # (Auto) 0.06 (0-0.5) Absolute Lymphs (auto) 2.53 (1.0-4.6) Absolute Monos (auto) 0.67 (0.0-1.3) Lymphocytes % 39.0 (24.0-44.0) % Monocytes % 10.3 (0.0-12.0) % Eosinophils % 0.9 (0.00-5.0) % Basophils % 0.3 (0.0-0.4) % Absolute Granulocytes 3.21 (1.4-6.9) Basophils # 0.02 (0-0.4) Sodium 132 L (137-145) mmol/L Potassium 4.2 (3.5-5.1) mmol/L Chloride 97 L (98-107) mmol/L Carbon Dioxide 26 (22-30) mmol/L Anion Gap 12.7 (5-15) MEQ/L BUN 15 (7-17) mg/dL Creatinine 0.70 (0.52-1.04) mg/dL Estimated GFR > 60.0 ML/MIN Glucose 81 (74-106) mg/dL Calcium 9.2 (8.4-10.2) mg/dL Total Bilirubin 0.60 (0.2-1.3) mg/dL AST 26 (14-36) U/L ALT 13 (0-35) U/L Alkaline Phosphatase 60 (38-126) U/L Troponin I < 0.012 (0.000-0.034) ng/mL NT-Pro-B Natriuret Pep (0-1800) pg/mL Serum Total Protein 7.0 (6.3-8.2) g/dL Albumin 4.0 (3.5-5.0) g/dL Triglycerides (30-150) mg/dL Cholesterol (50-200) mg/dL LDL Cholesterol (30-100) mg/dL HDL Cholesterol (40-60) mg/dL Heart Disease Risk Ratio Urine Color (YELLOW) Urine Appearance (CLEAR) Urine pH (5-6) Ur Specific [place] (1.005-1.025) Urine Protein (Negative) Urine Ketones (NEGATIVE) Urine Blood (0-5) Lee/ul Urine Nitrite (NEGATIVE) Urine Bilirubin (NEGATIVE) Urine Urobilinogen (0-1) mg/dL Ur Leukocyte Esterase (NEGATIVE) Urine WBC (Auto) (0-5) /HPF Urine RBC (Auto) (0-2) /HPF U Epithel Cells (Auto) (FEW) /HPF Urine Bacteria (Auto) (NEGATIVE) /HPF Urine Mucus (Auto) (NEGATIVE) /HPF Urine Culture Reflexed (NO) Urine Glucose (NEGATIVE) mg/dL SARS-CoV-2 (PCR) (NEGATIVE) 09/08/21 09/08/21 09/08/21 Range/Units 10:44 12:13 12:50 WBC (4.0-10.5) K/mm3 RBC (4.1-5.4) M/mm3 Hgb (12.0-16.0) gm/dl Hct (35-47) % MCV (78-100) fl MCH (26-32) pg MCHC (32-36) g/dl RDW (11.5-14.0) % Plt Count (150-450) K/mm3 MPV (7.5-11.0) fl Gran % (36.0-66.0) % Eos # (Auto) (0-0.5) Absolute Lymphs (auto) (1.0-4.6) Absolute Monos (auto) (0.0-1.3) Lymphocytes % (24.0-44.0) % Monocytes % (0.0-12.0) % Eosinophils % (0.00-5.0) % Basophils % (0.0-0.4) % Absolute Granulocytes (1.4-6.9) Basophils # (0-0.4) Sodium (137-145) mmol/L Potassium (3.5-5.1) mmol/L Chloride (98-107) mmol/L Carbon Dioxide (22-30) mmol/L Anion Gap (5-15) MEQ/L BUN (7-17) mg/dL Creatinine (0.52-1.04) mg/dL Estimated GFR ML/MIN Glucose (74-106) mg/dL Calcium (8.4-10.2) mg/dL Total Bilirubin (0.2-1.3) mg/dL AST (14-36) U/L ALT (0-35) U/L Alkaline Phosphatase (38-126) U/L Troponin I (0.000-0.034) ng/mL NT-Pro-B Natriuret Pep 628 (0-1800) pg/mL Serum Total Protein (6.3-8.2) g/dL Albumin (3.5-5.0) g/dL Triglycerides (30-150) mg/dL Cholesterol (50-200) mg/dL LDL Cholesterol (30-100) mg/dL HDL Cholesterol (40-60) mg/dL Heart Disease Risk Ratio Urine Color YELLOW (YELLOW) Urine Appearance SLIGHTLY CLOUDY (CLEAR) Urine pH 7.0 (5-6) Ur Specific [place] 1.010 (1.005-1.025) Urine Protein NEGATIVE (Negative) Urine Ketones NEGATIVE (NEGATIVE) Urine Blood SMALL (0-5) Lee/ul Urine Nitrite POSITIVE (NEGATIVE) Urine Bilirubin NEGATIVE (NEGATIVE) Urine Urobilinogen NEGATIVE (0-1) mg/dL Ur Leukocyte Esterase LARGE (NEGATIVE) Urine WBC (Auto) >100 (0-5) /HPF Urine RBC (Auto) 3-5 (0-2) /HPF U Epithel Cells (Auto) NONE (FEW) /HPF Urine Bacteria (Auto) MODERATE (NEGATIVE) /HPF Urine Mucus (Auto) SLIGHT (NEGATIVE) /HPF Urine Culture Reflexed YES (NO) Urine Glucose NEGATIVE (NEGATIVE) mg/dL SARS-CoV-2 (PCR) NEGATIVE (NEGATIVE) 12/20/20 12/20/20 12/20/20 Range/Units 13:40 16:30 19:30 WBC (4.0-10.5) K/mm3 RBC (4.1-5.4) M/mm3 Hgb (12.0-16.0) gm/dl Hct (35-47) % MCV (78-100) fl MCH (26-32) pg MCHC (32-36) g/dl RDW (11.5-14.0) % Plt Count (150-450) K/mm3 MPV (7.5-11.0) fl Gran % (36.0-66.0) % Eos # (Auto) (0-0.5) Absolute Lymphs (auto) (1.0-4.6) Absolute Monos (auto) (0.0-1.3) Lymphocytes % (24.0-44.0) % Monocytes % (0.0-12.0) % Eosinophils % (0.00-5.0) % Basophils % (0.0-0.4) % Absolute Granulocytes (1.4-6.9) Basophils # (0-0.4) Sodium (137-145) mmol/L Potassium (3.5-5.1) mmol/L Chloride (98-107) mmol/L Carbon Dioxide (22-30) mmol/L Anion Gap (5-15) MEQ/L BUN (7-17) mg/dL Creatinine (0.52-1.04) mg/dL Estimated GFR ML/MIN Glucose (74-106) mg/dL Calcium (8.4-10.2) mg/dL Total Bilirubin (0.2-1.3) mg/dL AST (14-36) U/L ALT (0-35) U/L Alkaline Phosphatase (38-126) U/L Troponin I < 0.012 < 0.012 < 0.012 (0.000-0.034) ng/mL NT-Pro-B Natriuret Pep (0-1800) pg/mL Serum Total Protein (6.3-8.2) g/dL Albumin (3.5-5.0) g/dL Triglycerides (30-150) mg/dL Cholesterol (50-200) mg/dL LDL Cholesterol (30-100) mg/dL HDL Cholesterol (40-60) mg/dL Heart Disease Risk Ratio Urine Color (YELLOW) Urine Appearance (CLEAR) Urine pH (5-6) Ur Specific [place] (1.005-1.025) Urine Protein (Negative) Urine Ketones (NEGATIVE) Urine Blood (0-5) Lee/ul Urine Nitrite (NEGATIVE) Urine Bilirubin (NEGATIVE) Urine Urobilinogen (0-1) mg/dL Ur Leukocyte Esterase (NEGATIVE) Urine WBC (Auto) (0-5) /HPF Urine RBC (Auto) (0-2) /HPF U Epithel Cells (Auto) (FEW) /HPF Urine Bacteria (Auto) (NEGATIVE) /HPF Urine Mucus (Auto) (NEGATIVE) /HPF Urine Culture Reflexed (NO) Urine Glucose (NEGATIVE) mg/dL SARS-CoV-2 (PCR) (NEGATIVE) 12/20/20 12/21/20 Range/Units 22:45 05:00 WBC (4.0-10.5) K/mm3 RBC (4.1-5.4) M/mm3 Hgb (12.0-16.0) gm/dl Hct (35-47) % MCV (78-100) fl MCH (26-32) pg MCHC (32-36) g/dl RDW (11.5-14.0) % Plt Count (150-450) K/mm3 MPV (7.5-11.0) fl Gran % (36.0-66.0) % Eos # (Auto) (0-0.5) Absolute Lymphs (auto) (1.0-4.6) Absolute Monos (auto) (0.0-1.3) Lymphocytes % (24.0-44.0) % Monocytes % (0.0-12.0) % Eosinophils % (0.00-5.0) % Basophils % (0.0-0.4) % Absolute Granulocytes (1.4-6.9) Basophils # (0-0.4) Sodium (137-145) mmol/L Potassium (3.5-5.1) mmol/L Chloride (98-107) mmol/L Carbon Dioxide (22-30) mmol/L Anion Gap (5-15) MEQ/L BUN (7-17) mg/dL Creatinine (0.52-1.04) mg/dL Estimated GFR ML/MIN Glucose (74-106) mg/dL Calcium (8.4-10.2) mg/dL Total Bilirubin (0.2-1.3) mg/dL AST (14-36) U/L ALT (0-35) U/L Alkaline Phosphatase (38-126) U/L Troponin I < 0.012 (0.000-0.034) ng/mL NT-Pro-B Natriuret Pep (0-1800) pg/mL Serum Total Protein (6.3-8.2) g/dL Albumin (3.5-5.0) g/dL Triglycerides 115 (30-150) mg/dL Cholesterol 241 H (50-200) mg/dL LDL Cholesterol 142 H (30-100) mg/dL HDL Cholesterol 67 H (40-60) mg/dL Heart Disease Risk Ratio 3.6 Urine Color (YELLOW) Urine Appearance (CLEAR) Urine pH (5-6) Ur Specific [place] (1.005-1.025) Urine Protein (Negative) Urine Ketones (NEGATIVE) Urine Blood (0-5) Lee/ul Urine Nitrite (NEGATIVE) Urine Bilirubin (NEGATIVE) Urine Urobilinogen (0-1) mg/dL Ur Leukocyte Esterase (NEGATIVE) Urine WBC (Auto) (0-5) /HPF Urine RBC (Auto) (0-2) /HPF U Epithel Cells (Auto) (FEW) /HPF Urine Bacteria (Auto) (NEGATIVE) /HPF Urine Mucus (Auto) (NEGATIVE) /HPF Urine Culture Reflexed (NO) Urine Glucose (NEGATIVE) mg/dL SARS-CoV-2 (PCR) (NEGATIVE) - Radiology Exams Ordered Rad Exams-Entire Visit: Radiology Procedures Category Date Time Status CHEST 1 VIEW (PORTABLE) Stat Exams 12/20/20 10:29 Completed VENOUS UNILAT/LIMITED EXTREMIT [US] Stat Exams 12/20/20 12:10 Completed - Procedures and Test Procedures and Tests throughout Hospitalization: Therapy Orders & Screens 12/20/20 18:31 EKG ONCE Comment: Diagnosis: R/O chest pain 12/21/20 05:00 EKG ONCE Comment: Diagnosis: R/O chest pain 12/22/20 05:00 EKG ONCE Comment: Diagnosis: R/O chest pain 12/23/20 05:00 EKG ONCE Comment: Diagnosis: R/O chest pain EKG Q8HX2,QAMX3,PRN Comment: - Discharge Disposition: Home, Self-Care Condition: Good Prescriptions: New Ceftriaxone Sod 1000 mg Inj [Rocephin 1000 MG INJ] 1 g IM DAILY #1 Continue Fluoxetine HCl 10 mg [Prozac 10 mg] 10 mg PO DAILY Hydrocodone/Acetaminophen [Hydrocodone-Acetamin 10-325 mg] 0.5 tablet PO Q8HPRN PRN PRN Reason: Pain lisinopriL [Zestril] 2.5 mg PO BID Follow up with: SOO DOWNEY [Primary Care Provider] -
[2020-12-21] MEDS ORDERED: Zestril 5 MG PO SCH (10:00)
[2020-12-21] MEDS ORDERED: ROCEPHIN 1 Gm-D5w 50 ml Bag** 1 G/50 ML IVPB IV SCH (10:00)
[2020-12-21] MEDS ORDERED: PROZAC 10 MG PO SCH (10:00)
[2020-12-21 11:48] VITALS: BP 147/66; O2SAT 96
== END 2020-12-21 13:23 | disposition home or self-care (01) ==
LOC: ED 10:24 → MED SURG 14:40
PROVIDERS: ADMIT Family Medicine; ATTEND Family Medicine
DX: R07.9 Chest pain, unspecified (principal); N39.0 Urinary tract infection, site not specified; I10 Essential (primary) hypertension; Z79.899 Other long term (current) drug therapy; Z20.822 Contact with and (suspected) exposure to COVID-19; M79.89 Other specified soft tissue disorders
CPT/HCPCS: 36000; 36415; 71045; 80053; 80061; 81001; 83721; 83880; 84484; 85025; 87077; 87086; 87186; 93005; 93041; 93268; 93971; 94760; 96365; 99285; G0378; U0003; J0696; A9270-GY

== ENCOUNTER 2021-03-07 14:33 | Emergency (ER) | payer MEDICARE, OTHER ==
--- NOTE | 2021-03-07 15:33 | ERPHSYRPT ---
- History of Present Illness Time Seen by Provider: 03/07/21 14:44 Historian: patient Exam Limitations: no limitations Patient Subjective Stated Complaint: Abdominal pain/constipation Triage Nursing Assessment: Patient brought into ED via EMS and transferred to bed per assist of 3. Patient A+O X 2, disoriented to time. Patient's skin pink, warm and dry. Patient states she was riding in the car and had to have a bowel movement and her abdomen hurt. Patient requesting to sit on commode after arrival. Patient currently denies pain or discomfort. Physician History: 85-year-old female with history of multiple medical problems including constipation presented in the ER with sudden onset abdominal discomfort and needs to defecate while she was riding in a car. Complaining of generalized abdominal discomfort with cramping which started to improve prior to arrival in the ER. Daughter reports she stopped taking stool softeners. Patient reports having bowel movements almost every day and last one was yesterday. Patient wanted to sit on the commode on presentation in the ER and had a bowel movement and her abdominal discomfort is relieved and no symptoms during my evaluation. Not a good historian and history is limited secondary to her dementia Timing/Duration: today Quality: cramping Abdominal Pain Onset Location: generalized abdomen Severity of Pain-Max: moderate Severity of Pain-Current: mild Associated Symptoms: denies symptoms Previous symptoms: same symptoms as today Allergies/Adverse Reactions: No Known Drug Allergies Allergy (Verified 03/07/21 14:35) Home Medications: Fluoxetine HCl 10 mg [Prozac 10 mg] 10 mg PO DAILY 12/20/20 [History] Hydrocodone/Acetaminophen [Hydrocodone-Acetamin 10-325 mg] 0.5 tablet PO Q8HPRN PRN 12/20/20 [History] lisinopriL [Zestril] 2.5 mg PO BID 12/20/20 [History] Hx Tetanus, Diphtheria Vaccination/Date Given: No Hx Influenza Vaccination/Date Given: No Hx Pneumococcal Vaccination/Date Given: No Immunizations Up to Date: Yes Travel Risk - International Travel Have you traveled outside of the country in past 3 weeks: No - Coronavirus Screening Are you exhibiting any of the following symptoms?: No Close contact with a COVID-19 positive Pt in past 14-21 Days: No - Vaccine Status Have you recieved a Covid-19 vaccination: Yes Field Representatives Director: Moderna - Vaccination Dates Date of 2cond Vaccination (if applicable): july - Review of Systems Constitutional: No Symptoms Eyes: No Symptoms Ears, Nose, & Throat: No Symptoms Respiratory: No Symptoms Cardiac: No Symptoms Abdominal/Gastrointestinal: Abdominal Pain, Constipation Genitourinary Symptoms: No Symptoms Musculoskeletal: Arthralgias Skin: No Symptoms Neurological: No Symptoms Endocrine: No Symptoms Hematologic/Lymphatic: No Symptoms - Past Medical History Pertinent Past Medical History: Yes Neurological History: No Pertinent History ENT History: Cataracts Cardiac History: Arrhythmia, Hypertension Respiratory History: No Pertinent History Endocrine Medical History: Other Musculoskeletal History: Osteoarthritis GI Medical History: No Pertinent History History: No Pertinent History Psycho-Social History: No Pertinent History Female Reproductive Disorders: No Pertinent History Other Medical History: bradycardia, Pacemaker, UTI, - Past Surgical History Past Surgical History: Yes Neuro Surgical History: No Pertinent History Cardiac: Pacemaker Respiratory: No Pertinent History Gastrointestinal: No Pertinent History Genitourinary: No Pertinent History Musculoskeletal: No Pertinent History Female Surgical History: No Pertinent History Other Surgical History: BACK SURGERY--LUMBAR - Social History Smoking Status: Former smoker Exposure to second hand smoke: No Drug Use: none Patient Lives Alone: No Significant Family History: heart disease - Female History Hx Now: No - Nursing Vital Signs Nursing Vital Signs: Initial Vital Signs Temperature 95.6 F 03/07/21 14:38 Pulse Rate 95 H 03/07/21 14:38 Respiratory Rate 18 03/07/21 14:38 Blood Pressure 164/72 03/07/21 14:38 O2 Sat by Pulse Oximetry 98 03/07/21 14:38 Pain Scale Pain Intensity 0 - Physical Exam General Appearance: no apparent distress Eye Exam: PERRL/EOMI Ears, Nose, Throat Exam: normal ENT inspection Neck Exam: normal inspection, supple, full range of motion Respiratory Exam: normal breath sounds, lungs clear Cardiovascular Exam: regular rate/rhythm, normal heart sounds Gastrointestinal/Abdomen Exam: soft, normal bowel sounds, No tenderness, No distention, No guarding Back Exam: normal inspection Extremity Exam: normal inspection, normal range of motion Neurologic Exam: alert, oriented x 3, cooperative, workday consultant II-XII nml as tested, normal mood/affect, sensation nml, No motor deficits Skin Exam: normal color SpO2 Interpretation: normal SpO2: 98 O2 Delivery: Room Air - Progress Progress: improved Progress Note: 03/07/21 15:32 Patient is asymptomatic on my evaluation. Having similar symptoms in the past which resolved with bowel movement. Do not think needs any other work-up and is stable for discharge. Recommended stool softener regularly. Outpatient follow-up. Counseled pt/family regarding: diagnosis, need for follow-up - Departure Departure Disposition: Home Clinical Impression: Constipation Qualifiers: Constipation type: unspecified constipation type Qualified Code(s): K59.00 - Constipation, unspecified Condition: Stable Critical Care Time: No Referrals: SOO DOWNEY [Primary Care Provider] - Follow up/PCP as directed (In 2 days for reevaluation) Instructions: Acute Abdomen (Belly Pain), Constipation, Adult (DC) Additional Instructions: Keep yourself well-hydrated, take daily stool softeners. Follow-up with primary care for reevaluation. Return to ER if having any abdominal pain, nausea vomiting etc.
[2021-03-07 15:38] VITALS: BP 173/63; PULSE 64; O2SAT 99
== END 2021-03-07 15:45 | disposition home or self-care (01) ==
LOC: ED 14:33
DX: K59.00 Constipation, unspecified (principal); F03.90 Unspecified dementia, unspecified severity, without behavioral disturbance, psychotic disturbance, mood disturbance, and anxiety; I10 Essential (primary) hypertension; Z79.891 Long term (current) use of opiate analgesic
CPT/HCPCS: 99283

== ENCOUNTER 2022-02-10 14:57 | Emergency (ER) | payer MEDICARE, OTHER ==
[2022-02-10] MEDS ORDERED: Zofran 4 MG/2 ML VIAL IV ONE (15:08)
[2022-02-10] MEDS ORDERED: Sodium Chloride 0.9% 1000 ML 1,000 ML IV SCH (15:15)
[2022-02-10] MEDS ORDERED: Sodium Chloride 0.9% 1000 ML 1,000 ML ONE (15:20)
[2022-02-10] MEDS ORDERED: Zofran 4 MG/2 ML VIAL ONE (15:20)
[2022-02-10] MEDS ORDERED: MORPHINE SULFATE 2 MG INJ ONE (15:20)
[2022-02-10] MEDS: MORPHINE SULFATE 2 MG INJ IV ONE ×2 (15:23→15:33)
--- NOTE | 2022-02-10 15:29 | ERPHSYRPT ---
- History of Present Illness Time Seen by Provider: 02/10/22 15:02 Historian: patient, family Exam Limitations: no limitations Patient Subjective Stated Complaint: PT BROUGHT IN BY FOR ABD PAIN AND NAUSEA FOR AN 30 MINS NOW,HE STATES SHE WENT UNRESPONSIVE FOR 2 MINS AND THEN VOMITED A LARGE ABOUT IN TRUCK. PT IS A POOR HISTORIAN Triage Nursing Assessment: PT ALERT, CONFUSED TO EVENTS, RESP EASY, SKIN W/D/P. ABD SOFT. PT HAS EMESIS ALL OVER HER, SHE WAS CLEANED UP AND ON BED PAIN TO HAVE A BM Physician History: 86 years old female with a history of hypertension, pacemaker placement presented in the ER with chief complaint of lower abdominal pain sudden onset almost 30 minutes prior to arrival with associated nausea and dry heaving. While in the car she was in moderate to severe sharp pain lower abdomen without any significant aggravating or relieving factors. Patient probably passed out for few seconds to minute due to severe pain and vomited afterwards. Patient report her pain is mildly better now but still significantly hurting. Denies any urinary complaints. No fever or chills reported. No chest pain palpitations or shortness of breath. No headache, dizziness or lightheadedness. No numbness tingling or focal weakness. Timing/Duration: hour(s) (0.5), constant, sudden, worse Activities at Onset: rest Quality: sharpness Abdominal Pain Onset Location: RLQ, LLQ, suprapubic Pain Radiation: no radiation Severity of Pain-Max: severe Severity of Pain-Current: moderate Modifying Factors: Improves With: nothing Associated Symptoms: nausea, vomiting Previous symptoms: no prior history Allergies/Adverse Reactions: No Known Drug Allergies Allergy (Verified 02/10/22 15:00) Home Medications: Fluoxetine HCl 10 mg [Prozac 10 mg] 10 mg PO DAILY 12/20/20 [History] Hydrocodone/Acetaminophen [Hydrocodone-Acetamin 10-325 mg] 0.5 tablet PO Q8HPRN PRN 12/20/20 [History] lisinopriL [Zestril] 2.5 mg PO BID 12/20/20 [History] Hx Tetanus, Diphtheria Vaccination/Date Given: No Hx Influenza Vaccination/Date Given: No Hx Pneumococcal Vaccination/Date Given: No Immunizations Up to Date: Yes Travel Risk - International Travel Have you traveled outside of the country in past 3 weeks: No - Coronavirus Screening Are you exhibiting any of the following symptoms?: No - Vaccine Status Have you recieved a Covid-19 vaccination: Yes Coding Specialist: Moderna - Vaccination Dates Date of 2cond Vaccination (if applicable): july - Review of Systems Constitutional: Fatigue Eyes: No Symptoms Ears, Nose, & Throat: No Symptoms Respiratory: No Symptoms Cardiac: No Symptoms Abdominal/Gastrointestinal: Abdominal Pain, Nausea, Vomiting Genitourinary Symptoms: No Symptoms Musculoskeletal: No Symptoms Skin: No Symptoms Neurological: Other (Syncope) Psychological: No Symptoms Endocrine: No Symptoms Hematologic/Lymphatic: No Symptoms Immunological/Allergic: No Symptoms - Past Medical History Pertinent Past Medical History: Yes Neurological History: No Pertinent History ENT History: Cataracts Cardiac History: Arrhythmia, Hypertension Respiratory History: No Pertinent History Endocrine Medical History: Other Musculoskeletal History: Osteoarthritis GI Medical History: No Pertinent History History: No Pertinent History Psycho-Social History: No Pertinent History Female Reproductive Disorders: No Pertinent History Other Medical History: bradycardia, Pacemaker, UTI, - Past Surgical History Past Surgical History: Yes Neuro Surgical History: No Pertinent History Cardiac: Pacemaker Respiratory: No Pertinent History Gastrointestinal: No Pertinent History Genitourinary: No Pertinent History Musculoskeletal: No Pertinent History Female Surgical History: No Pertinent History Other Surgical History: BACK SURGERY--LUMBAR - Social History Smoking Status: Former smoker Exposure to second hand smoke: No Drug Use: none Patient Lives Alone: No Significant Family History: heart disease - Nursing Vital Signs Nursing Vital Signs: Initial Vital Signs Temperature 97.2 F 02/10/22 15:12 Pulse Rate 61 02/10/22 15:12 Respiratory Rate 18 02/10/22 15:12 Blood Pressure 165/69 02/10/22 15:12 O2 Sat by Pulse Oximetry 16 L 02/10/22 15:12 Pain Scale Pain Intensity 1 - Physical Exam General Appearance: no apparent distress, alert Eye Exam: PERRL/EOMI, eyes nml inspection Ears, Nose, Throat Exam: normal ENT inspection, TMs normal, pharynx normal, moist mucous membranes Neck Exam: normal inspection, non-tender, supple, full range of motion Respiratory Exam: normal breath sounds, lungs clear Cardiovascular Exam: regular rate/rhythm, normal heart sounds Gastrointestinal/Abdomen Exam: soft, normal bowel sounds, tenderness (Lower abdomen with minimal guarding) Back Exam: normal inspection, normal range of motion, No CVA tenderness Extremity Exam: normal inspection, normal range of motion Neurologic Exam: alert, oriented x 3, cooperative, cardiology rn II-XII nml as tested, normal mood/affect, sensation nml Skin Exam: normal color SpO2 Interpretation: normal SpO2: 16 O2 Delivery: Room Air - Course EKG Interpreted by Me: RATE (60, paced rhythm), Left [place] Deviation, prolonged QT interval, Q-wave Ordered Tests: Active Orders 24 hr Category Date Time Status IV Insertion STAT Care 02/10/22 15:08 Active NPO (ED) STAT Care 02/10/22 15:08 Active ABDOMEN AND PELVIS W/0 CONTRAS [CT] Stat Exams 02/10/22 16:47 Taken HEAD WITHOUT CONTRAST [CT] Stat Exams 02/10/22 15:08 Taken CBC W DIFF Stat Lab 02/10/22 15:08 Completed CMP Stat Lab 02/10/22 15:08 Completed LIPASE Stat Lab 02/10/22 15:08 Completed Lactic Acid Stat Lab 02/10/22 15:15 Completed UA W/RFX CULTURE Stat Lab 02/10/22 17:17 Completed Medication Summary Generic Name Dose Route Start Last Admin Trade Name Freq PRN Reason Stop Dose Admin Sodium Chloride 1,000 mls @ 125 mls/hr 02/10/22 15:15 02/10/22 15:23 Sodium Chloride 0.9% 1000 Ml IV 03/12/22 15:14 125 mls/hr .Q8H EDDA Administration Discontinued Medications Generic Name Dose Route Start Last Admin Trade Name Freq PRN Reason Stop Dose Admin Morphine Sulfate 2 mg 02/10/22 15:08 02/10/22 15:33 Morphine Sulfate 2 Mg/Ml Inj IV 02/10/22 15:09 Not Given STAT ONE Morphine Sulfate Confirm 02/10/22 15:20 Morphine Sulfate 2 Mg/Ml Inj Administered 02/10/22 15:21 Dose 2 mg .ROUTE .STK-MED ONE Ondansetron HCl 4 mg 02/10/22 15:08 02/10/22 15:23 Ondansetron Hcl 4 Mg/2 Ml Vial IV 02/10/22 15:09 4 mg STAT ONE Administration Ondansetron HCl Confirm 02/10/22 15:20 Ondansetron Hcl 4 Mg/2 Ml Vial Administered 02/10/22 15:21 Dose 4 mg .ROUTE .STK-MED ONE Lab/Rad Data: Laboratory Result Diagrams 02/10/22 15:08 02/10/22 15:08 Laboratory Results 02/10/22 02/10/22 02/10/22 Range/Units 17:17 15:15 15:08 WBC (4.0-10.5) x10^3/uL RBC (4.1-5.4) x10^6/uL Hgb (12.0-16.0) g/dL Hct (35-47) % MCV (78-100) fL MCH (26-32) pg MCHC (32-36) g/dL RDW (11.5-14.0) % Plt Count (150-450) x10^3/uL MPV (7.5-11.0) fL Gran % (36.0-66.0) % Immature Gran % (Auto) (0.00-0.4) % Nucleat RBC Rel Count (0.00-0.1) % Eos # (Auto) (0-0.5) x10^3/uL Immature Gran # (Auto) (0.00-0.03) x10^3u/L Absolute Lymphs (auto) (1.0-4.6) x10^3/uL Absolute Monos (auto) (0.0-1.3) x10^3/uL Absolute Nucleated RBC (0.00-0.01) x10^3u/L Lymphocytes % (24.0-44.0) % Monocytes % (0.0-12.0) % Eosinophils % (0.00-5.0) % Basophils % (0.0-0.4) % Absolute Granulocytes (1.4-6.9) x10^3/uL Basophils # (0-0.4) x10^3/uL Sodium 132 L (137-145) mmol/L Potassium 3.6 (3.5-5.1) mmol/L Chloride 99 (98-107) mmol/L Carbon Dioxide 25 (22-30) mmol/L Anion Gap 11.7 (5-15) MEQ/L BUN 21 H (7-17) mg/dL Creatinine 0.94 (0.52-1.04) mg/dL Estimated GFR 59.7 ML/MIN Glucose 121 H (74-106) mg/dL Lactic Acid 2.3 H (0.4-2.0) Calcium 9.2 (8.4-10.2) mg/dL Total Bilirubin 0.60 (0.2-1.3) mg/dL AST 29 (14-36) U/L ALT 17 (0-35) U/L Alkaline Phosphatase 73 (38-126) U/L Serum Total Protein 7.3 (6.3-8.2) g/dL Albumin 4.1 (3.5-5.0) g/dL Lipase 115 (23-300) U/L Urinalys Dipstick Clnc MAIN LAB Urine Color YELLOW (YELLOW) Urine Appearance CLEAR (CLEAR) Urine pH 5.5 (5-6) Ur Specific Allison 1.020 (1.005-1.025) POC Urine Protein Conf NEGATIVE (Negative) Urine Ketones NEGATIVE (NEGATIVE) Urine Nitrite NEGATIVE (NEGATIVE) Urine Bilirubin NEGATIVE (NEGATIVE) Urine Urobilinogen 0.2 (0-1) mg/dL Urine Leukocytes NEGATIVE (NEGATIVE) Urine WBC (Auto) 0-2 (0-5) /HPF Urine RBC (Auto) 3-5 A (0-2) /HPF U Hyaline Cast (Auto) 0-2 (0-2) /LPF U Epithel Cells (Auto) NONE (FEW) /HPF Urine Bacteria (Auto) NONE SEEN (NEGATIVE) /HPF Urine RBC TRACE-INTACT A (0-5) Lee/ul Urine Mucus (Auto) SLIGHT A (NEGATIVE) /HPF Ur Culture Indicated? NO Urine Glucose NEGATIVE (NEGATIVE) mg/dL 02/10/ Range/Units 15:08 WBC 8.3 (4.0-10.5) x10^3/uL RBC 3.89 L (4.1-5.4) x10^6/uL Hgb 12.6 (12.0-16.0) g/dL Hct 38.2 (35-47) % MCV 98.2 (78-100) fL MCH 32.4 H (26-32) pg MCHC 33.0 (32-36) g/dL RDW 13.5 (11.5-14.0) % Plt Count 259 (150-450) x10^3/uL MPV 9.7 (7.5-11.0) fL Gran % 52.2 (36.0-66.0) % Immature Gran % (Auto) 0.4 (0.00-0.4) % Nucleat RBC Rel Count 0.0 (0.00-0.1) % Eos # (Auto) 0.03 (0-0.5) x10^3/uL Immature Gran # (Auto) 0.03 (0.00-0.03) x10^3u/L Absolute Lymphs (auto) 3.28 (1.0-4.6) x10^3/uL Absolute Monos (auto) 0.60 (0.0-1.3) x10^3/uL Absolute Nucleated RBC 0.00 (0.00-0.01) x10^3u/L Lymphocytes % 39.6 (24.0-44.0) % Monocytes % 7.2 (0.0-12.0) % Eosinophils % 0.4 (0.00-5.0) % Basophils % 0.2 (0.0-0.4) % Absolute Granulocytes 4.32 (1.4-6.9) x10^3/uL Basophils # 0.02 (0-0.4) x10^3/uL Sodium (137-145) mmol/L Potassium (3.5-5.1) mmol/L Chloride (98-107) mmol/L Carbon Dioxide (22-30) mmol/L Anion Gap (5-15) MEQ/L BUN (7-17) mg/dL Creatinine (0.52-1.04) mg/dL Estimated GFR ML/MIN Glucose (74-106) mg/dL Lactic Acid (0.4-2.0) Calcium (8.4-10.2) mg/dL Total Bilirubin (0.2-1.3) mg/dL AST (14-36) U/L ALT (0-35) U/L Alkaline Phosphatase (38-126) U/L Serum Total Protein (6.3-8.2) g/dL Albumin (3.5-5.0) g/dL Lipase (23-300) U/L Urinalys Dipstick Clnc Urine Color (YELLOW) Urine Appearance (CLEAR) Urine pH (5-6) Ur Specific Allison (1.005-1.025) POC Urine Protein Conf (Negative) Urine Ketones (NEGATIVE) Urine Nitrite (NEGATIVE) Urine Bilirubin (NEGATIVE) Urine Urobilinogen (0-1) mg/dL Urine Leukocytes (NEGATIVE) Urine WBC (Auto) (0-5) /HPF Urine RBC (Auto) (0-2) /HPF U Hyaline Cast (Auto) (0-2) /LPF U Epithel Cells (Auto) (FEW) /HPF Urine Bacteria (Auto) (NEGATIVE) /HPF Urine RBC (0-5) Lee/ul Urine Mucus (Auto) (NEGATIVE) /HPF Ur Culture Indicated? Urine Glucose (NEGATIVE) mg/dL - Progress Progress: improved Progress Note: 02/10/22 18:05 56 years old is evaluated for sudden onset lower abdominal pain and because of pain passing out with nonfocal neuro exam throughout stay in the ER. EKG paced rhythm. Negative troponins. Patient was nauseated and vomited once after having a syncopal episode. Patient has 2 big bowel movements while in the ER and her pain is resolved. Baseline work-up grossly unremarkable. Obtained CT head and abdomen pelvis which are both negative for any acute findings. Her pain could be secondary to constipation with cramping, recommended using MiraLAX/stool softener and outpatient follow-up. Do not think needs any further work-up and is stable for discharge with outpatient follow-up. Counseled pt/family regarding: lab results, diagnosis, need for follow-up, rad results - Departure Departure Disposition: Home Clinical Impression: Lower abdominal pain, Constipation, Syncope Condition: Stable Critical Care Time: No Referrals: SOO DOWNEY [Primary Care Provider] - Follow up/PCP as directed (1-2 days for reevaluation) Instructions: Syncope (Fainting) (DC), Severe Abdominal Pain, Adult (DC) Additional Instructions: Take Tylenol as needed. Use MiraLAX/stool softener regularly. Follow-up with primary care for reevaluation. Return to ER for any worsening of abdominal pain already feeling dizzy lightheaded etc. .
[2022-02-10 15:41] LABS: Absolute Neutrophil Ct (ANC) 4.32 x10^3/uL (1.4-6.9); Basophil (Absolute #) 0.02 x10^3/uL (0-0.4); Eosinophil % 0.4 % (0.00-5.0); Eosinophil (Absolute #) 0.03 x10^3/uL (0-0.5); Hematocrit 38.2 % (35-47); Hemoglobin 12.6 g/dL (12.0-16.0); Lymphocyte (Absolute #) 3.28 x10^3/uL (1.0-4.6); Lymphocytes % 39.6 % (24.0-44.0); Mean Cell Volume 98.2 fL (78-100); Mean Corpuscular Hemoglobin 32.4 pg (26-32); Mean Platelet Volume 9.7 fL (7.5-11.0); Monocytes % 7.2 % (0.0-12.0); Neutrophil % 52.2 % (36.0-66.0); Platelet Count 259 x10^3/uL (150-450); Red Blood Count 3.89 x10^6/uL (4.1-5.4); Red Cell Distribution Width 13.5 % (11.5-14.0); White Blood Count 8.3 x10^3/uL (4.0-10.5)
[2022-02-10 15:57] LABS: ALBUMIN 4.1 g/dL (3.5-5.0); ANION GAP 11.7 MEQ/L (5-15); BILIRUBIN,TOTAL 0.6 mg/dL (0.2-1.3); Calcium 9.2 mg/dL (8.4-10.2); Creatinine 1 0.94 mg/dL (0.52-1.04); EST GLOMERULAR FILTRATION RATE 59.7 ML/MIN; Potassium 3.6 mmol/L (3.5-5.1); Total Protein 7.3 g/dL (6.3-8.2)
[2022-02-10 17:18] VITALS: BP 187/73
[2022-02-10 17:38] LABS: Appearance CLEAR (CLEAR); Bilirubin NEGATIVE (NEGATIVE); Glucose NEGATIVE (NEGATIVE); Ketones NEGATIVE (NEGATIVE)
[2022-02-10 17:39] LABS: Dipstick done @ ? MAIN LAB; Nitrite NEGATIVE (NEGATIVE); Ph 5.5 (5-6); Protein,Urine Dip NEGATIVE (Negative); RBC TRACE-INTACT Ery/ul (0-5); Urobilinogen 0.2 mg/dL (0-1)
[2022-02-10 17:42] LABS: Hyaline Casts 0-2 /LPF (0-2); Mucus SLIGHT /HPF (NEGATIVE); WBC 0-2 /HPF (0-5)
[2022-02-10 17:52] LABS: Bacteria NONE SEEN /HPF (NEGATIVE); Urine Cultured Indicated? NO
[2022-02-10 18:05] VITALS: PULSE 70
[2022-02-10 18:09] VITALS: O2SAT 16
--- NOTE | 2022-02-10 19:41 | XRAY ---
Indication: Syncope, nausea, and vomiting.. Multiple contiguous images obtained through the head without contrast. Comparison: None Age-appropriate global atrophy, mild periventricular degenerative micro-ischemia bilaterally, and remote lacunar infarct left thalamus. No acute intracranial hemorrhage, abnormal extra-axial fluid collection, or mass effect. Fourth ventricle is midline without hydrocephalus. Bony calvarium intact with incidental hyperostosis frontalis interna. Chronic mucoperiosteal thickening left maxillary sinus. Remaining paranasal sinuses and mastoid air cells are clear. Impression: 1. Nonacute senile brain with remote lacunar infarct left thalamus. 2. Chronic left Nexus as disease. Comment: Preliminary interpretation made by [facility]. No critical discrepancy.
--- NOTE | 2022-02-10 19:45 | XRAY ---
Indication: Lower abdomen pain, nausea, and vomiting.. Multiple contiguous axial images obtained through the abdomen and pelvis without contrast. Comparison: None Lung bases demonstrates scattered atelectasis/scarring and tiny right lower lobe calcified granuloma. Heart not enlarged with partially visualized pacer leads. Noncontrasted stomach and bowel loops appear nonobstructed with normal appendix. Minimal sigmoid diverticulosis without diverticulitis. No free fluid/air. Tiny hepatic/splenic calcified granulomas. Remaining liver, gallbladder, pancreas, spleen, adrenal glands, kidneys, ureters, bladder, and uterus are unremarkable for noncontrast exam. Mild scattered aortoiliac calcifications without AAA. Osseous structures intact with osteopenia, mild dextroscoliosis centered at L3, minimal/mild multilevel thoracolumbar degenerative spondylosis, L2-L3 spinous process fusion hardware, and moderate/advanced bilateral hip degenerative arthropathy right greater than left. Impression: 1. Sigmoid diverticulosis, arteriosclerotic disease, chronic bony findings, and old granulomatous disease. 2. Remaining CT abdomen/pelvis without contrast exam is negative. Comment: Preliminary interpretation made by [facility]. No critical discrepancy.
== END 2022-02-10 18:25 | disposition home or self-care (01) ==
LOC: ED 14:57
DX: K59.00 Constipation, unspecified (principal); R55 Syncope and collapse; R10.30 Lower abdominal pain, unspecified; R11.10 Vomiting, unspecified; I10 Essential (primary) hypertension; Z79.899 Other long term (current) drug therapy
CPT/HCPCS: 36415; 70450; 74176; 80053; 81015; 83605; 83690; 85025; 96360; 96361; 96374; 99284; P9612; J2270; J2405

== ENCOUNTER 2022-02-24 06:44 | Emergency (ER) | payer MEDICARE, OTHER ==
[2022-02-24] MEDS ORDERED: XYLOCAINE 1% HCL 20 ML MDV IJ ONE (06:45)
[2022-02-24] MEDS ORDERED: TORAdol 30 mg Injection IM ONE (07:04)
[2022-02-24] MEDS ORDERED: Norflex 60 MG/2 ML IM ONE (07:04)
[2022-02-24] MEDS ORDERED: Norflex 60 MG/2 ML ONE (07:10)
[2022-02-24] MEDS ORDERED: TORAdol 30 mg Injection ONE (07:10)
--- NOTE | 2022-02-24 07:14 | ERPHSYRPT ---
- History of Present Illness Time Seen by Provider: 02/24/22 07:11 Source: patient, family Exam Limitations: no limitations Patient Subjective Stated Complaint: pt states "I fell on my L wrist and elbow this morning." Triage Nursing Assessment: Pt helped to wheelchair from car and helped to cot from wheelchair with 2 nurse assist, pt alert and oriented x3, pt c/o L wrist injury and L elbow pain d/t fall this morning, pt denies blood thinners or hitting head, pt has obvious injury to L wrist with bruising tenderness and swelling Physician History: pt states "I fell on my L wrist and elbow this morning." pt c/o L wrist injury and L elbow pain d/t fall this morning, pt denies blood thinners or hitting head, pt has obvious injury to L wrist with bruising tenderness and swelling Occurred: just prior to arrival Reason for Fall: tripped Injuries/Pain Location: upper extremity Loss of Consciousness: no loss of consciousness Quality: aching Severity of Pain-Max: moderate Severity of Pain-Current: moderate Modifying Factors: Improves With: cold therapy Associated Symptoms (Fall): denies symptoms Allergies/Adverse Reactions: No Known Drug Allergies Allergy (Verified 02/24/22 06:45) Home Medications: Fluoxetine HCl 10 mg [Prozac 10 mg] 10 mg PO DAILY 12/20/20 [History] Hydrocodone/Acetaminophen [Hydrocodone-Acetamin 10-325 mg] 0.5 tablet PO Q8HPRN PRN 12/20/20 [History] lisinopriL [Zestril] 2.5 mg PO BID 12/20/20 [History] Hx Tetanus, Diphtheria Vaccination/Date Given: Yes Hx Influenza Vaccination/Date Given: Yes Hx Pneumococcal Vaccination/Date Given: Yes Immunizations Up to Date: Yes Travel Risk - International Travel Have you traveled outside of the country in past 3 weeks: No - Coronavirus Screening Are you exhibiting any of the following symptoms?: No Close contact with a COVID-19 positive Pt in past 14-21 Days: No - Vaccine Status Have you recieved a Covid-19 vaccination: Yes 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 - Vaccination Dates Date of 2cond Vaccination (if applicable): july - Review of Systems Constitutional: No Symptoms Eyes: No Symptoms Ears, Nose, & Throat: No Symptoms Respiratory: No Symptoms Cardiac: No Symptoms Abdominal/Gastrointestinal: No Symptoms Genitourinary Symptoms: No Symptoms Musculoskeletal: Deformity, Fall, Joint Pain, Joint Swelling (left wrist) - Past Medical History Pertinent Past Medical History: Yes Neurological History: No Pertinent History ENT History: Cataracts Cardiac History: Arrhythmia, Hypertension Respiratory History: No Pertinent History Endocrine Medical History: Other Musculoskeletal History: Osteoarthritis GI Medical History: No Pertinent History History: No Pertinent History Psycho-Social History: No Pertinent History Female Reproductive Disorders: No Pertinent History Other Medical History: bradycardia, Pacemaker, UTI, - Past Surgical History Past Surgical History: Yes Neuro Surgical History: No Pertinent History Cardiac: Internal Defibrillator, Pacemaker Respiratory: No Pertinent History Gastrointestinal: No Pertinent History Genitourinary: No Pertinent History Musculoskeletal: No Pertinent History Female Surgical History: No Pertinent History Other Surgical History: BACK SURGERY--LUMBAR - Social History Smoking Status: Former smoker Exposure to second hand smoke: No Drug Use: none Patient Lives Alone: No Significant Family History: heart disease - Nursing Vital Signs Nursing Vital Signs: Initial Vital Signs Temperature 97.4 F 02/24/22 06:46 Pulse Rate 60 02/24/22 06:46 Respiratory Rate 18 02/24/22 06:46 Blood Pressure 188/74 02/24/22 06:46 O2 Sat by Pulse Oximetry 100 02/24/22 06:46 Pain Scale Pain Intensity 10 - [place]rill Coma Score Best Eye Response ([place]): (4) open spontaneously Best Verbal Response ([place]ita): (5) oriented Best Motor Response ([place]): (6) obeys commands [place] Total: 15 - Physical Exam General Appearance: no apparent distress, alert Head Injury: no evidence of injury Eye Exam: PERRL/EOMI ENT Exam: airway nml Neck Exam: normal inspection, No tenderness Respiratory/Chest Exam: normal breath sounds, No chest tenderness, No respiratory distress Cardiovascular Exam: normal heart sounds, regular rate/rhythm Gastrointestinal Exam: soft, No tenderness, No distention, No guarding, No ecchymosis Back Exam: normal inspection, No vertebral tenderness Extremity Exam: normal inspection, normal range of motion, pelvis stable, joint swelling (left wrist), limited range of motion, evidence of injury, pain with movement, No deformities, No motor deficit, No pulse deficit Neurologic Exam: alert, oriented x 3, cooperative, sensation nml, No motor deficits Skin Exam: normal color, warm, dry SpO2: 100 - Course Nursing assessment & vital signs reviewed: Yes - Radiology Exams Wrist X-ray Interpretation: Reviewed by me (distal radius and ulnar fracture left side) Ordered Tests: Active Orders 24 hr Category Date Time Status Splint STAT Care 02/24/22 07:49 Active WRIST (MIN 3 VIEWS) Stat Exams 02/24/22 07:26 Taken Medication Summary Generic Name Dose Route Start Last Admin Trade Name Freq PRN Reason Stop Dose Admin Ceftriaxone Sodium 1,000 mg 02/24/22 07:50 Ceftriaxone Sodium 1000 Mg Inj Vial IM 02/24/22 07:51 STAT ONE Discontinued Medications Generic Name Dose Route Start Last Admin Trade Name Freq PRN Reason Stop Dose Admin Ketorolac Tromethamine 60 mg 02/24/22 07:04 02/24/22 07:26 Ketorolac Tromethamine 30 Mg/Ml Inj IM 02/24/22 07:05 Not Given STAT ONE Ketorolac Tromethamine Confirm 02/24/22 07:10 Ketorolac Tromethamine 30 Mg/Ml Inj Administered 02/24/22 07:11 Dose 60 mg .ROUTE .STK-MED ONE Orphenadrine Citrate 60 mg 02/24/22 07:04 02/24/22 07:14 Orphenadrine Citrate 60 Mg/2 Ml Vial IM 02/24/22 07:05 60 mg STAT ONE Administration Orphenadrine Citrate Confirm 02/24/22 07:10 Orphenadrine Citrate 60 Mg/2 Ml Vial Administered 02/24/22 07:11 Dose 60 mg .ROUTE .STK-MED ONE - Progress Progress: unchanged, pain not gone completely Progress Note: 02/24/22 07:52 After reviewing x-ray results with patient and her daughter, trauma center emergency room at [facility] were contacted. Because of the open fracture it required fixation and that is why he called there and they accepted patient. 1 g of Rocephin intramuscular given. Splint was applied. X- ray where diverted to the cloud so that trauma center can see the films. Arrangements for transfer is made. Discussed with : Rey (ER Trauma center, [facility]) Counseled pt/family regarding: need for follow-up, rad results - Departure Departure Disposition: Transfer ([facility] ER) Clinical Impression: Radius and ulna distal fracture Qualifiers: Encounter type: initial encounter Fracture type: open Open fracture type: open type I or II Laterality: left Qualified Code(s): S52.502B - Unspecified fracture of the lower end of left radius, initial encounter for open fracture type I or II Condition: Stable Critical Care Time: Yes Critical Care Time(excluding separately billable procedures): Critical 30-74 mins Referrals: SOO DOWNEY [Primary Care Provider] - Follow up/PCP as directed Instructions: Preventing Falls in Older Adults, Wrist Fracture (DC)
[2022-02-24] MEDS ORDERED: Rocephin 1000 MG INJ IM ONE (07:50)
[2022-02-24] MEDS ORDERED: Rocephin 1000 MG INJ ONE (08:26)
[2022-02-24] MEDS ORDERED: Hydromorphone 1 mg/ml Injection IV ONE (08:45)
[2022-02-24] MEDS ORDERED: Hydromorphone 1 mg/ml Injection ONE (08:47)
--- NOTE | 2022-02-24 08:50 | XRAY ---
Indication: Pain following fall. Comparison: None 3 view left wrist demonstrates posteriorly displaced comminuted fractures distal radius/ulna and soft tissue swelling. Elsewhere osteopenia and mild degenerative changes 1st metacarpal multangular articulation.
[2022-02-24 10:06] VITALS: BP 175/102; PULSE 88; O2SAT 96
== END 2022-02-24 09:40 | disposition short-term general hospital (02) ==
LOC: ED 06:44
DX: S52.502B Unspecified fracture of the lower end of left radius, initial encounter for open fracture type I or II (principal); S52.602B Unspecified fracture of lower end of left ulna, initial encounter for open fracture type I or II; W19.XXXA Unspecified fall, initial encounter; M25.532 Pain in left wrist; M25.522 Pain in left elbow; I10 Essential (primary) hypertension; Z79.899 Other long term (current) drug therapy
CPT/HCPCS: 29125; 73110; 96372; 96375; 99285; 99291; J0696; J1170; J1885; J2360

== ENCOUNTER 2023-04-20 22:10 | Emergency (ER) | payer MEDICARE, OTHER ==
[2023-04-20 22:44] VITALS: RESP 20; TEMP 98.5
--- NOTE | 2023-04-20 22:44 | ERPHSYRPT ---
- History of Present Illness Source: patient, family Physician History: 87 years old female with past medical history of hypertension, dementia, pacemaker. Patient lives with her who witnessed her laying on the ground at home, on hardwood floor. it seem that the patient, after getting up from bed she fell down. The patient does have a history of gait abnormality, poor balance and falls, she usually uses a walker, not sure if she used her walker tonight. Her daughter is at bedside giving most of the information. The patient is denying any complain at present, claiming that she is feeling all right. Per her daughter she fell almost a year ago and fractured her right knee. The patient is denying any headache, no neck pain, no back pain, no chest pain, no pain to her upper or lower extremities. She is fully awake, alert she is oriented to person and place but not time. The patient has a small superficial laceration to her left occipital area that is not bleeding at present. Allergies/Adverse Reactions: No Known Drug Allergies Allergy (Verified 04/20/23 22:18) Home Medications: Fluoxetine HCl 10 mg [Prozac 10 mg] 10 mg PO DAILY 12/20/20 [History] Hydrocodone/Acetaminophen [Hydrocodone-Acetamin 5-325 mg] 1 tab PO Q8H PRN [place] N MDD 3 04/20/23 [History] Lisinopril 10 mg [Zestril 10 MG] 0.5 tab PO DAILY 04/20/23 [History] Lisinopril 10 mg [Zestril 10 MG] 10 mg PO DAILY 04/20/23 [History] Rivaroxaban [Xarelto] 20 mg PO DAILY 04/20/23 [History] Hx Tetanus, Diphtheria Vaccination/Date Given: Yes Hx Influenza Vaccination/Date Given: Yes Hx Pneumococcal Vaccination/Date Given: Yes Travel Risk - Vaccine Status Have you recieved a Covid-19 vaccination: Yes 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 She had an unwitnessed fall at home today, her found her on hardwood floor with a laceration to her left occipital area.), No Dizziness, No Focal Weakness, No Sensory Changes Psychological: No Symptoms, Memory Loss Endocrine: No Symptoms All Other Systems: Reviewed and Negative - Past Medical History Pertinent Past Medical History: Yes Neurological History: No Pertinent History ENT History: Cataracts Cardiac History: Arrhythmia, Hypertension Respiratory History: No Pertinent History Endocrine Medical History: Other Musculoskeletal History: Osteoarthritis GI Medical History: No Pertinent History History: No Pertinent History Psycho-Social History: No Pertinent History Female Reproductive Disorders: No Pertinent History Other Medical History: bradycardia, Pacemaker, UTI, - Past Surgical History Past Surgical History: Yes Neuro Surgical History: No Pertinent History Cardiac: Internal Defibrillator, Pacemaker Respiratory: No Pertinent History Gastrointestinal: No Pertinent History Genitourinary: No Pertinent History Musculoskeletal: No Pertinent History Female Surgical History: No Pertinent History Other Surgical History: BACK SURGERY--LUMBAR - Social History Smoking Status: Former smoker Exposure to second hand smoke: No Drug Use: none Patient Lives Alone: No Significant Family History: heart disease - Nursing Vital Signs Nursing Vital Signs: Initial Vital Signs Temperature 98.5 F 04/20/23 22:19 Pulse Rate 68 04/20/23 22:19 Respiratory Rate 20 04/20/23 22:19 O2 Sat by Pulse Oximetry 95 04/20/23 22:19 Pain Scale Pain Intensity 0 - Evita Coma Score Best Eye Response ([place]): (4) open spontaneously Best Verbal Response (Evita): (5) oriented Best Motor Response ([place]): (6) obeys commands [place] Total: 15 - Physical Exam General Appearance: no apparent distress Head Injury: lacerations (The patient has a vertical 3 cm superficial skin laceration to the left occipital area, no active bleeding, no foreign body.) Eye Exam: bilateral eye: PERRL, EOMI ENT Exam: airway nml Neck Exam: supple, trachea midline, full range of motion, normal alignment, normal inspection Cardiovascular/Respiratory Exam: chest non-tender, normal breath sounds, regular rate/rhythm Gastrointestinal/Abdominal Exam: soft, non tender, no distention Pelvic Exam: not done Rectal Exam: deferred Back Exam: normal inspection, No vertebral tenderness Extremity Exam: non-tender, normal range of motion, normal inspection Mental Status Exam: alert, cooperative, disoriented to time, No agitated, No uncooperative, No depressed affect, No disoriented to person, No disoriented to place continuous towel roller Exam: normal hearing, normal speech, PERRL Motor/Sensory Exam: no motor deficit, no sensory deficit, CN II-XII intact Skin Exam: normal color, warm, dry, No rash SpO2 Interpretation: normal Procedures - Laceration/Wound Repair Occipital Time of Procedure: 00:00 Wound Location: Left, head Wound Length (cm): 3 Wound's Depth, Shape: superficial Wound Explored: clean Irrigated: Yes Hibiclens Prep: Yes Wound Debrided: minimal Wound Repaired With: [place] (3) Layer Closure?: No Sterile Dressing Applied?: No Splint Applied?: No Sling Applied?: No - Course Nursing assessment & vital signs reviewed: Yes Ordered Tests: Active Orders 24 hr Category Date Time Status CERVICAL SPINE WO CONTRAST [CT] Stat Exams 04/20/23 22:54 Completed HEAD WITHOUT CONTRAST [CT] Stat Exams 04/20/23 22:39 Completed - Progress Progress Note: 04/20/23 22:49 87 years old female with past medical history of hypertension, dementia, pacemaker. Patient lives with her who witnessed her laying on the ground at home, on hardwood floor, after getting up from bed, she must have fallen down. The patient does have a history of gait abnormality, poor balance and falls, she usually uses a walker, not sure if she used her walker tonight. Her daughter is at bedside giving most of the information. The patient is denying any complain at present, claiming that she is feeling all right. Emergency room course and medical decision making. CT scan of brain rule out any subdural or intracranial bleed, CT cervical Spine. Will place guanaco when the patient returns back from the CT scan. 04/21/23 00:[address] scan of the brain and cervical spine are negative. 3 guanaco were placed to the left occipital laceration as described in details in the procedure note. The patient will be discharged home accompanied with daughter. For the patient can take Tylenol as needed Follow-up with her family physician in 5 days for guanaco removal. 04/21/23 00:31 - Departure Departure Disposition: Home Clinical Impression: Head injury, acute, Laceration of occipital scalp Condition: Stable Critical Care Time: No Referrals: CHLOÉ CERON DO [Primary Care Provider] - Follow up/PCP as directed Instructions: Laceration Repair With Guanaco (DC) Additional Instructions: Tylenol 1-2 extra strength 3-4 times a day as needed for headache and/or pain. Follow-up with family physician in 5 days for staple removal.
--- NOTE | 2023-04-20 23:29 | XRAY ---
CLINICAL HISTORY:Head Injury COMPARISON:None TECHNIQUE:Multiple axial images are obtained from the skull base to the vertex without contrast. CT scan was performed according to ALARA (as low as reasonable achievable). FINDINGS: There is cerebral atrophy. There are old lacunar infarcts in the right internal capsule and left thalamus. No evidence of space occupying lesion, hemorrhage, edema, mass effect, midline shift, extra axial collection, or hydrocephalus is noted. Basal cisterns are symmetric and normal in size and configuration. There are scattered periventricular hypodensities as can be seen with chronic microvascular ischemic changes. The ortiz-white matter differentiation is preserved. There is moderate mucosal thickening in the left maxillary sinus. Visualized paranasal sinuses and mastoid air cells are well aerated. Orbital contents are within normal limits. Incidental hyperostosis frontalis interna noted. Bony structures are intact. IMPRESSION: 1.No evidence of acute intracranial abnormality is demonstrated. 2. Chronic microvascular ischemic changes. 3. Cerebral atrophy. 4. 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 Seng Henao MD. (04/20/2023 23:25:17 EST)
--- NOTE | 2023-04-21 | XRAY ---
CLINICAL HISTORY:Fall with pain COMPARISON:None TECHNIQUE:: Computed tomography of the cervical spine performed without intravenous contrast. Contiguous axial images were obtained from the skull base to T2, with sagittal and coronal reformatted images reconstructed from the axial data. CT scan was performed according to ALARA (as low as reasonable achievable). FINDINGS: The normal cervical lordotic curvature is straighetened - likely due to muscle spasm. Cervical vertebral bodies are normal in height, with no evidence of fracture. Lateral masses of C1 are symmetrical, and the dens is intact. Prevertebral soft tissues are not widened. The remaining suprahyoid and infrahyoid soft tissues in the neck are unremarkable. Multilevel degenerative bone and disc changes are noted in the form of osteophytes, reduced disc spaces and facet arthropathy causing mild neural foraminal narrowing at C4-C5, C5-C6 and C6-C7 levels. There is minor grade I anterolisthesis of C3 on C4 vertebra and C4 on C5 vertebra. IMPRESSION: 1. No acute fracture. 2. Degenerative changes as described above. 3. Minor grade I anterolisthesis of C3 on C4 vertebra and C4 on C5 vertebra. Electronically Signed by: Dr. Seng Henao MD. (04/20/2023 23:54:49 EST)
[2023-04-21 00:07] VITALS: BP 161/87; PULSE 67; O2SAT 98
== END 2023-04-21 00:35 | disposition home or self-care (01) ==
LOC: ED 22:10
DX: Z04.3 Encounter for examination and observation following other accident (principal); S01.01XA Laceration without foreign body of scalp, initial encounter; W18.30XA Fall on same level, unspecified, initial encounter; Y92.003 Bedroom of unspecified non-institutional (private) residence as the place of occurrence of the external cause; Z91.81 History of falling; I10 Essential (primary) hypertension; Z79.891 Long term (current) use of opiate analgesic; Z79.01 Long term (current) use of anticoagulants; Z79.899 Other long term (current) drug therapy
CPT/HCPCS: 12002; 70450; 72125; 99283